=== PATIENT | female | born 1970 | race Caucasian/White ===

== ENCOUNTER 2024-07-02 12:00 | Inpatient (IN) | payer MEDICAID ==
[~2024-07-02] VITALS: Ht 160 cm; Wt 120.1 kg
[2024-07-02] MEDS ORDERED: loperamide 2mg capsule PO PRN (14:25)
[2024-07-02] MEDS ORDERED: acetaminophen 325mg tablet PO PRN (14:25)
[2024-07-02 14:40] VITALS: BP 119/84; PULSE 86; RESP 16; TEMP 97.8; O2SAT 95
[2024-07-02 15:00] VITALS: RESP 16; O2SAT 95
[2024-07-02] MEDS ORDERED: SERT-153 PO (17:40)
[2024-07-02] MEDS ORDERED: QUET200T PO (17:40)
[2024-07-02] MEDS ORDERED: CLON0.2T PO (17:40)
[2024-07-02] MEDS ORDERED: GABA300C PO (17:40)
[2024-07-02] MEDS ORDERED: CLON0.1T2 PO (17:40)
[2024-07-02] MEDS ORDERED: LEVO100T PO (17:43)
[2024-07-02] MEDS ORDERED: OMEP20CA16 PO (17:43)
[2024-07-02 18:49] VITALS: RESP 16; O2SAT 95
[2024-07-02 19:30] VITALS: BP 127/56; PULSE 78; RESP 17; TEMP 98.4; O2SAT 95
[2024-07-02] MEDS: pantoprazole 40mg Tablet.DR PO SCH (19:56)
[2024-07-02] MEDS: cloNIDine 0.1 mg tablet PO SCH (19:56)
[2024-07-02] MEDS: quetiapine 100mg tablet PO SCH (19:56)
[2024-07-02] MEDS: gabapentin 300mg capsule PO SCH (19:56)
[2024-07-03 06:57] LABS: EOSINOPHILS # (AUTO) 0.1 X10'3 (0-0.9); EOSINOPHILS % (AUTO) 2.3 % (0-6); HEMATOCRIT 37.5 % (35.0-45.0); HEMOGLOBIN 12.7 g/dl (12.0-16.0); LYMPHOCYTES % (AUTO) 23.8 % (21-51); MEAN CORPUSCULAR HEMOGLOBIN 30.3 PG (27.0-31.0); MEAN CORPUSCULAR HGB CONC 33.9 g/dL (33.0-36.5); MEAN CORPUSCULAR VOLUME 89.4 FL (78-98); MEAN PLATELET VOLUME 8.5 FL (7.4-10.4); MONOCYTES # (AUTO) 0.4 X10'3 (0-0.9); MONOCYTES % (AUTO) 8.8 % (2-12); NEUTROPHILS # (AUTO) 2.7 X10'3 (1.8-7.7); NEUTROPHILS % (AUTO) 64.1 % (42-75); PLATELET COUNT 183 X10'3 (140-440); RED BLOOD COUNT 4.19 X10'6 (4.20-5.60); RED CELL DISTRIBUTION WIDTH 14.4 % (11.5-14.5); WHITE BLOOD COUNT 4.3 X10'3 (4.5-11.0)
[2024-07-03 07:00] VITALS: RESP 14; O2SAT 90
[2024-07-03 07:15] LABS: ALANINE AMINOTRANSFERASE 36 U/L (12-78); ALBUMIN 3.3 G/DL (3.4-5.0); ALBUMIN/GLOBULIN RATIO 0.9 (1.1-1.5); ALKALINE PHOSPHATASE 90 IU/L (46-116); ANION GAP 6 (8-16); ASPARTATE AMINO TRANSFERASE 21 U/L (10-37); BILIRUBIN,TOTAL 0.8 MG/DL (0.1-1.0); BLOOD UREA NITROGEN 8 MG/DL (7-18); CALCIUM 8.8 MG/DL (8.5-10.1); CHLORIDE 108 MMOL/L (99-107); CHOL/HDL RATIO 5.6 (0.00-4.99); CHOLESTEROL 186 MG/DL (0-200); CREATININE 1.14 MG/DL (0.40-0.90); GLUCOSE 110 MG/DL (70-104); HDL CHOLESTEROL 33 MG/DL (35-60); LDL CHOLESTEROL 123 MG/DL (50-100); POTASSIUM 4.5 MMOL/L (3.5-5.1); SODIUM 144 MMOL/L (135-145); TOTAL CARBON DIOXIDE 29.6 MMOL/L (24-32); TOTAL PROTEIN 6.9 G/DL (6.4-8.2); TRIGLYCERIDES 157 MG/DL (20-135); eCRCL 47 ML/MIN; eGFR 50 ML/MIN
[2024-07-03 07:20] LABS: HEMOGLOBIN A1C 6.3 % (4.5-6.2)
[2024-07-03] MEDS: levoTHYROXINE 100mcg tablet PO SCH (07:30)
[2024-07-03] MEDS: sertraline 50mg tablet PO SCH (07:31)
[2024-07-03] MEDS: cloNIDine 0.1 mg tablet PO SCH (07:31)
[2024-07-03] MEDS: acetaminophen 325mg tablet PO PRN (07:32)
[2024-07-03 08:00] VITALS: BP 139/66; PULSE 77; RESP 14; TEMP 98.3; O2SAT 90
[2024-07-03] MEDS: LORazepam 1 MG tablet PO ONE (13:01)
[2024-07-03 13:08] LABS: PRO BRAIN NATRIURETIC PEPTIDE 129 PG/ML (0-125)
[2024-07-03 19:00] VITALS: RESP 16; O2SAT 94
[2024-07-03 20:00] VITALS: BP 117/63; PULSE 84; RESP 16; TEMP 97.3; O2SAT 94
[2024-07-03] MEDS: quetiapine 100mg tablet PO SCH (20:06)
[2024-07-04 07:00] VITALS: RESP 16; O2SAT 94
[2024-07-04 08:00] VITALS: BP 133/93; PULSE 92; RESP 16; TEMP 97.9; O2SAT 94
[2024-07-04] MEDS: hydrOXYzine 25 MG tablet PO PRN (08:30)
[2024-07-04] MEDS: LORazepam 1 MG tablet PO ONE (11:57)
[2024-07-04 19:00] VITALS: RESP 16; O2SAT 94
[2024-07-04 19:50] VITALS: BP 129/77; PULSE 72; RESP 16; TEMP 97.6; O2SAT 94
[2024-07-04] MEDS: traZODone 50mg tablet PO ONE (21:37)
[2024-07-05 07:40] VITALS: BP 136/96; PULSE 74; RESP 16; TEMP 97.1; O2SAT 91
[2024-07-05 08:24] VITALS: RESP 16; O2SAT 91
[2024-07-05] MEDS: mag hydrox/Alum hydrox/simeth 30ml oral suspension PO PRN (10:51)
[2024-07-05] MEDS: sertraline 50mg tablet PO ONE (16:56)
[2024-07-05] MEDS: LORazepam 1 MG tablet PO ONE (17:28)
[2024-07-05 19:42] VITALS: BP 128/77; PULSE 80; RESP 16; TEMP 97.6; O2SAT 95
[2024-07-05] MEDS: traZODone 50mg tablet PO SCH (20:08)
[2024-07-05] MEDS: quetiapine 100mg tablet PO SCH (20:08)
[2024-07-06] MEDS: quetiapine 100mg tablet PO SCH (07:35)
[2024-07-06] MEDS: sertraline 50mg tablet PO SCH (07:35)
[2024-07-06 07:38] VITALS: RESP 17; O2SAT 91
[2024-07-06 07:41] VITALS: BP 131/94; PULSE 69; RESP 17; TEMP 96.8; O2SAT 91
[2024-07-06 19:00] VITALS: RESP 12; O2SAT 92
[2024-07-06 20:10] VITALS: BP 111/71; PULSE 77; RESP 12; TEMP 98.1; O2SAT 92
[2024-07-06] MEDS: QUEtiapine 25mg tablet PO SCH (20:46)
[2024-07-07 07:00] VITALS: RESP 14; O2SAT 91
[2024-07-07] MEDS: sertraline 50mg tablet PO SCH (07:48)
[2024-07-07 08:00] VITALS: BP 106/65; PULSE 83; RESP 14; TEMP 97.1; O2SAT 91
[2024-07-07 19:00] VITALS: RESP 14; O2SAT 96
[2024-07-07 20:00] VITALS: BP 111/74; PULSE 68; RESP 14; TEMP 98.3; O2SAT 96
[2024-07-08 07:00] VITALS: RESP 12; RESP 16; O2SAT 91; O2SAT 98
[2024-07-08 08:00] VITALS: BP 137/89; PULSE 84; RESP 12; TEMP 97; O2SAT 91
[2024-07-08 19:28] VITALS: RESP 17; O2SAT 98
[2024-07-08] MEDS: magnesium hydroxide 30ml (MOM) UD suspension PO PRN (19:35)
[2024-07-08 19:57] VITALS: BP 115/85; PULSE 87; RESP 17; TEMP 97.2; O2SAT 98
[2024-07-09 07:00] VITALS: RESP 16; O2SAT 91
[2024-07-09 08:00] VITALS: BP 122/75; PULSE 75; RESP 16; TEMP 97.4; O2SAT 91
[2024-07-09] MEDS: magnesium citrate 296ml oral solution PO ONE (14:52)
[2024-07-09 19:00] VITALS: RESP 16; O2SAT 96
[2024-07-09 20:00] VITALS: BP 112/64; PULSE 83; RESP 16; TEMP 97.7; O2SAT 96
[2024-07-09] MEDS: docusate sod 100mg capsule PO SCH (20:20)
[2024-07-09] MEDS: Melatonin 3mg tablet PO ONE (22:39)
[2024-07-09] MEDS: gabapentin 300mg capsule PO ONE (22:40)
[2024-07-09] MEDS: magnesium oxide 400mg tablet PO SCH (22:40)
[2024-07-10 07:00] VITALS: RESP 18; O2SAT 94
[2024-07-10] MEDS: sertraline 50mg tablet PO SCH (07:33)
[2024-07-10 08:00] VITALS: BP 116/65; PULSE 83; RESP 18; TEMP 97; O2SAT 94
[2024-07-10 19:00] VITALS: RESP 16; O2SAT 100
[2024-07-10 20:00] VITALS: BP 102/57; PULSE 104; RESP 16; TEMP 98.3; O2SAT 100
[2024-07-10] MEDS: pramipexole 0.25mg tablet PO SCH (20:15)
[2024-07-10] MEDS: gabapentin 300mg capsule PO SCH (20:15)
[2024-07-11 07:50] VITALS: BP 122/83; PULSE 83; RESP 16; TEMP 98; O2SAT 96
[2024-07-11 08:00] VITALS: RESP 16; O2SAT 96
[2024-07-11 19:00] VITALS: BP 138/98; PULSE 85; RESP 18; TEMP 97; O2SAT 97
[2024-07-12 07:12] VITALS: BP 117/73; PULSE 81; RESP 16; TEMP 97; O2SAT 95
[2024-07-12 08:00] VITALS: RESP 16; O2SAT 96
[2024-07-12 19:07] VITALS: BP 129/73; PULSE 82; RESP 18; TEMP 97.2; O2SAT 94
[2024-07-13 08:00] VITALS: BP 145/97; PULSE 98; RESP 16; TEMP 97.7; O2SAT 94
[2024-07-13] MEDS ORDERED: QUET25TA36 PO (12:32)
[2024-07-13] MEDS ORDERED: gabapentin capsule PO (12:32)
[2024-07-13] MEDS ORDERED: CLON0.1T2 PO (12:32)
[2024-07-13] MEDS ORDERED: PANT40TA54 PO (12:32)
[2024-07-13] MEDS ORDERED: TRAZ-251 PO (12:32)
[2024-07-13] MEDS ORDERED: PRAMIPEXOLE DI HCL PO (12:32)
[2024-07-13] MEDS ORDERED: HYDR-3686 PO (12:32)
[2024-07-13] MEDS ORDERED: SERT200C PO (12:32)
[2024-07-13] MEDS ORDERED: LEVO100T9 PO (12:32)
[2024-07-13 19:00] VITALS: RESP 20; O2SAT 96
[2024-07-13 19:17] VITALS: BP 135/87; PULSE 82; RESP 20; TEMP 98; O2SAT 96
[2024-07-13] MEDS: traZODone 50mg tablet PO SCH (20:04)
[2024-07-14 08:00] VITALS: BP 140/80; PULSE 78; RESP 16; TEMP 96.2; O2SAT 92
[2024-07-14 19:00] VITALS: RESP 16; O2SAT 97
[2024-07-14 20:00] VITALS: PULSE 72; RESP 16; TEMP 97.9; O2SAT 97
[2024-07-15 07:00] VITALS: RESP 16; O2SAT 93
[2024-07-15 08:00] VITALS: BP 117/67; PULSE 68; RESP 16; TEMP 97.9; O2SAT 93
== END 2024-07-15 11:05 | DRG 753 ==
LOC: ADULT MH 12:00
PROVIDERS: ADMIT Psychiatry & Neurology Psychiatry; ATTEND Psychiatry & Neurology Psychiatry
PROC: GZHZZZZ Group Psychotherapy (ICD-10-PCS; principal; 2024-07-03)
PROC: GZ51ZZZ Individual Psychotherapy, Behavioral (ICD-10-PCS; 2024-07-03)
DX: F31.32 Bipolar disorder, current episode depressed, moderate (principal); R45.851 Suicidal ideations; G25.81 Restless legs syndrome; F41.9 Anxiety disorder, unspecified; E66.01 Morbid (severe) obesity due to excess calories; Z20.822 Contact with and (suspected) exposure to COVID-19; E03.9 Hypothyroidism, unspecified; F43.10 Post-traumatic stress disorder, unspecified; Z59.02 Unsheltered homelessness; Z79.899 Other long term (current) drug therapy; Z87.891 Personal history of nicotine dependence; Z68.42 Body mass index [BMI] 45.0-49.9, adult
CPT/HCPCS: 36415; 71045; 71046; 80053; 80061; 83036; 83880; 84443; 84480; 85025; 87081; 87811; Q0177

== ENCOUNTER 2024-08-22 14:50 | Inpatient (IN) | payer MEDICAID ==
[~2024-08-22] VITALS: Ht 160 cm; Wt 115.5 kg
[~2024-08-22 14:50] MED LIST: CLON0.1T2 PO; HYDR-3686 PO; LEVO100T9 PO; PANT40TA54 PO; PRAMIPEXOLE DI HCL PO; QUET25TA36 PO; SERT200C PO; TRAZ-251 PO; gabapentin capsule PO
[2024-08-22 16:45] VITALS: BP 119/95; PULSE 91; RESP 16; TEMP 97.8; O2SAT 95
[2024-08-22] MEDS ORDERED: mag hydrox/Alum hydrox/simeth 30ml oral suspension PO PRN (19:15)
[2024-08-22 19:23] VITALS: BP 123/76; PULSE 71; RESP 17; TEMP 98.1; O2SAT 96
[2024-08-22] MEDS ORDERED: HYDR-3686 PO (20:00)
[2024-08-22] MEDS ORDERED: PANT-47 PO (20:00)
[2024-08-22] MEDS ORDERED: PRAMIPEXOLE PO (20:00)
[2024-08-22] MEDS ORDERED: [UNRECOGNIZED DRUG - OTHER] PO (20:00)
[2024-08-22] MEDS ORDERED: CLON0.1T2 PO (20:00)
[2024-08-22] MEDS ORDERED: GABA-1405 PO (20:00)
[2024-08-22] MEDS ORDERED: LEVO100T PO (20:00)
[2024-08-22] MEDS ORDERED: CLON0.2T PO (20:00)
[2024-08-22] MEDS ORDERED: TRAZ-251 PO (20:03)
[2024-08-22] MEDS ORDERED: SERT100T PO (20:03)
[2024-08-22] MEDS ORDERED: QUET50TA PO (20:03)
[2024-08-22] MEDS: QUEtiapine 25mg tablet PO SCH (21:01)
[2024-08-22] MEDS: quetiapine 100mg tablet PO SCH (21:01)
[2024-08-22] MEDS: traZODone 50mg tablet PO SCH (21:01)
[2024-08-22] MEDS: pramipexole 0.25mg tablet PO SCH (21:01)
[2024-08-22] MEDS: hydrOXYzine 25 MG tablet PO PRN (21:02)
[2024-08-22] MEDS: acetaminophen 325mg tablet PO PRN (21:02)
[2024-08-22] MEDS: cloNIDine 0.1 mg tablet PO SCH (21:02)
[2024-08-22] MEDS: pantoprazole 40mg Tablet.DR PO SCH (21:02)
[2024-08-22] MEDS: gabapentin 300mg capsule PO SCH (21:02)
[2024-08-23 07:00] VITALS: RESP 20; O2SAT 95
[2024-08-23] MEDS: sertraline 50mg tablet PO SCH (07:17)
[2024-08-23] MEDS: levoTHYROXINE 100mcg tablet PO SCH (07:17)
[2024-08-23] MEDS: cloNIDine 0.1 mg tablet PO SCH (07:19)
[2024-08-23 07:54] LABS: CHOL/HDL RATIO 8.5 (0.00-4.99); CHOLESTEROL 262 MG/DL (0-200); HDL CHOLESTEROL 31 MG/DL (35-60); LDL CHOLESTEROL 181 MG/DL (50-100); TRIGLYCERIDES 235 MG/DL (20-135)
[2024-08-23 08:00] VITALS: BP 109/55; PULSE 64; RESP 20; TEMP 96.7; O2SAT 95
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
[2024-08-23 19:28] VITALS: BP 134/97; PULSE 79; RESP 18; TEMP 97.1; O2SAT 96
[2024-08-24 07:30] VITALS: BP 147/86; PULSE 84; RESP 20; TEMP 95.2; O2SAT 93
[2024-08-24 07:45] VITALS: RESP 20; O2SAT 93
--- NOTE | 2024-08-24 13:09 | PROGRESS NOTE ---
Progress Note Dictate Providers to CC ~ Central Line/PICC still needed: N\\A Antibiotic Ordered?: No MRSA Education MRSA Education Provided to pt: No Objective Vitals Vital Signs Date Time Temp Pulse Resp B/P (MAP) Pulse Ox O2 Delivery O2 Flow Rate FiO2 08/24/24 07:45 20 93 Room Air 08/24/24 07:30 95.2 84 147/86 (106) Problem\\Assessment\\Plan Problems/Diagnosis: (1) Major depression, chronic (2) Bipolar disorder with moderate depression (3) Suicidal ideation (4) Anxiety Psychiatrist's Progress Note Date of Service: Aug 24, 2024 Notes CHART REVIEW Rebecca is a 54-year-old female placed on a 1799 for SI at [facility]. client was awake and alert. She was orientated x4. Client describes her current mood as scared. Mood appeared anxious with congruent affect. Recall was immediate. Client reports that she had a medication change two weeks ago and her mental health struggles have increased since then. She shares that she has been hearing voices for several days and that they have increased in severity. She states that they have been telling her to kill herself. She shares that she was planning this morning and would have cut her wrist but was unable to find a knife. She states that she also consider an intentional overdose but that the program she is in [employer] discovery project hose her medication and distributes them as directed. Client reports that she was discharged from the hospital a few weeks ago around 0 07/12/2024. She shares that she was doing okay but thinks the medication change was too much for her. Client is unable to plan for safety currently. Client reported to access at last discharge but did not follow through with comprehensive assessment or connection for [facility]. ASSESSMENT The patient was interviewed in observation room. The patient was actively resting in bed with eyes open. The patient endorses "the voices are worse today ." "They were hollering at me last night; telling me to kill myself." Every since I was started on Zyprexa the voices has been awful." Patient endorses adequate sleep and food intake. The patient is stable no acute distress noted. The patient is suicidal, auditory hallunications and engaged during session. Per staff report the patient is medication compliant. Per staff report patient participating in group/unit activities. Will continue daily assessment and adjusting treatment as needed. Closely monitor behavior and response to medication during hospitalization. Results Of any Diagn. Testing REVIEW OF LABS TRIGLYCERIDES 235 CHOLESTEROL 262 LDL 181 HDL 31 SODIUM 138 POTASSIUM 3.4 CHLORIDE 111 ANION GAP 9 CALCIUM 9.4 ALT 31 AST 18 TSH 5.54 WBC 6.72 RBC 4.33 HGB 12.8 HCT 38.3 PLATELET COUNT 228 Appearnace: Other Speech: Other (CIRCUMSTANTIAL) Eye Contact: Other (INTERMITTENT) Motor Activity: Normal Affect: Flat Mood: Depressed Orientation Impairment: None Memory Impairment: None Attention: Normal Hallucinations: Auditory Other: None Suicidality: Ideation Homicidality: None Delusions: None Behavior: Agitated Insight: Poor Judgment: Poor Treatment CLONIDINE 0.1 MG P.O. Q.A.M. CLONIDINE 0.2 MG P.O. Q.H.S. ZOLOFT 200 MG P.O. DAILY Increase SEROQUEL 200 MG P.O. Q.H.S. GABAPENTIN 600 MG P.O. Q.H.S. Monitoring by Staff, Milieu, Group, and Individual counseling as needed -- According to the [place] Suicide Assessment the above named patient is on Q15 MINUTE CHECKS. [id number]-Patient is unable to formulate a plan to safely meet their basic needs of food, clothing, and long term due to the severity of their mental illness. We are still titrating medications to an effective dose while mainta ining a therapeutic environment to prevent decompensation and readmission. REVIEW OF Clinical notes [X ] RN notes [X] PCT documentation [X] SW notes Labs [ X] Medications [X] Care trends/care activity [X] Vitals [X] DISCUSSION WITH synthetic soil blocks pulper [X] Staff SW [X] Treatment Team [X] Discharge UNSURE AT THIS TIME. DISCHARGE HOME ONCE STABLE. CODING VISIT-PSYCHIATRY Date of Service: Aug 24, 2024 Billing Provider: EDWIN STRINGER APRN Psych Common Visit Codes: [id number] INP/OBS CARE(Mod) EDWIN STRINGER APRN Aug 24, 2024 13:09
[2024-08-24 19:33] VITALS: BP 111/65; PULSE 73; RESP 18; TEMP 97.6; O2SAT 99
[2024-08-24] MEDS: quetiapine 100mg tablet PO SCH (20:25)
[2024-08-25 07:00] VITALS: BP 112/71; PULSE 75; RESP 18; TEMP 97.8; O2SAT 98
[2024-08-25 09:26] VITALS: RESP 17; O2SAT 97
--- NOTE | 2024-08-25 12:37 | PROGRESS NOTE ---
Progress Note Dictate Providers to CC ~ Central Line/PICC still needed: N\\A Antibiotic Ordered?: No MRSA Education MRSA Education Provided to pt: No Objective Vitals Vital Signs Date Time Temp Pulse Resp B/P (MAP) Pulse Ox O2 Delivery O2 Flow Rate FiO2 08/25/24 09:26 17 97 Room Air 08/25/24 07:00 97.8 75 112/71 (85) Problem\\Assessment\\Plan Problems/Diagnosis: (1) Major depression, chronic (2) Bipolar disorder with moderate depression (3) Suicidal ideation (4) Anxiety Psychiatrist's Progress Note Date of Service: Aug 25, 2024 Notes CHART REVIEW Rebecca is a 54-year-old female placed on a 1799 for SI at [facility]. client was awake and alert. She was orientated x4. Client describes her current mood as scared. Mood appeared anxious with congruent affect. Recall was immediate. Client reports that she had a medication change two weeks ago and her mental health struggles have increased since then. She shares that she has been hearing voices for several days and that they have increased in severity. She states that they have been telling her to kill herself. She shares that she was planning this morning and would have cut her wrist but was unable to find a knife. She states that she also consider an intentional overdose but that the program she is in [employer] discovery project hose her medication and distributes them as directed. Client reports that she was discharged from the hospital a few weeks ago around 0 07/12/2024. She shares that she was doing okay but thinks the medication change was too much for her. Client is unable to plan for safety currently. Client reported to access at last discharge but did not follow through with comprehensive assessment or connection for [facility]. ASSESSMENT The patient was interviewed in observation room. The patient was actively resting in bed with eyes open. The patient endorses "I am not having the best." "I myself to get in the shower and the voices are worse when I get in the shower." "They are making fun of me and trying to convince me that they killed my ." I haven't started this till I started olanzapine." "I was doing good on Seroquel for 2 years." " I am sleeping good though." The patient endorses adequate sleep and food intake. Denies SI. Denies HI. Denies VH. The patient is stable no acute distress noted. The patient is cooperative, auditory hallucinations and engaged during session. Per staff report the patient is medication compliant. Per staff report patient participating in group/unit activities. Will continue daily assessment and adjusting treatment as needed. Closely monitor behavior and response to medication during hospitalization. Results Of any Diagn. Testing REVIEW OF LABS TRIGLYCERIDES 235 CHOLESTEROL 262 LDL 181 HDL 31 SODIUM 138 POTASSIUM 3.4 CHLORIDE 111 ANION GAP 9 CALCIUM 9.4 ALT 31 AST 18 TSH 5.54 WBC 6.72 RBC 4.33 HGB 12.8 HCT 38.3 PLATELET COUNT 228 Appearnace: Other Speech: Other (CIRCUMSTANTIAL) Eye Contact: Other (INTERMITTENT) Motor Activity: Normal Affect: Constricted Orientation Impairment: None Memory Impairment: None Attention: Normal Hallucinations: Auditory Other: None Homicidality: None Delusions: None Behavior: Cooperative Insight: Poor Judgment: Poor Treatment CLONIDINE 0.1 MG P.O. Q.A.M. CLONIDINE 0.2 MG P.O. Q.H.S. ZOLOFT 200 MG P.O. DAILY Increase SEROQUEL 250 MG P.O. Q.H.S. GABAPENTIN 600 MG P.O. Q.H.S. Monitoring by Staff, Milieu, Group, and Individual counseling as needed -- According to the [place] Suicide Assessment the above named patient is on Q15 MINUTE CHECKS. [id number]-Patient is unable to formulate a plan to safely meet their basic needs of food, clothing, and care home due to the severity of their mental illness. We are still titrating medications to an effective dose while maintaining a therapeutic environment to prevent decompensation and readmission. REVIEW OF Clinical notes [X ] RN notes [X] PCT documentation [X] SW notes Labs [ X] Medications [X] Care trends/care activity [X] Vitals [X] DISCUSSION WITH diamond assorter [X] Staff SW [X] Treatment Team [X] Discharge UNSURE AT THIS TIME. DISCHARGE HOME ONCE STABLE. CODING VISIT-PSYCHIATRY Date of Service: Aug 25, 2024 Billing Provider: EDWIN STRINGER APRN Psych Common Visit Codes: [id number] INP/OBS CARE(Mod) EDWIN STRINGER APRN Aug 25, 2024 12:36
--- NOTE | 2024-08-25 17:10 | PROGRESS NOTE ---
Daily Progress Note Providers to CC ~ Antibiotic Timeout Antibiotic Ordered?: No Subjective Patient was seen in presence of mental health nursing staff today. Patient denies any concerns passed the stools today ambulating well. Patient has dry cracked he she can apply topical moisturizer and antifungal cream before going to bed at night daily. Objective Vital Signs Date Time Temp Pulse Resp B/P (MAP) Pulse Ox O2 Delivery O2 Flow Rate FiO2 08/25/24 09:26 17 97 Room Air 08/25/24 07:00 97.8 75 112/71 (85) General-patient not in any acute distress, alert awake ,obese, age-appropriate, looks comfortable HEENT-atraumatic normocephalic, neck supple without elevated JVD, no thyromegaly or carotid bruit. No lymphadenopathy bilaterally. Eyes-no icterus or pallor seen in eyes Chest-clear to auscultation bilaterally, breathing nonlabored no tachypnea, no wheezing, no crepitation, no crackles. Heart-S1-S2 normal, regular heart rate no murmur Abdomen bowel sounds positive on auscultation, soft nondistended nontender no guarding, no rigidity Skin no active skin rash, dry cracked heels Neurology-grossly intact, nonfocal alert awake Extremity- no pedal edema able to move all 4 extremities Psychiatry - patient is not confused or agitated cooperated during physical examination Problem\Assessment\Plan 1) Major depression, chronic (2) Bipolar disorder with moderate depression (3) Suicidal ideation (4) Anxiety Further management for patient's psychiatric issues as per psychiatric team. Patient has dry cracked he she can apply topical moisturizer and antifungal cream before going to bed at night daily. Also follow fall precautions and put the socks on at bedtime. Date of Service: Aug 25, 2024 Billing Provider: KATE ALATORRE MD Common Visit Codes: [id number] INP/OBS CARE(LOW) KATE ALATORRE MD Aug 25, 2024 17:10
[2024-08-25 19:00] VITALS: RESP 18; O2SAT 90
[2024-08-25 20:00] VITALS: BP 108/69; PULSE 78; RESP 18; TEMP 97.1; O2SAT 90
[2024-08-26 07:00] VITALS: RESP 16; O2SAT 97
[2024-08-26] MEDS: miconazole nitrate 28.35 gm derm cream TP SCH (07:25)
[2024-08-26 08:00] VITALS: BP 140/88; PULSE 82; RESP 16; TEMP 97.6; O2SAT 91
[2024-08-26 10:17] VITALS: BP 122/80; O2SAT 97
--- NOTE | 2024-08-26 12:04 | PROGRESS NOTE ---
Progress Note Dictate Providers to CC ~ Central Line/PICC still needed: N\A Antibiotic Ordered?: No Objective Vitals Vital Signs Date Time Temp Pulse Resp B/P (MAP) Pulse Ox O2 Delivery O2 Flow Rate FiO2 08/26/24 10:17 122/80 (94) 97 08/26/24 08:00 97.6 82 16 Room Air Problem\Assessment\Plan Problems/Diagnosis: (1) Bipolar disorder with moderate depression (2) Suicidal ideation (3) Psychosis Psychiatrist's Progress Note Date of Service: Aug 26, 2024 Notes Ms Rebecca Pastrana is a 54yo patient presents with psychiatric problem, suicidal ideation and patient brought in by ambulance from home. Patient has a history of schizophrenia and had a change in her medications from Seroquel to Zyprexa two weeks ago. Patient states over the last 2-3 days she has been hearing inc reasing voices. Tonight they told her to hurt herself in her kids. She states she thought about hurting herself and thought about cutting herself but there was nothing sharp enough to do this with so she did not try. She denies any overdose. No other complaints. CHART REVIEW Rebecca is a 54-year-old female placed on a 1799 for SI at [facility]. client was awake and alert. She was orientated x4. Client describes her current mood as scared. Mood appeared anxious with congruent affect. Recall was immediate. Client reports that she had a medication change two weeks ago and her mental health struggles have increased since then. She shares that she has been hearing voices for several days and that they have increased in severity. She states that they have been telling her to kill herself. She shares that she was planning this morning and would have cut her wrist but was unable to find a knife. She states that she also consider an intentional overdose but that the program she is in [employer] [facility] [employer] hose her medication and distributes them as directed. Client reports that she was discharged from the hospital a few weeks ago around 0 07/12/2024. She shares that she was doing okay but thinks the medication change was too much for her. Client is unable to plan for safety currently. Client reported to access at last discharge but did not follow through with comprehensive assessment or connection for [facility]. Denies VH. Voices have come back after two years. Feeling that the voices really are coming after her. Thinks it was when she got on zyprexa. 'I should have never got off seroquel.' The extra seroquel this afternoon helped. Was having loud voices. Telling if she doesn't kill herself they are going to kill her kids. Mimic her 's voice. 'real tore up today.' Still feeling depressed. Up and down. Denies SI. Part of [employer] [facility]. Sleep has been good. Mental Status MENTAL STATUS EXAM APPEARANCE: Slightly disheveled SPEECH: CIRCUMSTANTIAL/Linear EYE CONTACT: NORMAL AFFECT: Flat MOOD: DEPRESSED ORIENTATION IMPAIRMENT: NONE MEMORY IMPAIRMENT: NONE ATTENTION: FULL HALLUCINATIONS: Having AH. Denies VH. Denies Paranoid thinking SUICIDALITY: IDEATION, PLAN DELUSIONS: NONE BEHAVIOR: COOPERATIVE JUDGMENT: POOR INSIGHT: POOR Results Of any Diagn. Testing REVIEW OF LABS TRIGLYCERIDES 235 CHOLESTEROL 262 LDL 181 HDL 31 SODIUM 138 POTASSIUM 3.4 CHLORIDE 111 ANION GAP 9 CALCIUM 9.4 ALT 31 AST 18 TSH 5.54 WBC 6.72 RBC 4.33 HGB 12.8 HCT 38.3 PLATELET COUNT 228 Treatment CLONIDINE 0.1 MG P.O. Q.A.M. CLONIDINE 0.2 MG P.O. Q.H.S. ZOLOFT 200 MG P.O. DAILY SEROQUEL 250 MG P.O. Q.H.S. GABAPENTIN 600 MG P.O. Q.H.S. Monitoring by Staff, Milieu, Group, and Individual counseling as needed -- According to the [place] Suicide Assessment the above named patient is on Q15 MINUTE CHECKS. VOL--DTS-- We are still titrating medications to an effective dose while maintaining a therapeutic environment to prevent decompensation and readmission. REVIEW OF Clinical notes [X ] RN notes [X] PCT documentation [X] notes [X] Labs [ X] Medications [X] Care trends/care activity [X] Vitals [X] DISCUSSION WITH sales engagement executive [X] DISCHARGE [employer] [facility] CODING VISIT-PSYCHIATRY Date of Service: Aug 26, 2024 Billing Provider: MARLI LING Psych Common Visit Codes: [id number] INP/OBS CARE(High) Problem Qualifiers (1) Psychosis: MARLI LING Aug 26, 2024 12:04
[2024-08-26] MEDS ORDERED: OLANZAPINE 5 MG TABLET PO PRN (14:50)
[2024-08-26] MEDS: QUEtiapine 25mg tablet PO ONE (15:08)
[2024-08-26 19:00] VITALS: RESP 18; O2SAT 92
[2024-08-26 20:00] VITALS: BP 120/84; PULSE 80; RESP 18; TEMP 99.8; O2SAT 92
[2024-08-27 07:00] VITALS: RESP 14; O2SAT 94
--- NOTE | 2024-08-27 07:58 | HISTORY AND PHYSICAL ---
History & Physical Providers to CC ~[facility] [address] History and Physical Provider Documentation Provider YEFRI BANUELOS MD, (Archived), , Date of Admit: 07/02/24 Patient Name: SUZY OSCAR Age: 54 : 1970 Sex: F MR #: [id number] Referring Provider: Report #: [id number] Primary Care Provider: NO PRIMARY CARE PROVIDER Send out: N History & Physical Providers to Chief complaint, no new complaint today resting comfortably in the bed ~ History of Present Illness Reason for Admit\Complaint: Suicidal ideation History of Present Illness This is a 54 years old white female with history of multiple medical problems including schizophrenia, major depression, bipolar disorder, history of suicidal ideation, morbid obesity BMI 44, hypothyroidism, hypertension, obstructive sleep apnea, prediabetes, GERD, ex-smoker, restless leg syndrome, presented and was admitted to mental unit yesterday with chief complaint suicidal ideation; in addition Pt admitted to [facility] from [facility] on a 5150 for DTS. 5150 states that pt reported she has been hearing voices for several days since her med change and she said that she wanted to cut her wrist but could not find a blade. She is unable to safety plan. She was started on medication by psychiatric team, no additional complaint or concern now resting comfortably in the bed. Allergies: Coded Allergies: No Known Drug Allergies (Verified Allergy, Unknown, 07/02/24) Active prescriptions I reviewed reconciled Home Medications Home Medications Active Reported Trazodone HCl 50 Mg Tablet 3 Tab PO HS Zoloft (Sertraline Hcl) 100 Mg Tablet 200 Mg PO DAILY Seroquel (Quetiapine Fumarate) 50 Mg Tablet 3 Tab PO HS [pramidexole Dl-HCL] 0.25 Mg PO HS PROTONIX tablet (Pantoprazole Sodium) 40 Mg Tablet.dr 40 Mg PO HS Synthroid (Levothyroxine Sodium) 100 Mcg Tablet 1 Tab PO DAILY Atarax* (Hydroxyzine HCl) 25 Mg Tablet 2 Tab PO Q6H PRN Gabapentin 600 Mg Tablet 1 Tab PO HS Clonidine Hcl 0.2 Mg Tablet 1 Tab PO HS Clonidine HCl 0.1 Mg Tablet 1 Tab PO DAILY Past Medical History Past Medical History As in HPI Past Surgical History Surgical History Comment As in HPI Family History Family History: Family history was reviewed; no changes noted. Past Social History Social History Comment Ex-smoker, deny illicit drug abuse tobacco alcohol use now live with the family good social support Health Maintenance Health Maintenance Noncontributory ROS ROS Constitutional : no fever , no chills, or weakness. No diaphoresis. Allergic/Immunologic, no lymphadenopathy, no hives, no skin eruptions. Eyes, no recent visual changes, no eye pain, no photophobia. Ears, nose, mouth, throat, no sore throat, no nosebleed, no ear pain. Cardiovascular, no palpitations, skipped beats, chest pain, no peripheral edema, Respiratory, no dyspnea, orthopnea, cough, hemoptysis, chest wall pain. Gastrointestinal, no abdominal pain, nausea, vomiting, constipation or diarrhea. : no dysuria, hematuria, pelvic pain, urethral d/c. Endocrine, no polyuria, polydipsia, recent unintentional weight gain or loss. Hematologic/Lymphatic, no petechiae, no enlarged lymph nodes, no bone pain. Integumentary, no rash, no skin lesions, Musculoskeletal, no muscle aches, or pain, no muscle cramps, no recent change in gait Neurological, no dizziness, no headache, no syncope, no paresthesia. Psychiatric, no delusions, visual hallucinations, or hearing hallucinations. ROS - in rest is as in HPI. Exam Vitals: Vital signs, stable ,afebrile. Pulse Oximetry reflects adequate oxygenation. BMI is 46, weight 120 kg General: well developed, well nourished. Awake , alert, and oriented x4, resting comfortably in the bed, in no acute distress . Skin: Warm, dry, no pallor, no rash or petechiae. HEENT: Atraumatic, normocephalic, EOMI, anicteric sclera B; pink conjunctiva; PERRLA, normal oropharynx, moist oral and nasal mucosa. Tympanic membrane , nose , throat clear. Neck: Trachea midline. Supple, full range of motion, no JVD, bruit , hepatojugular reflex , lymphadenopathy or masses, or other lesions Cardiac: Regular rhythm, regular rate no murmurs, rubs, or gallops. Normal S1 and S2, no S3 noticed. PMI is normal. Respiratory: Equal breath sounds bilaterally, no tachypnea; lungs clear to auscultation bilaterally, no wheezing ,rub or rales, or crackles. Chest wall is symmetric and without deformity. No signs of trauma. Chest wall is nontender. No signs of respiratory distress. Resonance is normal upon percussion bilaterally. Gastrointestinal: Abdomen symmetric, non-distended, soft, non-tender, normal bowel sounds x4 quadrant, normoactive, no hepatosplenomegaly , no masses , no bruit, no flank pain bilaterally. No voluntary guarding, rebound, or rigidity. No tenderness to percussion. No pulsatile masses. Equal femoral pulses. No Patrick's sign or McBurney point tenderness. Back; no CVA tenderness bilaterally, no deformities. Neck and back are without deformity as well. No tenderness noted on palpation of the spinous processes. Spinous processes are midline. Cervical, thoracic, and lumbar paraspinal muscles are not tender and are without spasm. : Not indicated Musculoskeletal: Extremities, normal range of motion, non-tender, muscle strength 5/5 x 4. Negative Homans signs bilaterally on lower extremity. Distal pulses full symmetrical, no clubbing, cyanosis , edema. Neurological: Speech is clear, alert, and oriented x 4. No motor or sensory deficit, deep tendon reflexes normal, cerebellar intact. Cranial nerves II-XII intact. Psych: Alert and or appropriate, normal affect. Vascular: Good distal pulses, which are equal x4; capillary refill less than 2 seconds. Lymphatic, no lymphadenopathy. Advance Care Planning Advanced Care plannin - 30 Minutes Additional Plan Assessment Chronic schizophrenia in exacerbation Chronic bipolar disorder in exacerbation Chronic major depression in exacerbation Suicidal ideation secondary to all of the above Morbid obesity BMI 44 Hypertension fair control Obstructive sleep apnea history of GERD, ex-smoker, prediabetes, restless leg syndrome Dyslipidemia Hypothyroidism fair control Plan Psychiatric conditions treatment per Psychiatric team Nutrition consult Started on statins Additional lab work pending Respiratory therapy consult T4 pending I reconciled home medications DVT gastropathy prophylaxis addressed Hospitalist team we will follow the patient per protocol Sepsis Screening Reassessment Date: Aug 23, 2024 Date of Service: Aug 23, 2024 Billing Provider: YEFRI BANUELOS MD Common Visit Codes: [id number] INP/OBS CARE (MOD) YEFRI BANUELOS MD Aug 23, 2024 14:25 Electronically Signed by: YEFRI BANUELOS MD, (Archived), 04/22/25 1927 Electronically Co-Signed by: cc: History of Present Illness Reason for Admit\Complaint: as above History of Present Illness as above Allergies: Coded Allergies: No Known Drug Allergies (Verified Allergy, Unknown, 07/02/24) Home Medications Home Medications Active Reported Trazodone HCl 50 Mg Tablet 3 Tab PO HS Zoloft (Sertraline Hcl) 100 Mg Tablet 200 Mg PO DAILY Seroquel (Quetiapine Fumarate) 50 Mg Tablet 3 Tab PO HS [pramidexole Dl-HCL] 0.25 Mg PO HS PROTONIX tablet (Pantoprazole Sodium) 40 Mg Tablet.dr 40 Mg PO HS Synthroid (Levothyroxine Sodium) 100 Mcg Tablet 1 Tab PO DAILY Atarax* (Hydroxyzine HCl) 25 Mg Tablet 2 Tab PO Q6H PRN Gabapentin 600 Mg Tablet 1 Tab PO HS Clonidine Hcl 0.2 Mg Tablet 1 Tab PO HS Clonidine HCl 0.1 Mg Tablet 1 Tab PO DAILY Exam Vitals: Vital Signs Date Time Temp Pulse Resp B/P (MAP) Pulse Ox O2 Delivery O2 Flow Rate FiO2 08/26/24 20:00 99.8 80 18 120/84 (96) 92 Room Air Date of Service: Aug 23, 2024 Billing Provider: YEFRI BANUELOS MD Common Visit Codes: [id number] INP/OBS CARE(MOD) YEFRI BANUELOS MD Aug 27, 2024 07:58
[2024-08-27 08:00] VITALS: BP 161/103; PULSE 76; RESP 14; TEMP 97.6; O2SAT 94
[2024-08-27] MEDS: QUEtiapine 25mg tablet PO PRN (13:49)
--- NOTE | 2024-08-27 14:11 | PROGRESS NOTE ---
Daily Progress Note Providers to CC No new complaint today, resting comfortably in the bed ~ Central Line/PICC still needed: No Rodriguez-Non Protocol Rodriguez Indications Met/Not Met: F/C Indications Not Met Antibiotic Timeout Antibiotic Ordered?: No MRSA Education MRSA Education Provided to pt: No Subjective As above Objective Vital Signs Date Time Temp Pulse Resp B/P (MAP) Pulse Ox O2 Delivery O2 Flow Rate FiO2 08/27/24 08:00 97.6 76 14 161/103 (122) 94 Room Air Vital signs, stable ,afebrile. Pulse Oximetry reflects adequate oxygenation. General: well developed, well nourished. Awake , alert, and oriented x4, resting comfortably in the bed, in no acute distress . Skin: Warm, dry, no pallor, no rash or petechiae. HEENT: Atraumatic, normocephalic, EOMI, anicteric sclera B; pink conjunctiva; PERRLA, normal oropharynx, moist oral and nasal mucosa. Tympanic membrane , nose , throat clear. Neck: Trachea midline. Supple, full range of motion, no JVD, bruit , hepatojugular reflex , lymphadenopathy or masses, or other lesions Cardiac: Regular rhythm, regular rate no murmurs, rubs, or gallops. Normal S1 and S2, no S3 noticed. PMI is normal. Respiratory: Equal breath sounds bilaterally, no tachypnea; lungs clear to auscultation bilaterally, no wheezing ,rub or rales, or crackles. Chest wall is symmetric and without deformity. No signs of trauma. Chest wall is nontender. No signs of respiratory distress. Resonance is normal upon percussion bilaterally. Gastrointestinal: Abdomen symmetric, non-distended, soft, non-tender, normal bowel sounds x4 quadrant, normoactive, no hepatosplenomegaly , no masses , no bruit, no flank pain bilaterally. No voluntary guarding, rebound, or rigidity. No tenderness to percussion. No pulsatile masses. Equal femoral pulses. No Patrick's sign or McBurney point tenderness. Back; no CVA tenderness bilaterally, no deformities. Neck and back are without deformity as well. No tenderness noted on palpation of the spinous processes. Spinous processes are midline. Cervical, thoracic, and lumbar paraspinal muscles are not tender and are without spasm. Musculoskeletal: Extremities, normal range of motion, non-tender, muscle strength 5/5 x 4. Negative Homans signs bilaterally on lower extremity. Distal pulses full symmetrical, no clubbing, cyanosis , edema. Neurological: Speech is clear, alert, and oriented x 4. No motor or sensory deficit, deep tendon reflexes normal, cerebellar intact. Cranial nerves II-XII intact. Psych: Alert and or appropriate, normal affect. Vascular: Good distal pulses, which are equal x4; capillary refill less than 2 seconds. Lymphatic, no lymphadenopathy. Problem\Assessment\Plan Assessment Chronic schizophrenia in exacerbation Chronic bipolar disorder in exacerbation Chronic major depression in exacerbation Suicidal ideation secondary to all of the above Morbid obesity BMI 44 Hypertension fair control Obstructive sleep apnea history of GERD, ex-smoker, prediabetes, restless leg syndrome Dyslipidemia Hypothyroidism fair control Plan Psychiatric conditions treatment per Psychiatric team Nutrition consult Started on statins Additional lab work pending Respiratory therapy consult control blood pressure T4 pending I reconciled home medications DVT gastropathy prophylaxis addressed Hospitalist team we will follow the patient per protocol Sepsis Screening Reassessment Date: Aug 27, 2024 Date of Service: Aug 27, 2024 Billing Provider: YEFRI BANUELOS MD Common Visit Codes: [id number] INP/OBS CARE(MOD) YEFRI BANUELOS MD Aug 27, 2024 14:11
--- NOTE | 2024-08-27 15:10 | PROGRESS NOTE ---
Progress Note Dictate Providers to CC ~ Central Line/PICC still needed: N\A Antibiotic Ordered?: No Objective Vitals Vital Signs Date Time Temp Pulse Resp B/P (MAP) Pulse Ox O2 Delivery O2 Flow Rate FiO2 08/27/24 08:00 97.6 76 14 161/103 (122) 94 Room Air Problem\Assessment\Plan Problems/Diagnosis: (1) Bipolar disorder with moderate depression (2) Suicidal ideation (3) Psychosis Psychiatrist's Progress Note Date of Service: Aug 27, 2024 Notes Ms Rebecca Pastrana is a 54yo patient presents with psychiatric problem, suicidal i deation and patient brought in by ambulance from home. Patient has a history of schizophrenia and had a change in her medications from Seroquel to Zyprexa two weeks ago. Patient states over the last 2-3 days she has been hearing increasing voices. Tonight they told her to hurt herself in her kids. She states she thought about hurting herself and thought about cutting herself but there was nothing sharp enough to do this with so she did not try. She denies any overdose. No other complaints. CHART REVIEW Rebecca is a 54-year-old female placed on a 1799 for SI at [facility]. client was awake and alert. She was orientated x4. Client describes her current mood as scared. Mood appeared anxious with congruent affect. Recall was immediate. Client reports that she had a medication change two weeks ago and her mental health struggles have increased since then. She shares that she has been hearing voices for several days and that they have increased in severity. She states that they have been telling her to kill herself. She shares that she was planning this morning and would have cut her wrist but was unable to find a knife. She states that she also consider an intentional overdose but that the program she is in [employer] [facility] hose her medication and distributes them as directed. Client reports that she was discharged from the hospital a few weeks ago around 0 07/12/2024. She shares that she was doing okay but thinks the medication change was too much for her. Client is unable to plan for safety currently. Client reported to access at last discharge but did not follow through with comprehensive assessment or connection for Community Services. Patient is a short obese female. She has shoulder length brown graying hair. She appears a bit disheveled. Denies VH. Voices have come back after two years. Feeling that the voices really are coming after her. Thinks it was when she got on zyprexa. 'I should have never got off seroquel.' The extra seroquel this afternoon helped. Was having loud voices. Telling if she doesn't kill herself they are going to kill her kids. Mimic her 's voice. 'real tore up today.' Still feeling depressed. Up and down. Denies SI. Part of [employer] [facility]. Sleep has been good. Voices got wound up earlier and took an extra seroquel today and 'the voices calmed down.' The voices said they had killed my if I didn't kill myself then they would kill my children too. They are really mocking and bullying. Mimic her 's voice sometimes. Making a little bit tired but 'I'll get used to it. 'I'm okay.' Not too depression. No Suicidal thoughts. Anxiety will increase because of the voices but much better now. Sleeping okay. Eating good, Getting enough fluids. Last BM was 2d ago. Passing gas. No nausea or abd pain. Mental Status MENTAL STATUS EXAM APPEARANCE: Disheveled SPEECH: Circumstantial, EYE CONTACT: Fair AFFECT: Flat MOOD: Depressed ORIENTATION IMPAIRMENT: None MEMORY IMPAIRMENT: None HALLUCINATIONS: POS AH. Denies VH. Denies Paranoia SUICIDALITY: IDEATION, PLAN DELUSIONS: Denies BEHAVIOR: Calm and Cooperative JUDGMENT: Poor INSIGHT: Poor Results Of any Diagn. Testing TRIGLYCERIDES 235 CHOLESTEROL 262 LDL 181 HDL 31 SODIUM 138 POTASSIUM 3.4 CHLORIDE 111 ANION GAP 9 CALCIUM 9.4 ALT 31 AST 18 TSH 5.54 WBC 6.72 RBC 4.33 HGB 12.8 HCT 38.3 PLATELET COUNT 228 Treatment ADD Seroquel 50mg one po bid PRN psychosis or agitation CLONIDINE 0.1 MG P.O. Q.A.M. CLONIDINE 0.2 MG P.O. Q.H.S. ZOLOFT 200 MG P.O. DAILY SEROQUEL 250 MG P.O. Q.H.S. GABAPENTIN 600 MG P.O. Q.H.S. Monitoring by Staff, Milieu, Group, and Individual counseling as needed -- According to the [place] Suicide Assessment the above named patient is on Q15 MINUTE CHECKS. VOL--DTS-- We are still titrating medications to an effective dose while maintaining a therapeutic environment to prevent decompensation and readmission. 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
[2024-08-27 15:38] LABS: BASOPHILS % (AUTO) 0.7 % (0-1); EOSINOPHILS # (AUTO) 0.3 X10'3 (0-0.9); HEMATOCRIT 36.1 % (35.0-45.0); HEMOGLOBIN 12.2 g/dl (12.0-16.0); LYMPHOCYTES # (AUTO) 1.8 X10'3 (1.1-4.8); LYMPHOCYTES % (AUTO) 28.3 % (21-51); MEAN CORPUSCULAR HEMOGLOBIN 29.1 PG (27.0-31.0); MEAN CORPUSCULAR HGB CONC 33.7 g/dL (33.0-36.5); MEAN CORPUSCULAR VOLUME 86.4 FL (78-98); MEAN PLATELET VOLUME 8.4 FL (7.4-10.4); MONOCYTES # (AUTO) 0.5 X10'3 (0-0.9); MONOCYTES % (AUTO) 7.5 % (2-12); NEUTROPHILS # (AUTO) 3.8 X10'3 (1.8-7.7); NEUTROPHILS % (AUTO) 59.5 % (42-75); PLATELET COUNT 204 X10'3 (140-440); RED BLOOD COUNT 4.18 X10'6 (4.20-5.60); RED CELL DISTRIBUTION WIDTH 14.1 % (11.5-14.5); WHITE BLOOD COUNT 6.3 X10'3 (4.5-11.0)
[2024-08-27 15:45] LABS: ALANINE AMINOTRANSFERASE 52 U/L (12-78); ALBUMIN 3.2 G/DL (3.4-5.0); ALBUMIN/GLOBULIN RATIO 0.9 (1.1-1.5); ALKALINE PHOSPHATASE 91 IU/L (46-116); ANION GAP 6 (8-16); ASPARTATE AMINO TRANSFERASE 18 U/L (10-37); BILIRUBIN,TOTAL 0.4 MG/DL (0.1-1.0); BLOOD UREA NITROGEN 18 MG/DL (7-18); BUN/CREATININE RATIO 16.8 (10.0-20.0); CHLORIDE 105 MMOL/L (99-107); CREATININE 1.07 MG/DL (0.40-0.90); GLUCOSE 126 MG/DL (70-104); SODIUM 141 MMOL/L (135-145); TOTAL PROTEIN 6.6 G/DL (6.4-8.2); eCRCL 50 ML/MIN; eGFR 54 ML/MIN
[2024-08-27 19:00] VITALS: RESP 16; O2SAT 95
[2024-08-27 19:04] LABS: BILIRUBIN,URINE NEGATIVE (Neg); CLARITY,URINE CLEAR (Clear); COLOR,URINE YELLOW (Yellow); GLUCOSE, URINE NEGATIVE (Neg); KETONES,URINE NEGATIVE (Neg); LEUKOCYTE ESTERASE ,URINE NEGATIVE (Neg); NITRITES, URINE NEGATIVE (Neg); OCCULT BLOOD,URINE NEGATIVE (Neg); PROTEIN,URINE NEGATIVE (Neg); UROBILINOGEN,URINE 0.2 E.U/dL (0.2-1.0)
[2024-08-27 19:06] LABS: UA COLLECTION TYPE NON-SPECIFIED
[2024-08-27 20:23] VITALS: BP 130/99; PULSE 75; RESP 16; TEMP 98.4; O2SAT 95
[2024-08-28 07:00] VITALS: RESP 15; O2SAT 91
[2024-08-28] MEDS: HYDROchlorothiazide 25mg tablet PO SCH (07:28)
[2024-08-28 08:00] VITALS: BP 117/62; PULSE 80; RESP 15; TEMP 96.7; O2SAT 91
--- NOTE | 2024-08-28 11:33 | PROGRESS NOTE ---
Progress Note Dictate Providers to CC ~ Central Line/PICC still needed: N\A Antibiotic Ordered?: No Objective Vitals Vital Signs Date Time Temp Pulse Resp B/P (MAP) Pulse Ox O2 Delivery O2 Flow Rate FiO2 08/28/24 08:00 96.7 80 15 117/62 (80) 91 Room Air Lab Results: 08/27/24 1448 08/27/24 1448 Problem\Assessment\Plan Problems/Diagnosis: (1) Bipolar disorder with moderate depression (2) Suicidal ideation (3) Psychosis Psychiatrist's Progress Note Date of Service: Aug 28, 2024 Notes Ms Rebecca Pastrana is a 54yo patient presents with psychiatric problem, suicidal ideation and patient brought in by ambulance from home. Patient has a history of schizophrenia and had a change in her medications from Seroquel to Zyprexa two weeks ago. Patient states over the last 2-3 days she has been hearing increasing voices. Tonight they told her to hurt herself in her kids. She states she thought about hurting herself and thought about cutting herself but there was nothing sharp enough to do this with so she did not try. She denies any overdose. No other complaints. CHART REVIEW Rebecca is a 54-year-old female placed on a 1799 for SI at [facility]. client was awake and alert. She was orientated x4. Client describes her current mood as scared. Mood appeared anxious with congruent affect. Recall was immediate. Client reports that she had a medication change two weeks ago and her mental health struggles have increased since then. She shares that she has been hearing voices for several days and that they have increased in severity. She states that they have been telling her to kill herself. She shares that she was planning this morning and would have cut her wrist but was unable to find a knife. She states that she also consider an intentional overdose but that the program she is in [employer] hose her medication and distributes them as directed. Client reports that she was discharged from the hospital a few weeks ago around 0 07/12/2024. She shares that she was doing okay but thinks the medication change was too much for her. Client is unable to plan for safety currently. Client reported to access at last discharge but did not follow through with comprehensive assessment or connection for Community Services. Patient is a short obese female. She has shoulder length brown graying hair. She appears a bit disheveled. Did okay all day until after she took a shower. The voices started in again. Tried to deal with it on her own. Just took the seroquel and finally calm it down. Wondering about Zoloft. Wanted a little bit of Abilify. Little bit depression. 'not bad.' 'enough to ask for help.' Anxiety increased when having the voices. Fight through the shower. Difficult to take a shower. Voices are more on her image today more than anything. Telling her bad things about herself. No VH. Sleep is good. 'really good. Last BM hasn't had one in 3d. Mental Status MENTAL STATUS EXAM APPEARANCE: Disheveled SPEECH: Circumstantial, EYE CONTACT: Fair AFFECT: Flat MOOD: Depressed ORIENTATION IMPAIRMENT: None MEMORY IMPAIRMENT: None HALLUCINATIONS: Denies SUICIDALITY: IDEATION, PLAN DELUSIONS: Denies BEHAVIOR: Calm and Cooperative JUDGMENT: Poor INSIGHT: Poor Results Of any Diagn. Testing TRIGLYCERIDES 235 CHOLESTEROL 262 LDL 181 HDL 31 SODIUM 138 POTASSIUM 3.4 CHLORIDE 111 ANION GAP 9 CALCIUM 9.4 ALT 31 AST 18 TSH 5.54 RECHECKED WBC 6.72 RBC 4.33 HGB 12.8 HCT 38.3 PLATELET COUNT 228 Treatment We will add a low dose Abilify in the AM to see if we can be proactive with the voices rather than reactive with the PRN Seroquel. She would like to take it in the AM. Will try that, if makes her tired, can take at night. We will also recheck her TSH since her last TSH was 5.54 upon admission. This could have been a reactive process, but could also need medication adjustment. ADD Abilify 5mg daily Seroquel 50mg one po bid PRN psychosis or agitation CLONIDINE 0.1 MG P.O. Q.A.M. CLONIDINE 0.2 MG P.O. Q.H.S. ZOLOFT 200 MG P.O. DAILY SEROQUEL 250 MG P.O. Q.H.S. GABAPENTIN 600 MG P.O. Q.H.S. MEDICAL: Elevated TSH-- recheck Monitoring by Staff, Milieu, Group, and Individual counseling as needed -- According to the [place] Suicide Assessment the above named patient is on Q15 MINUTE CHECKS. VOL--DTS-- We are still titrating medications to an effective dose while maintaining a therapeutic environment to prevent decompensation and readmission. 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
[2024-08-28] MEDS: magnesium citrate 296ml oral solution PO ONE (16:33)
[2024-08-28 20:00] VITALS: BP 132/79; PULSE 86; RESP 18; TEMP 97.4; O2SAT 94
[2024-08-28 22:35] VITALS: RESP 18; O2SAT 94
[2024-08-29 07:00] VITALS: RESP 16; O2SAT 93
[2024-08-29 08:00] VITALS: BP 126/86; PULSE 90; RESP 16; TEMP 96.8; O2SAT 93
[2024-08-29] MEDS: aripiprazole 5mg tablet PO SCH (08:31)
--- NOTE | 2024-08-29 11:44 | PROGRESS NOTE ---
Progress Note Dictate Providers to CC ~ Central Line/PICC still needed: N\\A Antibiotic Ordered?: No MRSA Education MRSA Education Provided to pt: No Objective Vitals Vital Signs Date Time Temp Pulse Resp B/P (MAP) Pulse Ox O2 Delivery O2 Flow Rate FiO2 08/29/24 08:00 96.8 90 16 126/86 (99) 93 Room Air Lab Results: 08/27/24 1448 08/27/24 1448 Problem\\Assessment\\Plan Problems/Diagnosis: (1) Major depression, chronic (2) Bipolar disorder with moderate depression (3) Suicidal ideation (4) Anxiety Psychiatrist's Progress Note Date of Service: Aug 29, 2024 Notes CHART REVIEW Rebecca is a 54-year-old female placed on a 1799 for SI at [facility]. client was awake and alert. She was orientated x4. Client describes her current mood as scared. Mood appeared anxious with congruent affect. Recall was immediate. Client reports that she had a medication change two weeks ago and her mental health struggles have increased since then. She shares that she has been hearing voices for several days and that they have increased in severity. She states that they have been telling her to kill herself. She shares that she was planning this morning and would have cut her wrist but was unable to find a knife. She states that she also consider an intentional overdose but that the program she is in [employer] [facility] hose her medication and distributes them as directed. Client reports that she was discharged from the hospital a few weeks ago around 0 07/12/2024. She shares that she was doing okay but thinks the medication change was too much for her. Client is unable to plan for safety currently. Client reported to access at last discharge but did not follow through with comprehensive assessment or connection for Community Services. ASSESSMENT The patient was interviewed in observation room. The patient was actively sitting in rec room. The patient endorses "I am good today." Patient endorses no worsening mental health symptoms. Denies SI. Denies HI. Denies VH. Patient endorses adequate sleep and food intake. The patient is stable no acute distress noted. The patient is cooperative, calm, and engaged during session. Per staff report the patient is medication compliant. Per staff report patient participating in group/unit activities. Will continue daily assessment and adjusting treatment as needed. Closely monitor behavior and response to medication during hospitalization. Results Of any Diagn. Testing REVIEW OF LABS TRIGLYCERIDES 235 CHOLESTEROL 262 LDL 181 HDL 31 SODIUM 138 POTASSIUM 3.4 CHLORIDE 111 ANION GAP 9 CALCIUM 9.4 ALT 31 AST 18 TSH 5.54 WBC 6.72 RBC 4.33 HGB 12.8 HCT 38.3 PLATELET COUNT 228 Appearnace: Disheveled Speech: Other (CIRCUMSTANTIAL) Eye Contact: Other (INTERMITTENT) Motor Activity: Normal Affect: Full Orientation Impairment: None Memory Impairment: None Attention: Normal Hallucinations: None Other: None Suicidality: None Homicidality: None Delusions: None Behavior: Cooperative Insight: Poor Judgment: Poor Treatment CLONIDINE 0.1 MG P.O. Q.A.M. CLONIDINE 0.2 MG P.O. Q.H.S. ZOLOFT 200 MG P.O. DAILY SEROQUEL 250 MG P.O. Q.H.S. GABAPENTIN 600 MG P.O. Q.H.S. ABILIFY 5MG PO DAILY Monitoring by Staff, Milieu, Group, and Individual counseling as needed -- According to the [place] Suicide Assessment the above named patient is on Q15 MINUTE CHECKS. VOLUNTARY REVIEW OF Clinical notes [X ] RN notes [X] PCT documentation [X] SW notes Labs [ X] Medications [X] Care trends/care activity [X] Vitals [X] DISCUSSION WITH rn licensed practical [X] Staff SW [X] Treatment Team [X] Discharge UNSURE AT THIS TIME. DISCHARGE HOME ONCE STABLE. CODING VISIT-PSYCHIATRY Date of Service: Aug 29, 2024 Billing Provider: EDWIN STRINGER APRN Psych Common Visit Codes: [id number] INP/OBS CARE(Mod) EDWIN STRINGER APRN Aug 29, 2024 11:44
[2024-08-29] MEDS: magnesium hydroxide 30ml (MOM) UD suspension PO PRN (14:52)
--- NOTE | 2024-08-29 18:31 | PROGRESS NOTE ---
Daily Progress Note Providers to CC ~ Antibiotic Timeout Antibiotic Ordered?: No Subjective Patient was seen in presence of mental health nursing staff today. Patient denies any concerns , ambulating well. As per patient she got milk of magnesium for constipation not pass the stools yet Objective Vital Signs Date Time Temp Pulse Resp B/P (MAP) Pulse Ox O2 Delivery O2 Flow Rate FiO2 08/29/24 08:00 96.8 90 16 126/86 (99) 93 Room Air Result Diagram: 08/27/24 1448 08/27/24 1448 General-patient not in any acute distress, alert awake ,obese, age-appropriate, looks comfortable HEENT-atraumatic normocephalic, neck supple without elevated JVD, no thyromegaly or carotid bruit. No lymphadenopathy bilaterally. Eyes-no icterus or pallor seen in eyes Chest-clear to auscultation bilaterally, breathing nonlabored no tachypnea, no wheezing, no crepitation, no crackles. Heart-S1-S2 normal, regular heart rate no murmur Abdomen bowel sounds positive on auscultation, soft nondistended nontender no guarding, no rigidity Skin no active skin rash, dry cracked heels Neurology-grossly intact, nonfocal alert awake Extremity- no pedal edema able to move all 4 extremities Psychiatry - patient is not confused or agitated cooperated during physical examination Problem\Assessment\Plan Assessment Chronic schizophrenia in exacerbation Chronic bipolar disorder in exacerbation Chronic major depression in exacerbation Suicidal ideation secondary to all of the above Morbid obesity BMI 44 Hypertension fair control Obstructive sleep apnea history of GERD, ex-smoker, prediabetes, restless leg syndrome Dyslipidemia Hypothyroidism fair control Plan Psychiatric conditions treatment per Psychiatric team Nutrition consult Started on statins Additional lab work pending Respiratory therapy consult control blood pressure T4 pending I reconciled home medications DVT gastropathy prophylaxis addressed Hospitalist team we will follow the patient per protocol Date of Service: Aug 29, 2024 Billing Provider: KATE ALATORRE MD Common Visit Codes: [id number] INP/OBS CARE(LOW) KATE ALATORRE MD Aug 29, 2024 18:31
[2024-08-29 19:34] VITALS: RESP 18; O2SAT 95
[2024-08-29 19:37] VITALS: BP 159/88; PULSE 110; RESP 18; TEMP 97.8; O2SAT 95
[2024-08-30 07:00] VITALS: RESP 16; O2SAT 92
[2024-08-30 08:00] VITALS: BP 115/75; PULSE 86; RESP 16; TEMP 97.2; O2SAT 92
--- NOTE | 2024-08-30 12:38 | PROGRESS NOTE ---
Progress Note Dictate Providers to CC ~ Central Line/PICC still needed: N\\A Antibiotic Ordered?: No MRSA Education MRSA Education Provided to pt: No Objective Vitals Vital Signs Date Time Temp Pulse Resp B/P (MAP) Pulse Ox O2 Delivery O2 Flow Rate FiO2 08/30/24 08:00 97.2 86 16 115/75 (88) 92 Room Air Lab Results: 08/27/24 1448 08/27/24 1448 Problem\\Assessment\\Plan Problems/Diagnosis: (1) Major depression, chronic (2) Bipolar disorder with moderate depression (3) Suicidal ideation (4) Anxiety Psychiatrist's Progress Note Date of Service: Aug 30, 2024 Notes CHART REVIEW Rebecca is a 54-year-old female placed on a 1799 for SI at [facility]. client was awake and alert. She was orientated x4. Client describes her current mood as scared. Mood appeared anxious with congruent affect. Recall was immediate. Client reports that she had a medication change two weeks ago and her mental health struggles have increased since then. She shares that she has been hearing voices for several days and that they have increased in severity. She states that they have been telling her to kill herself. She shares that she was planning this morning and would have cut her wrist but was unable to find a knife. She states that she also consider an intentional overdose but that the program she is in [employer] hose her medication and distributes them as directed. Client reports that she was discharged from the hospital a few weeks ago around 0 07/12/2024. She shares that she was doing okay but thinks the medication change was too much for her. Client is unable to plan for safety currently. Client reported to access at last discharge but did not follow through with comprehensive assessment or connection for Community Services. ASSESSMENT The patient was interviewed in observation room. The patient was actively sitting in rec room. The patient endorses "I'm good." I was stressing about where I was going to go but [facility] accepted me." Patient endorses no worsening mental health symptoms. Denies SI. Denies HI. Denies VH. Patient endorses adequate sleep and food intake. The patient is stable no acute distress noted. The patient is cooperative, calm, and engaged during session. The patient was smiling and laughing during session. Per staff report the patient is medication compliant. Per staff report patient participating in group/unit activities. Will continue daily assessment and adjusting treatment as needed. Closely monitor behavior and response to medication during hospitalization. Results Of any Diagn. Testing REVIEW OF LABS TRIGLYCERIDES 235 CHOLESTEROL 262 LDL 181 HDL 31 SODIUM 138 POTASSIUM 3.4 CHLORIDE 111 ANION GAP 9 CALCIUM 9.4 ALT 31 AST 18 TSH 5.54 WBC 6.72 RBC 4.33 HGB 12.8 HCT 38.3 PLATELET COUNT 228 Appearnace: Other Speech: Other (CIRCUMSTANTIAL) Eye Contact: Normal Motor Activity: Normal Affect: Full Orientation Impairment: None Memory Impairment: None Attention: Normal Hallucinations: None Other: None Suicidality: None Homicidality: None Delusions: None Behavior: Cooperative Insight: Fair Judgment: Fair Treatment CLONIDINE 0.1 MG P.O. Q.A.M. CLONIDINE 0.2 MG P.O. Q.H.S. ZOLOFT 200 MG P.O. DAILY SEROQUEL 250 MG P.O. Q.H.S. GABAPENTIN 600 MG P.O. Q.H.S. ABILIFY 5MG PO DAILY Monitoring by Staff, Milieu, Group, and Individual counseling as needed -- According to the [place] Suicide Assessment the above named patient is on Q15 MINUTE CHECKS. VOLUNTARY REVIEW OF Clinical notes [X ] RN notes [X] PCT documentation [X] SW notes Labs [ X] Medications [X] Care trends/care activity [X] Vitals [X] DISCUSSION WITH private pilot [X] Staff SW [X] Treatment Team [X] Discharge UNSURE AT THIS TIME. DISCHARGE HOME ONCE STABLE. CODING VISIT-PSYCHIATRY Date of Service: Aug 30, 2024 Billing Provider: EDWIN STRINGER APRN Psych Common Visit Codes: [id number] INP/OBS CARE(Mod) EDWIN STRINGER APRN Aug 30, 2024 12:38
[2024-08-30 20:00] VITALS: BP 113/77; PULSE 83; RESP 16; TEMP 97.2; O2SAT 92
[2024-08-30 20:41] VITALS: RESP 16; O2SAT 92
[2024-08-31 07:00] VITALS: RESP 16; O2SAT 91
[2024-08-31 08:00] VITALS: BP 141/93; PULSE 97; RESP 16; TEMP 97.8; O2SAT 91
--- NOTE | 2024-08-31 09:54 | PROGRESS NOTE ---
Progress Note Dictate Providers to CC ~ Central Line/PICC still needed: N\\A Antibiotic Ordered?: No MRSA Education MRSA Education Provided to pt: No Objective Vitals Vital Signs Date Time Temp Pulse Resp B/P (MAP) Pulse Ox O2 Delivery O2 Flow Rate FiO2 08/31/24 08:00 97.8 97 16 141/93 (109) 91 Room Air Lab Results: 08/27/24 1448 08/27/24 1448 Problem\\Assessment\\Plan Problems/Diagnosis: (1) Major depression, chronic (2) Bipolar disorder with moderate depression (3) Suicidal ideation (4) Anxiety Psychiatrist's Progress Note Date of Service: Aug 31, 2024 Notes CHART REVIEW Rebecca is a 54-year-old female placed on a 1799 for SI at [facility]. client was awake and alert. She was orientated x4. Client describes her current mood as scared. Mood appeared anxious with congruent affect. Recall was immediate. Client reports that she had a medication change two weeks ago and her mental health struggles have increased since then. She shares that she has been hearing voices for several days and that they have increased in severity. She states that they have been telling her to kill herself. She shares that she was planning this morning and would have cut her wrist but was unable to find a knife. She states that she also consider an intentional overdose but that the program she is in [employer] life discovery project hose her medication and distributes them as directed. Client reports that she was discharged from the hospital a few weeks ago around 0 07/12/2024. She shares that she was doing okay but thinks the medication change was too much for her. Client is unable to plan for safety currently. Client reported to access at last discharge but did not follow through with comprehensive assessment or connection for Community Services. ASSESSMENT The patient was interviewed in observation room. The patient was actively resting in bed with eyes closed. The patient endorses "Good." Patient endorses no worsening mental health symptoms. Denies SI. Denies HI. Denies VH. Patient endorses adequate sleep and food intake. The patient is stable no acute distress noted. The patient is cooperative, calm, and engaged during session. The patient was smiling and laughing during session. Per staff report the patient is medication compliant. Per staff report patient participating in group/unit activities. Will continue daily assessment and adjusting treatment as needed. Closely monitor behavior and response to medication during hospitalization. Results Of any Diagn. Testing REVIEW OF LABS TRIGLYCERIDES 235 CHOLESTEROL 262 LDL 181 HDL 31 SODIUM 138 POTASSIUM 3.4 CHLORIDE 111 ANION GAP 9 CALCIUM 9.4 ALT 31 AST 18 TSH 5.54 WBC 6.72 RBC 4.33 HGB 12.8 HCT 38.3 PLATELET COUNT 228 Speech: Other (CIRCUMSTANTIAL) Eye Contact: Normal Motor Activity: Normal Affect: Full Mood: Euthymic Orientation Impairment: None Memory Impairment: None Attention: Normal Hallucinations: None Other: None Suicidality: None Homicidality: None Delusions: None Behavior: Cooperative Insight: Fair Judgment: Fair Treatment CLONIDINE 0.1 MG P.O. Q.A.M. CLONIDINE 0.2 MG P.O. Q.H.S. ZOLOFT 200 MG P.O. DAILY SEROQUEL 250 MG P.O. Q.H.S. GABAPENTIN 600 MG P.O. Q.H.S. ABILIFY 5MG PO DAILY Monitoring by Staff, Milieu, Group, and Individual counseling as needed -- According to the [place] Suicide Assessment the above named patient is on Q15 MINUTE CHECKS. VOLUNTARY REVIEW OF Clinical notes [X ] RN notes [X] PCT documentation [X] SW notes Labs [ X] Medications [X] Care trends/care activity [X] Vitals [X] DISCUSSION WITH rf engineer [X] Staff SW [X] Treatment Team [X] Discharge UNSURE AT THIS TIME. DISCHARGE HOME ONCE STABLE. CODING VISIT-PSYCHIATRY Date of Service: Aug 31, 2024 Billing Provider: EDWIN STRINGER APRN Psych Common Visit Codes: [id number] INP/OBS CARE(Low) EDWIN STRINGER APRN Aug 31, 2024 09:54
[2024-08-31 19:00] VITALS: RESP 14; O2SAT 92
[2024-08-31 20:00] VITALS: BP 99/58; PULSE 81; RESP 14; TEMP 96.8; O2SAT 92
[2024-08-31] MEDS: ondansetron 4mg rapidly disintigrating tab PO PRN (20:05)
--- NOTE | 2024-08-31 21:12 | PROGRESS NOTE- Residence ---
Progress Note - Resident Providers to CC Resident Creating Document: RONAK MAR RES ~ Antibiotic Timeout Antibiotic Ordered?: No Subjective Patient was seen in the [facility] unit without having any special medical complaints for today. Objective Vital Signs Date Time Temp Pulse Resp B/P (MAP) Pulse Ox O2 Delivery O2 Flow Rate FiO2 08/31/24 19:00 14 92 Room Air 08/31/24 08:00 97.8 97 141/93 (109) Result Diagram: 08/27/24 1448 08/27/24 1448 Vitals were stable at the moment. General: Well alert, well oriented, not confused, not agitated, not in acute distress, well cooperated during the physical. HEENT: Conjunctive are pink, sclerae clear, no icterus, pupil is equal in both sides, reactive to light, no ear discharge, no pharyngeal erythema or an edema, mouth and lips are moist. Neck: Supple, no JVD, no lymphadenopathy and thyromegaly. Lungs:Equal air entry on both lungs, no additional sounds Heart: S1-S2 regular sinus rhythm and, regular rate, no gallops, no rubs, no murmurs Abdomen: No visible peristalsis, Bowel sounds present on auscultation, soft, nontender, no guarding, no rigidity Extremities: No obvious deformities, no pitting edema bilaterally, capillary refill intact, able to wiggle toes both sides, peripheral pulsations are intact on both sides DIRECTOR ATHLETIC: No focal neurological deficits, no motor and sensory weakness in all 4 extremities, could move all 4 extremities Musculoskeletal: No joint swelling, deformities, inflammations, and no scoliosis and back tenderness Skin: No active skin lesions and rashes Assessment Assessment Chronic schizophrenia in exacerbation Chronic bipolar disorder in exacerbation Chronic major depression in exacerbation Suicidal ideation secondary to all of the above Morbid obesity BMI 44 Hypertension fair control Obstructive sleep apnea history of GERD, ex-smoker, prediabetes, restless leg syndrome Dyslipidemia Hypothyroidism fair control Plan Plan Chronic schizophrenia in exacerbation #Chronic bipolar disorder in exacerbation #Chronic major depression in exacerbation #Suicidal ideation secondary to all of the above -continue with psychiatric management #Morbid obesity BMI 44 #Hypertension fair control #Obstructive sleep apnea history of GERD, ex-smoker, prediabetes, restless leg syndrome #Dyslipidemia #Hypothyroidism fair control -continue statin medications, monitor side effects including muscle fatigue and cramp, liver enzymes elevation and RAC pain -nutrition and respiratory therapy consultation, appreciate for -control blood pressure -continue medications appropriately -DVT prophylaxis -TSH two with a normal, TG 235, LDL 181, continue statin medications Disposition: Continue psychiatric management in [facility], appreciate for letting us involved in the patient's care, hospitalist teams are welcome to medical consultation during hospitalization. Resident MD attestation: Patient was seen and examined with attending MD, Dr. Johnathan MAR MD Internal Medicine Resident, PGY2 [facility] Date of Service: Aug 31, 2024 Billing Provider: PANDA WAGNER MD Common Visit Codes: [id number] INP/OBS CARE(MOD) RNOAK MAR, RES Aug 31, 2024 21:12 PANDA WAGNER MD Aug 31, 2024 21:33
[2024-09-01 07:00] VITALS: RESP 16; O2SAT 91
[2024-09-01] MEDS: acetaminophen 325mg tablet PO PRN (07:21)
[2024-09-01 08:00] VITALS: BP 124/85; PULSE 94; RESP 16; TEMP 96; O2SAT 91
--- NOTE | 2024-09-01 13:38 | PROGRESS NOTE ---
Progress Note Dictate Providers to CC ~ Central Line/PICC still needed: N\\A Antibiotic Ordered?: No MRSA Education MRSA Education Provided to pt: No Objective Vitals Vital Signs Date Time Temp Pulse Resp B/P (MAP) Pulse Ox O2 Delivery O2 Flow Rate FiO2 09/01/24 08:00 96.0 94 16 124/85 (98) 91 Room Air Problem\\Assessment\\Plan Problems/Diagnosis: (1) Major depression, chronic (2) Bipolar disorder with moderate depression (3) Suicidal ideation (4) Anxiety Psychiatrist's Progress Note Date of Service: September 01, 2024 Notes CHART REVIEW Rebecca is a 54-year-old female placed on a 1799 for SI at [facility]. client was awake and alert. She was orientated x4. Client describes her current mood as scared. Mood appeared anxious with congruent affect. Recall was immediate. Client reports that she had a medication change two weeks ago and her mental health struggles have increased since then. She shares that she has been hearing voices for several days and that they have increased in severity. She states that they have been telling her to kill herself. She shares that she was planning this morning and would have cut her wrist but was unable to find a knife. She states that she also consider an intentional overdose but that the program she is in [employer] hose her medication and distributes them as directed. Client reports that she was discharged from the hospital a few weeks ago around 0 07/12/2024. She shares that she was doing okay but thinks the medication change was too much for her. Client is unable to plan for safety currently. Client reported to access at last discharge but did not follow through with comprehensive assessment or connection for Community Services. ASSESSMENT The patient was interviewed in observation room. The patient was actively resting in bed with eyes closed. The patient endorses "I am doing good." "I was accepted to [facility] do you know my discharge date? Will follow up with for bed availability at [facility]. Patient endorses no worsening mental health symptoms. Denies SI. Denies HI. Denies VH. Patient endorses adequate sleep and food intake. The patient is stable no acute distress noted. The patient is cooperative, calm, and engaged during session. Per staff report the patient is medication compliant. Per staff report patient participating in group/unit activities. Will continue daily assessment and adjusting treatment as needed. Closely monitor behavior and response to medication during hospitalization. Results Of any Diagn. Testing REVIEW OF LABS TRIGLYCERIDES 235 CHOLESTEROL 262 LDL 181 HDL 31 SODIUM 138 POTASSIUM 3.4 CHLORIDE 111 ANION GAP 9 CALCIUM 9.4 ALT 31 AST 18 TSH 5.54 WBC 6.72 RBC 4.33 HGB 12.8 HCT 38.3 PLATELET COUNT 228 Appearnace: Other (CIRCUMSTANTIAL) Speech: Normal Eye Contact: Normal Motor Activity: Normal Affect: Full Mood: Euthymic Orientation Impairment: None Memory Impairment: None Attention: Normal Hallucinations: None Other: None Suicidality: None Homicidality: None Delusions: None Behavior: Cooperative Insight: Fair Judgment: Fair Treatment CLONIDINE 0.1 MG P.O. Q.A.M. CLONIDINE 0.2 MG P.O. Q.H.S. ZOLOFT 200 MG P.O. DAILY SEROQUEL 250 MG P.O. Q.H.S. GABAPENTIN 600 MG P.O. Q.H.S. ABILIFY 5MG PO DAILY Monitoring by Staff, Milieu, Group, and Individual counseling as needed -- According to the [place] Suicide Assessment the above named patient is on Q15 MINUTE CHECKS. VOLUNTARY REVIEW OF Clinical notes [X ] RN notes [X] PCT documentation [X] SW notes Labs [ X] Medications [X] Care trends/care activity [X] Vitals [X] DISCUSSION WITH manager monitoring [X] Staff SW [X] Treatment Team [X] Discharge UNSURE AT THIS TIME. DISCHARGE HOME ONCE STABLE. CODING VISIT-PSYCHIATRY Date of Service: September 01, 2024 Billing Provider: EDWIN STRINGER APRN Psych Common Visit Codes: [id number] INP/OBS CARE(Low) EDWIN STRINGER APRN September 01, 2024 13:38
[2024-09-01] MEDS ORDERED: HYDR25TA4 PO (15:41)
[2024-09-01] MEDS ORDERED: PANT-47 PO (15:41)
[2024-09-01] MEDS ORDERED: ARIP5TAB53 PO (15:41)
[2024-09-01] MEDS ORDERED: GABA-1405 PO (15:41)
[2024-09-01] MEDS ORDERED: SERT100T PO (15:41)
[2024-09-01] MEDS ORDERED: TRAZ-251 PO (15:41)
[2024-09-01] MEDS ORDERED: CLON0.1T2 PO (15:41)
[2024-09-01] MEDS ORDERED: QUET100T34 PO (15:48)
[2024-09-01 19:00] VITALS: RESP 16; O2SAT 90
[2024-09-01 20:00] VITALS: BP 134/83; PULSE 78; RESP 16; TEMP 97; O2SAT 90
--- NOTE | 2024-09-02 07:26 | DISCHARGE SUMMARY ---
Discharge Summary Providers to CC ~ Discharge Summary Admission Diagnosis: BIPOLAR DISORDER WITH MODERATE DEPRESSION. SUICIDAL IDEATION. PSYCHOSIS. Hospital Course DATE OF ADMISSION: DATE OF DISCHARGE: Discharge Diagnosis\\Comment: BIPOLAR DISORDER WITH MODERATE DEPRESSION SUICIDAL IDEATION PSYCHOSIS Operations\\Procedures: NONE Consultants: MEDICAL TEAM Complications: NONE Condition on DC: Stable 2 or more antipsychotic used: Yes 2/more antipsychotic addressed: Yes Does Patient smoke: No Smoking education given.: No New Medications: Aripiprazole (Aripiprazole) 5 Mg Tablet 5 MG PO DAILY for 30 Days, #30 TAB Clonidine HCl (Clonidine HCl) 0.1 Mg Tablet 0.2 MG PO HS for 30 Days, #90 TAB CLONIDINE HCL 0.1 MG ONE TABLET P.O. DAILY Hydrochlorothiazide (Hydrochlorothiazide) 25 Mg Tablet 25 MG PO DAILY for 30 Days, #30 TAB Hydroxyzine Hcl* (Atarax*) 25 Mg Tablet 50 MG PO Q6H PRN for for anxiety/agitation for 30 Days, #120 TAB Levothyroxine Sodium (Levothyroxine Sodium) 100 Mcg Tablet 100 MCG PO DAILY@0700 for 30 Days, #30 TAB [pramipexole DI-HCl tablet] () 0.25 MG TABLET 0.25 MG PO HS for 30 Days, #30 Quetiapine Fumarate (Quetiapine Fumarate) 100 Mg Tablet 250 MG PO HS for 30 Days, #90 TAB Continued Medications: Clonidine HCl (Clonidine HCl) 0.1 Mg Tablet 1 TAB PO DAILY, TAB Gabapentin (Gabapentin) 600 Mg Tablet 1 TAB PO HS for 30 Days, #30 TAB (This prescription has been renewed) Pantoprazole Sodium (PROTONIX tablet) 40 Mg Tablet.dr 40 MG PO HS for 30 Days, #30 TAB.SR (This prescription has been renewed) Sertraline Hcl (Zoloft) 100 Mg Tablet 200 MG PO DAILY for 30 Days, #60 TAB (This prescription has been renewed) Trazodone HCl (Trazodone HCl) 50 Mg Tablet 3 TAB PO HS for 30 Days, #90 TAB (This prescription has been renewed) Discontinued Medications: Clonidine Hcl (Clonidine Hcl) 0.2 Mg Tablet 1 TAB PO HS, TAB Hydroxyzine Hcl* (Atarax*) 25 Mg Tablet 2 TAB PO Q6H PRN for for anxiety/agitation, TAB Levothyroxine Sodium (Synthroid) 100 Mcg Tablet 1 TAB PO DAILY, TAB [pramidexole Dl-HCL] () 0.25 MG PO HS Quetiapine Fumarate (Seroquel) 50 Mg Tablet 3 TAB PO HS, TAB Discharge Summary: CHART REVIEW Rebecca is a 54-year-old female placed on a 1799 for SI at [facility] ED. client was awake and alert. She was orientated x4. Client describes her current mood as scared. Mood appeared anxious with congruent affect. Recall was immediate. Client reports that she had a medication change two weeks ago and her mental health struggles have increased since then. She shares that she has been hearing voices for several days and that they have increased in severity. She states that they have been telling her to kill herself. She shares that she was planning this morning and would have cut her wrist but was unable to find a knife. She states that she also consider an intentional overdose but that the program she is in [employer] hose her medication and distributes them as directed. Client reports that she was discharged from the hospital a few weeks ago around 0 07/12/2024. She shares that she was doing okay but thinks the medication change was too much for her. Client is unable to plan for safety currently. Client reported to access at last discharge but did not follow through with comprehensive assessment or connection for Community Services. Patient actively seen and examined on day of discharge 09/02/2024, by myself, FAROOQ Bergeron. The patient is interviewed in observation room. The patient endorses "Good." Denies SI. Denies HI. Denies AVH. Rebecca was able to formulate a safety plan which includes going to the emergency room if symptoms return or worsen. Call [phone] or [phone] for immediate assistance if necessary. During his hospital stay, Rebecca receive multidisciplinary treatment he adhered to his medication regimen and has been pleasant and cooperative. She denies any suicidal ideation (SI), homicidal ideation (HI), auditory/visual hallucination (HI). Staff has reported no behavioral issues, and the patient has been sleeping well, adequate food intake, with no mood or behavioral changes noted. The decision to discharge Rebecca was made in consensus with the treatment team, including the social welfare clerk, crude unit operator, and supercharge repair supervisor on duty. The patient was discharged with a 30 day supply of medication. MENTAL STATUS EXAM APPEARANCE: APPROPRIATELY. DRESSED IN STREET CLOTHING. SPEECH: CIRCUMSTANCE EYE CONTACT: NORMAL AFFECT: CONGRUENT WITH MOOD MOOD: "GOOD" ORIENTATION IMPAIRMENT: NONE MEMORY IMPAIRMENT: NONE ATTENTION: NORMAL HALLUCINATIONS: NONE SUICIDALITY: NONE HOMICIDALITY: NONE DELUSIONS: NONE BEHAVIOR: COOPERATIVE, PLEASANT JUDGMENT: FAIR INSIGHT: FAIR Continue Current Inpatient Psychotropic Regimen @ home Follow-Up with Psychiatric Provider Safety Plan Discussed DISCHARGE CONDITION: Her readiness for discharge is supported by his stable mental status, adherence to treatment, and proactive approach to managing his mental health. Denies SI. Denies HI. Denies A/V/H. The patient has been informed to continue follow-up care to ensure ongoing support and monitoring. Patient discharged to [facility]. *Problems/Diagnosis: (1) Bipolar disorder with moderate depression (2) Suicidal ideation (3) Psychosis Total Time Spent on D/C: > 30 Minutes CODING VISIT-PSYCHIATRY Date of Service: September 02, 2024 Billing Provider: EDWIN STRINGER APRN Psych Common Visit Codes: 17395-AYK/OBS DISCH DAY >30min Problem Qualifiers (1) Psychosis: EDWIN STRINGER APRN September 02, 2024 07:25
[2024-09-02 07:30] VITALS: BP 140/88; PULSE 89; RESP 20; TEMP 96.2; O2SAT 92
[2024-09-02 07:45] VITALS: RESP 20; O2SAT 92
--- NOTE | 2024-09-02 10:29 | RADIOLOGY REPORT ---
CHEST RADIOGRAPH Indication: R/O TB Technique: Single frontal view of the chest was obtained Comparison: DI CHEST,SINGLE VIEW on DOS: 07/13/24 FINDINGS: Lines and Tubes: None Lungs: No focal consolidation. Pleura: No effusion. No pneumothorax. Cardiomediastinal contours: Unremarkable Bones: No acute osseous abnormality. IMPRESSION: No acute cardiopulmonary disease. No evidence of TB
== END 2024-09-02 12:15 | DRG 753 ==
LOC: ADULT MH 14:50 → UNDOADMIN 14:50 → ADULT MH 16:45
PROVIDERS: ADMIT Psychiatry & Neurology Psychiatry; ATTEND Psychiatry & Neurology Psychiatry
PROC: GZHZZZZ Group Psychotherapy (ICD-10-PCS; principal; 2024-08-23)
PROC: GZ51ZZZ Individual Psychotherapy, Behavioral (ICD-10-PCS; 2024-08-23)
DX: F31.32 Bipolar disorder, current episode depressed, moderate (principal); R45.851 Suicidal ideations; F29 Unspecified psychosis not due to a substance or known physiological condition; F41.9 Anxiety disorder, unspecified; E03.9 Hypothyroidism, unspecified; E78.5 Hyperlipidemia, unspecified; Z20.822 Contact with and (suspected) exposure to COVID-19; E66.01 Morbid (severe) obesity due to excess calories; F43.10 Post-traumatic stress disorder, unspecified; F20.9 Schizophrenia, unspecified; K21.9 Gastro-esophageal reflux disease without esophagitis; R73.03 Prediabetes; G47.33 Obstructive sleep apnea (adult) (pediatric); I10 Essential (primary) hypertension; G25.81 Restless legs syndrome; Z87.891 Personal history of nicotine dependence; Z68.41 Body mass index [BMI] 40.0-44.9, adult
CPT/HCPCS: 36415; 71045; 80053; 80061; 81003; 84443; 85025; 87081; 87811; 99285; A6250; Q0177

== ENCOUNTER 2024-11-13 06:49 | Emergency (ER) | payer MEDICAID ==
[~2024-11-13] VITALS: Ht 165.1 cm; Wt 117.0 kg
[~2024-11-13 06:49] MED LIST changes: +ARIP15TA68 PO; +ATOR20TA66 PO; +CLON0.1T PO; +GABA-1405 PO; -HYDR-3686 PO; +HYDR25TA5 PO; +HYDR50TA65 PO; +PRAM0.258 PO; -PRAMIPEXOLE DI HCL PO; -QUET25TA36 PO; +QUET300T20 PO; +SYN0.088T PO; -TRAZ-251 PO; +TRAZ-256 PO; -gabapentin capsule PO
[2024-11-13 07:28] VITALS: TEMP 97.5
--- NOTE | 2024-11-13 08:06 | Physician Documentation ---
History of Present Illness ~ Chief Complaint: Back Pain Stated Complaint: BACK PAIN Time Seen by MD: 07:33 HPI 54-year-old female presenting with acute onset back pain that happened yesterday. She states that she was carrying something and went to set it down when she had sudden sharp pain in her lower back. She had to stop what she was doing immediately. Since then she has been unable to move very much. She has been for the most part in bed. Any attempts at movement or walking caused severe pain. She took some Tylenol which did not really do much for her pain. The pain is sharp and severe in bilateral. It does not radiate. Denies any numbness, tingling, bowel or bladder dysfunction, saddle anesthesia or any other associated symptoms. Medication Reconciliation Allergies: Coded Allergies: No Known Drug Allergies (Verified Allergy, Unknown, 11/13/24) Scheduled Aripiprazole (Aripiprazole), 15 MG PO HS Atorvastatin Calcium (Atorvastatin Calcium), 40 MG PO DAILY Clonidine HCl (Clonidine HCl), 1 TAB PO DAILY, (Reported) Clonidine Hcl (Clonidine Hcl), 2 TAB PO HS, (Reported) Cyclobenzaprine HCl (Cyclobenzaprine HCl), 1 TAB PO Q8H Diclofenac Sodium (Diclofenac Sodium), 1 TAB PO Q12H Gabapentin (Gabapentin), 1 TAB PO HS, (Reported) Hydrochlorothiazide (Hydrochlorothiazide), 1 TAB PO DAILY, (Reported) Hydroxyzine HCl (Hydroxyzine HCl), 1 TAB PO HS, (Reported) Levothyroxine Sodium (Levothyroxine Sodium), 100 MCG PO DAILY@0700 Levothyroxine Sodium* (Synthroid*), 1 TAB PO DAILY, (Reported) Methylprednisolone (Medrol Dosepak), 0 PO UD Pantoprazole Sodium (Pantoprazole Sodium), 1 TAB PO DAILY, (Reported) Pramipexole Di-Hcl (Pramipexole Dihydrochloride), 0.25 MG PO HS, (Reported) Quetiapine Fumarate (Quetiapine Fumarate), 1 TAB PO HS, (Reported) Sertraline HCl (Sertraline HCl), 1 CAP PO DAILY, (Reported) Trazodone HCl (Trazodone HCl), 1 TAB PO HS, (Reported) Past Medical History Past Medical History: Anxiety, Depression Patient History: FH: bipolar disorder FATHER, Onset:Unknown FH: schizophrenia FATHER, Onset:Unknown FH: suicide GRANDFATHER OR GRANDMOTHER, Onset:Unknown Review of Systems All Other Systems at this time: Reviewed and Negative Physical Exam Physical Exam Vital Signs: Temperature: 97.5, Source: Temporal, Heart Rate: 77, Respiratory Rate: 19, BP: 135/85, Pulse Oximetry: 95, Weight: 117.000 Oxygen Flow Rate: 0 Physical Exam I have reviewed the triage vitals. CONST: Well developed and well nourished. In no acute distress HENT: Head Atraumatic EYES: Pupils are equal, round and reactive to light. Normal conjunctiva NECK: Normal range of motion. Supple. CARDIO: Normal rate and regular rhythm. No murmurs, rubs, or gallops. S1, S2. PULM/CHEST: No respiratory distress. Lungs clear to auscultation. No wheeze ABD: Soft and nontender. Nondistended. Bowel sounds normal. No guarding. : Exam deferred MSK: No edema. No deformity. Lower back-exam is limited by pain, there is tenderness to palpation over the bilateral paraspinal muscles, straight leg raise is negative bilaterally, any attempts at range of motion of the lower back cause severe pain. NEURO: Alert and oriented to person, place and time. Moving all extremities SKIN: Warm and dry. PSYCH: Normal mood and affect. Good eye contact. Progress Results/Orders Results/Orders Completed Orders - EHSAN MICHELLE MD Ketorolac Trometh 15mg/Ml Vial (Toradol (11/13/24 08:05) Cyclobenzaprine Tablet (Flexeril Tablet) (11/13/24 08:05) Ketorolac Trometh 30mg/Ml Vial (Toradol (11/13/24 08:15) Acetaminophen 325mg Tablet (Tylenol Tabl (11/13/24 09:50) Vital Signs 11/13/24 11/13/24 11/13/24 11/13/24 06:52 07:28 08:22 08:24 Temp 97.5 97.5 Pulse 81 77 76 Resp 18 19 17 17 B/P (MAP) 128/100 135/85 (102) 131/84 (100) Pulse Ox 96 95 94 O2 Flow Rate 0 0 11/13/24 10:21 Pulse 79 Resp 18 B/P (MAP) 131/84 Pulse Ox 98 Medical Decision Making Differential Diagnosis 54-year-old female presenting for acute onset lower back pain likely secondary to a lumbar strain. Her history and her physical exam is consistent with this. There are no signs of any neurological compromise including no signs of any cauda equina. Patient was medicated with 60 mg of IM Toradol, 975 mg of p.o. acetaminophen and 10 mg of p.o. cyclobenzaprine with good improvement of symptoms. Patient is able to get up and walk around and states that her pain is markedly improved. Her vital signs are normal and patient looks clinically well. At this point in time patient is stable and safe for discharge home. I will prescribe her a Medrol Dosepak as well as cyclobenzaprine and diclofenac. Patient is advised to monitor her symptoms for improvement and resolution. Return to the ED with any acutely worsening symptoms. Departure Disposition: 01 HOME / SELF CARE / HOMELESS Impression: Primary Impression: Lumbar strain Condition: Improved Discharge Instructions: Lumbar Sprain Additional Instructions: Take your medications as prescribed. Monitor your symptoms for improvement and resolution. Please take the Medrol first. You may take the cyclobenzaprine/Flexeril as needed at nighttime with a Medrol. Once you are done with the Medrol than you can take the diclofenac as needed for pain. Please follow up with your primary care physician if your pain does not resolve. Return to the ED with any acutely worsening symptoms. Referrals: NO PRIMARY CARE PROVIDER (PCP) Prescriptions Diclofenac Sodium (Diclofenac Sodium) 75 Mg Tablet. 1 TAB PO Q12H for 30 Days, #60 TAB 0 Refills Prov: EHSAN MICHELLE MD 11/13/24 Cyclobenzaprine HCl (Cyclobenzaprine HCl) 10 Mg Tablet 1 TAB PO Q8H for muscle spasms for 30 Days, #90 TAB Prov: EHSAN MICHELLE MD 11/13/24 Methylprednisolone (Medrol Dosepak) 4 Mg Tab.ds.pk 0 PO UD, #21 TAB 0 Refills take 6 Pills Day 1, 5 Pills Day 2, 4 Pills Day 3, 3 Pills Day 4, 2 Pills Day 5 and 1 pill Day 6 Prov: EHSAN MICHELLE MD 11/13/24 Signature Scribe Signature: 1 Attestation: 1 EHSAN MICHELLE MD Nov 13, 2024 08:06
[2024-11-13] MEDS: ketorolac trometh 30MG/ML vial 30 MG/ML VIAL IM ONE (08:18)
[2024-11-13] MEDS: ketorolac trometh 15mg/ml vial 15 MG/ML ML IM ONE (08:22)
[2024-11-13] MEDS ORDERED: METH4TAB81 PO (09:52)
[2024-11-13] MEDS ORDERED: CYCL-394 PO (09:52)
[2024-11-13] MEDS ORDERED: DICL75TA5 PO (09:53)
[2024-11-13 10:21] VITALS: BP 131/84; PULSE 79; RESP 18; O2SAT 98
== END 2024-11-13 10:23 | disposition home or self-care (01) ==
LOC: ER 06:50
DX: S39.012A Strain of muscle, fascia and tendon of lower back, initial encounter (principal); F41.9 Anxiety disorder, unspecified; F32.A Depression, unspecified; Z79.899 Other long term (current) drug therapy; X58.XXXA Exposure to other specified factors, initial encounter; Y93.89 Activity, other specified; Y92.89 Other specified places as the place of occurrence of the external cause; Y99.8 Other external cause status
CPT/HCPCS: 96372; 99283; J1885

== ENCOUNTER 2025-01-24 08:55 | Inpatient (IN) | payer MEDICAID ==
[~2025-01-24] VITALS: Ht 157.5 cm; Wt 122.4 kg
[~2025-01-24 08:55] MED LIST changes: -ARIP15TA68 PO; +ATOR-2 PO; -ATOR20TA66 PO; -CLON0.1T PO; +CLON0.2T PO; +DIVA500T9 PO; -GABA-1405 PO; -HYDR25TA5 PO; -HYDR50TA65 PO; +LYR75C PO; -PANT40TA54 PO; -QUET300T20 PO; +QUET400T13 PO; -SERT200C PO; -SYN0.088T PO
--- NOTE | 2025-01-24 09:24 | ELECTROCARDIOGRAPH REPORT ---
[facility] Test Date: 2025-01-24 Test Time: 09:22:41 Pat Name: SUZY OSCAR Department: [facility] Patient ID: [facility]-[id number] Room: Gender: F Health Claims Examiner: : 1970 Requested By: EHSAN MICHELLE Order Number: [id number] Reading MD: Measurements Intervals [place] Rate: 89 P: 37 WI: 142 QRS: -13 QRSD: 91 T: 40 QT: 398 QTc: 485 Interpretive Statements Sinus rhythm Borderline T abnormalities, anterior leads Baseline wander in lead(s) I Please click the below link to view image of tracing.
[2025-01-24 09:38] LABS: MEAN PLATELET VOLUME 7.7 FL (7.4-10.4); RED CELL DISTRIBUTION WIDTH 15.4 % (11.5-14.5)
--- NOTE | 2025-01-24 09:41 | Physician Documentation ---
History of Present Illness ~ Chief Complaint: Confused Stated Complaint: GENERAL WEAKNESS Time Seen by MD: 09:33 Primary Medical Doctor: NONE HPI MSE: 54-year-old female that presents via EMS for complaints of general weakness cough x1 week. Reports that her cough is productive with yellow sputum. The to. Patient reports he has had several days of intermittent forgetfulness will give but appears appropriate and alert at this time. Patient reports that she is hearing things in her head but sometimes unable to express them. Patient denies any of those symptoms at this time but again does report feeling slightly short of breath and generally weak. Feels like this may have something to do with the change in her Lyrica dose that she is prescribed daily. EMS [place] negative NIH negative alert and oriented x4 GCS of 15. Patient's medical history significant for bipolar schizoaffective disorder depression and PTSD. Patient denies asthma COPD this time. HPI: 54 years old female with past medical history of substance abuse(methamphetamine quit five years ago), bipolar, hypertension, hypothyroidism, presented to the ED due to shortness of breaths, productive cough and generalized weakness which started about two days ago. She also reported recently multiple fall, not hit his head or did not lose his consciousness, she noticed his mind is foggy, forgetfulness, denied any headache lightheaded, fever chills. Patient discharged from our hospital from mental health unit with diagnosis of schizophrenia bipolar PTSD and recently they add Depakote and Lyrica to her previous medication. Medication Reconciliation Allergies: Coded Allergies: No Known Drug Allergies (Verified Allergy, Unknown, 01/12/25) Scheduled Atorvastatin Calcium (Atorvastatin Calcium), 1 TAB PO DAILY Clonidine HCl (Clonidine HCl), 1 TAB PO DAILY Clonidine HCl (Clonidine HCl), 1 TAB PO HS Divalproex Sodium (Divalproex Sodium ER), 2 TAB PO HS Levothyroxine Sodium (Levothyroxine Sodium), 100 MCG PO DAILY@07 Pramipexole Di-Hcl (Pramipexole Dihydrochloride), 1 TAB PO HS Pregabalin (LYRICA capsule), 150 MG PO BID Quetiapine Fumarate (Quetiapine Fumarate), 1 TAB PO HS Trazodone HCl (Trazodone HCl), 1 TAB PO HS Past Medical History Past Medical History: Hypertension, Anxiety, Bipolar, Depression Patient History: FH: bipolar disorder FATHER, Onset:Unknown FH: schizophrenia FATHER, Onset:Unknown FH: suicide GRANDFATHER OR GRANDMOTHER, Onset:Unknown Maternal grandfather Drug Use: other (Homeless, quit smoking methamphetamine and cigarettes five years ago) Review of Systems ROS Constitutional: No fever, dizziness, positive weakness. no change in appetite/weight HEENT: No blurring of the vision, No sore throat, epistaxis, tinnitus Cardiovascular: no chest pain/discomfort, palpitations, no syncope. No pedal edema Respiratory: Negative sob, cough,, no hemoptysis Gastrointestinal: no abdominal pain, no nausea, vomiting. no diarrhea, no constipation, melena. Genitourinary: No frquency, urgency, incontinence, nocturia. No dysuria, hematuria Musculoskeletal: No arthralgia, myalgia Endocrine: No polydipsia, polyuria. No heat or cold intolerance Neurologic: No headache, vertigo. No weakness, no numbness or tingling of extremities Psychiatric: No hallucinations/delusions, no anhedonia, no suicidal ideation\ Hematologic: No bleeding or bruises Neurological: Reports: see HPI Physical Exam Vital Signs: Temperature: 96.9, Source: Temporal, Heart Rate: 103, Respiratory Rate: 22, BP: 128/87, Pulse Oximetry: 94, Weight: 125.000 Oxygen Flow Rate: 4.0 Physical Exam General: Awake and Alert, no acute distress. HEENT: Conjunctiva pink, Sclera clear, Mucus Membranes moist. Neck: Supple without masses and tenderness. Resp: Mild wheezing no crackle Heart: Regular Rate and rhythm, normal S1 and S2 Abdomen: Soft and non tender no organomegaly Extremities: No cyanosis,clubbing or edema. Skin: Warm and Dry. Neurological: Speech is clear, alert, and oriented x 4, no gross neurological deficits Progress Results/Orders Results/Orders Orders - NADIRA MICHELLE MD Saline Lock (01/24/25 09:14) Oxygen (01/24/25 09:14) Chest,Single View (01/24/25 09:14) Culture Blood (01/24/25 09:34) Straight Cath For Urine Sample (01/24/25 09:34) Cta Chest Pe (01/24/25 14:23) Vl Venous (01/24/25 12:46) Page Hospitalist (01/24/25 16:34) Fill Out Med Reconciliation (01/24/25 16:34) Completed Orders - NADIRA MICHELLE MD Cbc/Diff (01/24/25 09:14) Chest,Single View (01/24/25 09:14) PBNP (01/24/25 09:14) Lacticsepsis (01/24/25 09:14) CMP (01/24/25 09:14) Procalcitonin (01/24/25 09:14) Electrocardiogram (01/24/25 09:14) Pt Inr (01/24/25 09:34) PTT (01/24/25 09:34) Urinalysis, Cult If Indicated (01/24/25 09:34) Hs Troponin I W Calculations (01/24/25 09:34) Hs Troponin I W Calculations (01/24/25 11:34) Drug Screen, Urine (01/24/25 09:34) CK (01/24/25 09:26) Ethanol (01/24/25 09:26) MG (01/24/25 09:26) Cta Chest Pe (01/24/25 14:23) Vl Venous (01/24/25 12:46) Diphenhydramine Inj (Benadryl Inj.) (01/24/25 12:55) Iohexol 350mg/Ml 100ml (Omnipaque 350mg/ (01/24/25 14:00) Azithromycin/Ns 500mg/250ml (Zithromax/N (01/24/25 15:35) Ceftriaxone/[id number] 1gm (Rocephin 1 (01/24/25 15:35) Furosemide Inj (Lasix Inj) (01/24/25 16:35) Albuterol 2.5mg/3ml Nebule (Proventil 2. (01/24/25 16:35) * Rt Notification Q1H (01/24/25 16:35) Furosemide 40mg Inj (Lasix Inj) (01/24/25 16:45) Vital Signs 01/24/25 01/24/25 01/24/25 01/24/25 09:04 10:00 10:01 10:15 Temp 96.9 Pulse 103 90 91 98 Resp 22 21 19 16 B/P (MAP) 128/87 Pulse Ox 94 92 90 O2 Flow Rate 4.0 01/24/25 01/24/25 01/24/25 01/24/25 10:30 10:32 10:45 10:59 Pulse 94 81 84 Resp 14 B/P (MAP) Pulse Ox 90 89 89 O2 Delivery Room Air* O2 Flow Rate 0 FiO2 21 01/24/25 01/24/25 01/24/25 01/24/25 11:00 11:05 11:15 11:21 Pulse 86 88 87 84 Resp B/P (MAP) 186/128 (147) 116/76 (89) 116/76 (89) Pulse Ox 91 92 91 92 O2 Delivery Room Air* O2 Flow Rate 0 2.0 FiO2 21 01/24/25 01/24/25 01/24/25 01/24/25 11:30 11:37 11:45 12:00 Pulse 87 82 80 Resp B/P (MAP) 117/73 (88) Pulse Ox 88 96 90 94 O2 Flow Rate 2.0 2.0 3.0 01/24/25 01/24/25 01/24/25 01/24/25 12:15 12:30 12:45 13:00 Pulse 82 83 81 84 Resp 15 B/P (MAP) 158/85 (109) 136/89 (105) Pulse Ox 94 93 O2 Flow Rate 3.0 3.0 01/24/25 01/24/25 01/24/25 01/24/25 13:15 13:30 13:45 14:00 Pulse 83 96 78 81 Resp Pulse Ox 91 93 O2 Flow Rate 3.0 3.0 01/24/25 01/24/25 01/24/25 01/24/25 14:45 15:00 15:15 15:30 Pulse 81 79 83 82 Resp B/P (MAP) 143/94 (110) 153/95 (114) 148/89 (108) Pulse Ox 87 87 88 O2 Flow Rate 3.0 3.0 01/24/25 01/24/25 01/24/25 01/24/25 15:45 16:00 16:15 16:30 Pulse 83 82 85 84 Resp B/P (MAP) 141/95 (110) 148/101 (117) 140/96 (111) 137/85 (102) Pulse Ox 87 86 89 88 O2 Flow Rate 3.0 4.0 5.0 6.0 01/24/25 01/24/25 01/24/25 16:37 16:38 16:40 Resp 22 Pulse Ox 97 95 O2 Delivery Simple Mask* Nasal Cannula O2 Flow Rate 10 6.0 10.0 FiO2 99 Laboratory Tests Test 01/24/25 09:26 01/24/25 09:29 01/24/25 10:02 01/24/25 11:05 Sodium Level 143 Potassium Level 4.2 Chloride Level 103 Carbon Dioxide Level 32.2 H Anion Gap 8 Blood Urea Nitrogen 16 Creatinine 1.12 H Estimated GFR/1.73 m2 51 BUN/Creatinine Ratio 14.3 Glucose Level 223 H Calcium Level 9.1 Magnesium Level 1.9 Total Bilirubin 0.4 Aspartate Amino Transf (AST/SGOT) 16 Alanine Aminotransferase (ALT/SGPT) 36 Alkaline Phosphatase 123 H Total Creatine Kinase 88 Pro-B-Type Natriuretic Peptide < 30 Total Protein 7.9 Albumin 3.5 Globulin 4.4 H Albumin/Globulin Ratio 0.8 L Chemistry Comments Ethyl Alcohol Level < 10 White Blood Count 6.6 Red Blood Count 4.06 L Hemoglobin 11.9 L Hematocrit 35.4 Mean Corpuscular Volume 87.1 Mean Corpuscular Hemoglobin 29.3 Mean Corpuscular Hemoglobin Concent 33.7 Red Cell Distribution Width 15.4 H Platelet Count 208 Mean Platelet Volume 7.7 Neutrophils (%) (Auto) 68.5 Lymphocytes (%) (Auto) 23.4 Monocytes (%) (Auto) 5.1 Eosinophils (%) (Auto) 2.5 Basophils (%) (Auto) 0.5 Neutrophils # (Auto) 4.5 Lymphocytes # (Auto) 1.5 Monocytes # (Auto) 0.3 Eosinophils # (Auto) 0.2 Basophils # (Auto) 0.0 CBC Comment Prothrombin Time 9.6 INR International Normalized Ratio 0.9 Activated Partial Thromboplast Time 27 Coagulation Comments Lactic Acid Level 1.7 Procalcitonin < 0.05 Troponin I High Sensitivity 5 SARS-CoV-2 Antigen (Rapid) Negative Test 01/24/25 11:40 Troponin I High Sensitivity 4 Troponin I High Sens Percent Delta 20 Troponin I Hi Sens Absolute Change -1 Microbiology Date/Time Source Procedure Growth Status 01/24/25 09:46 Blood Arm Left Blood Culture - Preliminary NO GROWTH AFTER 4 DAYS Resulted EKG/XRAY/CT/US/VASC/MRI EKG : Additional Comment EXAM: DI CHEST,SINGLE VIEW Indication: SOB Technique: Single frontal view of the chest was obtained Comparison: DI CHEST,SINGLE VIEW on DOS: 09/02/24, DI CHEST,SINGLE VIEW on DOS: 07/13/24, DI CHEST,TWO VIEWS on DOS: 07/03/24 FINDINGS: Lines and Tubes: None Lungs: No focal consolidation. Pleura: No effusion. No pneumothorax. Cardiomediastinal contours: Unremarkable Bones: No acute osseous abnormality. IMPRESSION: No acute cardiopulmonary disease. LEFT LOWER EXTREMITY VENOUS DUPLEX REASON FOR EXAMINATION: Left lower extremity pain and edema. COMPARISON: None TECHNIQUE: Using real-time freeze-frame technique with a high-frequency transducer, multiple longitudinal and transverse sections were obtained. Simultaneous color flow and spectral Doppler imaging was performed. FINDINGS: There is good visualization of the deep venous system with no intraluminal filling defects identified. Normal venous compressibility is seen and there is flow augmentation. Color flow Doppler imaging is unremarkable. IMPRESSION: NO EVIDENCE OF DEEP VENOUS THROMBOSIS. Indication: hypoxia and SOB Technique: CT axial images of the abdomen and pelvis are obtained with intravenous contrast. Coronal and sagittal reformats were obtained. Radiation Dose Information: CTDI volume is 25 mGy. Dose-length product is 797 mGy*cm Comparison: None FINDINGS: No filling defect within the main left and right pulmonary arteries. Segmental and subsegmental branches are suboptimally characterized. Small bilateral pleural effusions. Trachea patent. No pneumothorax. Multifocal pulmonary airspace consolidation, ground-glass disease more pronounced within the right lung. Right hilar lymph node measuring 1.4 cm. Subcarinal lymph node measuring 1.2 cm. Pretracheal lymph node measuring 13 mm. Heart size enlarged. No supraclavicular or axillary lymphadenopathy. Hepatosplenomegaly. Hepatic steatosis. Small hiatal hernia. No aggressive osseous process. IMPRESSION: No evidence for large pulmonary embolism. Multifocal pulmonary airspace consolidation, ground-glass disease, [id number]-left. This is likely secondary to combination of pneumonia/ infection and edema. Follow-up to resolution. Small bilateral pleural effusions. Cardiomegaly. Hepatosplenomegaly. Hepatic steatosis. Chest X-Ray : Additional Comments EXAM: DI CHEST,SINGLE VIEW Indication: SOB Technique: Single frontal view of the chest was obtained Comparison: DI CHEST,SINGLE VIEW on DOS: 09/02/24, DI CHEST,SINGLE VIEW on DOS: 07/13/24, DI CHEST,TWO VIEWS on DOS: 07/03/24 FINDINGS: Lines and Tubes: None Lungs: No focal consolidation. Pleura: No effusion. No pneumothorax. Cardiomediastinal contours: Unremarkable Bones: No acute osseous abnormality. IMPRESSION: No acute cardiopulmonary disease. : Impression Indication: hypoxia and SOB Technique: CT axial images of the abdomen and pelvis are obtained with intravenous contrast. Coronal and sagittal reformats were obtained. Radiation Dose Information: CTDI volume is 25 mGy. Dose-length product is 797 mGy*cm Comparison: None FINDINGS: No filling defect within the main left and right pulmonary arteries. Segmental and subsegmental branches are suboptimally characterized. Small bilateral pleural effusions. Trachea patent. No pneumothorax. Multifocal pulmonary airspace consolidation, ground-glass disease more pronounced within the right lung. Right hilar lymph node measuring 1.4 cm. Subcarinal lymph node measuring 1.2 cm. Pretracheal lymph node measuring 13 mm. Heart size enlarged. No supraclavicular or axillary lymphadenopathy. Hepatosplenomegaly. Hepatic steatosis. Small hiatal hernia. No aggressive osseous process. IMPRESSION: No evidence for large pulmonary embolism. Multifocal pulmonary airspace consolidation, ground-glass disease, [id number]-left. This is likely secondary to combination of pneumonia/ infection and edema. Follow-up to resolution. Small bilateral pleural effusions. Cardiomegaly. Hepatosplenomegaly. Hepatic steatosis. Other findings as described Vascular : Impression LEFT LOWER EXTREMITY VENOUS DUPLEX REASON FOR EXAMINATION: Left lower extremity pain and edema. COMPARISON: None TECHNIQUE: Using real-time freeze-frame technique with a high-frequency transducer, multiple longitudinal and transverse sections were obtained. Simultaneous color flow and spectral Doppler imaging was performed. FINDINGS: There is good visualization of the deep venous system with no intraluminal filling defects identified. Normal venous compressibility is seen and there is flow augmentation. Color flow Doppler imaging is unremarkable. IMPRESSION: NO EVIDENCE OF DEEP VENOUS THROMBOSIS. Medical Decision Making Additional Information 54 years old female with history of psychiatric disorders including bipolar, remote history of methamphetamine smoker, presented to the ED due to shortness of breath productive cough and generalized weakness, initial diagnosis could be offer/lower respiratory infection including pneumonia, COPD exacerbation. Due to changing medication including adding Depakote and Lyrica to her previous meds, her fogginess could be due to medications adverse effect CTA ordere for further evaluation CT indicating no PE but likely pneumonia. Patient started on IV antibiotics. Also given IV solumedrol, albuterol nebulizer. Patient slightly edematous and with crackles and given 40 mg IV lasix. Admitted to hospitalist service. Departure Admitted to Inpatient Unit: to hospitalist Admission Level of Care: PCU with Tele Impression: Primary Impression: Shortness of breath Additional Impressions: Weakness Pneumonia Referrals: NO PRIMARY CARE PROVIDER (PCP) Signature Scribe Signature: Mike Roldan MD Attestation: The resident MD attestation: I examined the patient and discussed the plan with attending physician Dr Michelle The note accurately reflects work and decisions made by me.Nadira Echeverria MD 01/28/25 15:11 TRISTEN ALDANA Jan 24, 2025 09:41 MIKE ROLDAN, SKYLER Jan 24, 2025 10:48 NADIRA MICHELLE MD Jan 28, 2025 15:16
[2025-01-24 09:52] LABS: CREATININE 1.12 MG/DL (0.40-0.90); TOTAL CARBON DIOXIDE 32.2 MMOL/L (24-32); eCRCL 46 ML/MIN; eGFR 51 ML/MIN
--- NOTE | 2025-01-24 09:53 | RADIOLOGY REPORT ---
EXAM: DI CHEST,SINGLE VIEW Indication: SOB Technique: Single frontal view of the chest was obtained Comparison: DI CHEST,SINGLE VIEW on DOS: 09/02/24, DI CHEST,SINGLE VIEW on DOS: 07/13/24, DI CHEST,TWO VIEWS on DOS: 07/03/24 FINDINGS: Lines and Tubes: None Lungs: No focal consolidation. Pleura: No effusion. No pneumothorax. Cardiomediastinal contours: Unremarkable Bones: No acute osseous abnormality. IMPRESSION: No acute cardiopulmonary disease.
[2025-01-24 10:00] LABS: PRO BRAIN NATRIURETIC PEPTIDE < 30 PG/ML (0-125)
[2025-01-24 10:04] LABS: APTT 27 SECONDS (22-32)
[2025-01-24 10:16] LABS: INR 0.9 INR
[2025-01-24 10:30] LABS: ETHANOL < 10 MG/DL (<10)
[2025-01-24] MEDS: ipratropium/albuterol 3ml nebule NEB ONE (10:57)
[2025-01-24 10:59] VITALS: PULSE 84; RESP 14; O2SAT 89
[2025-01-24 11:05] VITALS: PULSE 88; RESP 20; O2SAT 92
--- NOTE | 2025-01-24 14:08 | VASCULAR REPORT ---
LEFT LOWER EXTREMITY VENOUS DUPLEX REASON FOR EXAMINATION: Left lower extremity pain and edema. COMPARISON: None TECHNIQUE: Using real-time freeze-frame technique with a high-frequency transducer, multiple longitudinal and transverse sections were obtained. Simultaneous color flow and spectral Doppler imaging was performed. FINDINGS: There is good visualization of the deep venous system with no intraluminal filling defects identified. Normal venous compressibility is seen and there is flow augmentation. Color flow Doppler imaging is unremarkable. IMPRESSION: NO EVIDENCE OF DEEP VENOUS THROMBOSIS.
--- NOTE | 2025-01-24 15:24 | RADIOLOGY REPORT ---
Indication: hypoxia and SOB Technique: CT axial images of the abdomen and pelvis are obtained with intravenous contrast. Coronal and sagittal reformats were obtained. Radiation Dose Information: CTDI volume is 25 mGy. Dose-length product is 797 mGy*cm Comparison: None FINDINGS: No filling defect within the main left and right pulmonary arteries. Segmental and subsegmental branches are suboptimally characterized. Small bilateral pleural effusions. Trachea patent. No pneumothorax. Multifocal pulmonary airspace consolidation, ground-glass disease more pronounced within the right lung. Right hilar lymph node measuring 1.4 cm. Subcarinal lymph node measuring 1.2 cm. Pretracheal lymph node measuring 13 mm. Heart size enlarged. No supraclavicular or axillary lymphadenopathy. Hepatosplenomegaly. Hepatic steatosis. Small hiatal hernia. No aggressive osseous process. IMPRESSION: No evidence for large pulmonary embolism. Multifocal pulmonary airspace consolidation, ground-glass disease, [id number]-left. This is likely secondary to combination of pneumonia/ infection and edema. Follow-up to resolution. Small bilateral pleural effusions. Cardiomegaly. Hepatosplenomegaly. Hepatic steatosis. Other findings as described
[2025-01-24] MEDS: CefTRIAXone/D5W-Rocephin 1gm 50 ML IV ONE (16:23)
[2025-01-24] MEDS: azithromycin/NS 500mg/250ml 250 ML IV ONE (16:23)
[2025-01-24] MEDS: furosemide 10 MG/1 ML 10ml inj IV ONE (16:35)
[2025-01-24] MEDS ORDERED: albuterol 2.5 MG/3 ML nebule CONTNEB PRN (16:35)
[2025-01-24] MEDS ORDERED: magnesium sulf-water 4G/100mL 100 ML IV PRN (18:00)
[2025-01-24] MEDS ORDERED: ondansetron/PF 4mg/2ml inj IV PRN (18:00)
[2025-01-24] MEDS ORDERED: potassium Cl 40MEQ/1/2NS 520ml 520 ML IV PRN (18:00)
[2025-01-24] MEDS ORDERED: mag hydrox/Alum hydrox/simeth 30ml oral suspension PO PRN (18:00)
[2025-01-24] MEDS ORDERED: magnesium sulf-water 2g/50mL 50 ML IV PRN (18:00)
[2025-01-24] MEDS ORDERED: magnesium Cl slow-release 64mg tablet PO PRN (18:00)
[2025-01-24] MEDS ORDERED: magnesium hydroxide 30ml (MOM) UD suspension PO PRN (18:00)
[2025-01-24] MEDS ORDERED: potassium Cl 20 mEq SR tablet PO PRN ×2 (18:00)
[2025-01-24] MEDS ORDERED: azithromycin/NS 500mg/250ml 250 ML IV SCH (18:10)
[2025-01-24] MEDS ORDERED: CefTRIAXone/D5W-Rocephin 1gm 50 ML IV SCH (18:10)
[2025-01-24] MEDS: ipratropium/albuterol 3ml nebule NEB SCH (18:15)
[2025-01-24] MEDS ORDERED: albuterol 1.25 MG/3 ML (1/2 strength) nebule NEB PRN (18:15)
--- NOTE | 2025-01-24 18:22 | HISTORY AND PHYSICAL-Residence ---
History & Physical Providers to CC Resident Creating Document: FUNMI BOYER, RES ~ History of Present Illness Primary Medical Doctor: NONE Reason for Admit\Complaint: Shortness of breath History of Present Illness A 54 years old female with past medical history of hypertension, hyperlipidemia, GERD presented to the ER with chief complaint of shortness of the breath and productive cough. She stated that she has shortness of breath for the past 4 days aggravated with activity and swelling of both legs since 2 days. She also reports yellowish productive cough since 4 days what she denies orthopnea, PND, fever, chills, chest pain, abdominal pain, lightheadedness, dizziness. She also endorses that she has generalized weakness, fatigue, intermittent forgetfulness, recent multiple falls but hit her head or did not lose consciousness. Patient discharged from our hospital from mental health unit with diagnosis of bipolar disorder, PTSD and recently they add Depakote and Lyrica to her previous medication. Allergies: Coded Allergies: No Known Drug Allergies (Verified Allergy, Unknown, 01/12/25) Home Medications Home Medications Active Clonidine HCl 0.2 Mg Tablet 1 Tab PO HS 30 Days Clonidine HCl 0.1 Mg Tablet 1 Tab PO DAILY 30 Days Levothyroxine Sodium 100 Mcg Tablet 100 Mcg PO DAILY@07 30 Days Quetiapine Fumarate 400 Mg Tablet 1 Tab PO HS 30 Days LYRICA capsule (Pregabalin) 75 Mg Capsule 150 Mg PO BID 30 Days Divalproex Sodium ER (Divalproex Sodium) 500 Mg Tab.er.24h 2 Tab PO HS 30 Days Atorvastatin Calcium 80 Mg Tablet 1 Tab PO DAILY 30 Days Trazodone HCl 100 Mg Tablet 1 Tab PO HS 30 Days Pramipexole Dihydrochloride (Pramipexole Di-Hcl) 0.25 Mg Tablet 1 Tab PO HS 30 Days Past Medical History Past Medical History Hypertension Gerd Anxiety Bipolar disorder Depression Hyperlipidemia Left-sided deep vein thrombus Obstructive sleep apnea Past Surgical History Surgical History Comment No past surgical history Family History Family History: FH: bipolar disorder FATHER, Onset:Unknown FH: schizophrenia FATHER, Onset:Unknown FH: suicide GRANDFATHER OR GRANDMOTHER, Onset:Unknown Maternal grandfather Past Social History Smoking: Quit greater than 1 year Drug Use: Other (Homeless, quit smoking methamphetamine and cigarettes five years ago) Health Maintenance Health Maintenance Ex-smoker, she quit smoking cigarettes 5 years ago, previously she used to smoke 7-10 cigarettes per day for many years. She is not an alcoholic. She quit smoking methamphetamine 5 years ago, denies any other recreational use She is homeless, living at [facility] She is using CPAP during nights. ROS ROS Constitutional: No fever, chills, dizziness, weight gain or loss, night sweats Eyes: No pain, erythema, discharge, blurring of vision ENT: No sore throat, epistaxis, tinnitus Cardiovascular:No chest pain, palpitations, syncope, lower extremity edema, paroxysmal nocturnal dyspnea Respiratory: Report Shortness of breath and cough, No hemoptysis. Gastrointestinal:No Abdominal pain, vomiting,nausea and melena. Normal appetite. No constipation,diarrhea, hematemesis, Musculoskeletal: Swelling of both extremities. Integumentary: No change in skin, hair, nails. No swelling, bruising, abrasions Neurologic: No weakness,No headache, neck pain, numbness or tingling of the extremities, Psychiatric: No delusions, depression, loss of interest in normal activity or change in sleep pattern, hallucinations, suicidal ideations Endocrine: Reports generalized weakness and fatigue. Nopolydipsia, polyuria, change in appetite, heat or cold intolerance, sweating, dry skin Hematological: No bleeding, petechiae, bruising Allergies: No asthma or urticaria Neurological: Reports: see HPI Exam Vitals: Vital Signs Date Time Temp Pulse Resp B/P (MAP) Pulse Ox O2 Delivery O2 Flow Rate FiO2 01/24/25 16:40 95 10.0 01/24/25 16:38 22 Nasal Cannula 01/24/25 16:37 99 01/24/25 16:30 84 137/85 (102) 01/24/25 09:04 96.9 General: Awake , alert and oriented to time,place, person, morbidly obese, in mild distress HEENT: Atraumatic, normocephalic, PERRLA, EOMI, anicteric sclera ; pink conjunctiva, moist mucos membranes Neck: Trachea midline. Supple, normal range of motion, no JVD, no lymphadenopathy Chest and Respiratory: Equal breath sounds bilaterally, no tachypnea, mild wheezing , ronchi,rubs .Chest wall is symmetric and without deformity. Cardiac: S1, S2 heard,Regular rate and rhythm, no murmurs heard. Abdomen: Soft, No tenderness, No guarding or rigidity, Patrick's sign negative. normal bowel sounds x4 quadrant, no hepatosplenomegaly MSK: Range of motion of all extremities are normal. There is no joint pain or joint swelling or joint erythema. There is no muscle pain or tenderness or swelling. Extremities: Grade 1 pedal edema, warm, well-perfused, No cyanosis, clubbing, 2+ pulses felt Neurological: Speech is clear, alert, and oriented x 4. No sensory or motor deficits. Cranial nerves II-XII intact. Skin: Warm and dry Psychiatry: Affect and mood are normal Diagnostic Data Last Recorded Lab Results: 01/24/25 0929 01/24/25 0926 Diagnostic Data: Laboratory Tests Test 01/24/25 09:29 Prothrombin Time 9.6 SECONDS (9.0-12.0) INR International Normalized Ratio 0.9 INR Activated Partial Thromboplast Time 27 SECONDS (22-32) Coagulation Comments Advance Care Planning Advanced Care plannin - 30 Minutes Additional Plan Possible community-acquired pneumonia Covering Gram-positive, Gram-negative and atypical organisms SIRS criteria not met Acute hypoxic respiratory failure Chest x-ray showed no acute cardiopulmonary disease. CT chest showed Multifocal pulmonary airspace consolidation, ground-glass disease, [id number]-left. This is likely secondary to combination of pneumonia/ infection and edema. Small bilateral pleural effusions. Rapid COVID antigen test is negative Patient oxygen saturation is in between 88-94 on 6 L of oxygen. plan: Follow up with sputum culture. Started on IV ceftriaxone 1 g and IV azithromycin 500 mg Q 24 H Started on DuoNebs q.4 H Nebulization with albuterol p.r.n. q.2h 125 mg IV Solu-Medrol was given and started on IV prednisolone 40 mg q.12h Possible CHF CT scan showed cardiomegaly with small bilateral pleural effusion. BNP level is within normal limits Patient has grade 1 pedal edema. plan: Started on IV Lasix 40 mg b.i.d. daily Follow up with the echocardiogram Acute kidney injury Creatinine level is 1.12, BUN/creatinine ratio is 14.3 with GFR of 51 mL/min plan: Follow up with urine lytes Started on IV normal saline at the rate of 70 mL/hr Monitor BMP levels Hypertension Blood pressure is mildly elevated Continue home medication clonidine History of left leg deep vein thrombus CT chest showed no evidence of large pulmonary embolism. No evidence of deep vein thrombus on venous Doppler. Hyperlipidemia Follow up with lipid panel, HbA1c Hypothyroidism Follow up with TSH levels. Obstructive sleep apnea Moderate obesity with BMI of 50.4 Patient is using CPAP Follow up with outpatient management. Pending home medication reconciliation. Code status: Full code DVT prophylaxis : Heparin GI prophylaxis: Pantoprazole Nutrition: Heart healthy diet Physical therapy: ordered Line/tube: PIV Analgesia/sedation: Morphine Disposition: Continue medical management. Resident attestation The above note has been reviewed and supervised by a senior resident PGY2/PGY3 Patient was seen, examined and discussed with the attending physician Tim Boyer MD Internal Medicine Resident, PGY 1 Date of Service: Jan 24, 2025 Billing Provider: PANDA WAGNER MD Common Visit Codes: [id number] INP/OBS CARE (HIGH) Secondary Visit Codes: 93186-[id number] CARE PLAN 30 MINUTES FUNMI BOYER, RES Jan 24, 2025 18:22 PANAD WAGNER MD Jan 26, 2025 05:44
[2025-01-24] MEDS: PERFLUTREN PROTEIN-A MICROSPHR (Optison) 0.22 MG/ML 3ML VIAL IV ONE (18:33)
[2025-01-24] MEDS: K and/or MAG REPLACEMENT MC SCH (18:58)
[2025-01-24] MEDS: docusate sod 100mg capsule PO SCH (18:58)
[2025-01-24 20:07] LABS: APTT 28 SECONDS (22-32); INR 1.0 INR
[2025-01-24 20:13] LABS: OSMOLALITY 311 MOSM/K (280-300)
[2025-01-24 20:18] LABS: CHOL/HDL RATIO 4.5 (0.00-4.99); CREATININE 1.24 MG/DL (0.40-0.90); LDL CHOLESTEROL 138 MG/DL (50-100); PHOSPHORUS 3.1 MG/DL (2.3-4.5); PRO BRAIN NATRIURETIC PEPTIDE < 30 PG/ML (0-125); TOTAL CARBON DIOXIDE 28.4 MMOL/L (24-32); eCRCL 42 ML/MIN; eGFR 45 ML/MIN
[2025-01-24] MEDS: furosemide 10 MG/1 ML 10ml inj IV SCH (20:32)
[2025-01-24] MEDS: methylPREDNISolone sod succ/PF 40mg inj. IV SCH (20:32)
[2025-01-24] MEDS: heparin, porcine 5000 units/ml vial SQ SCH (20:33)
[2025-01-24 20:43] LABS: CREATININE,URINE RANDOM 12.0 MG/DL
[2025-01-24 20:48] LABS: LEUKOCYTE ESTERASE ,URINE NEGATIVE (Neg); NITRITES, URINE NEGATIVE (Neg); OCCULT BLOOD,URINE NEGATIVE (Neg)
[2025-01-24 20:49] LABS: OSMOLALITY UA 315.0 MOSM/K (50-1400); UA COLLECTION TYPE VOIDED
[2025-01-24 20:53] LABS: URINE AMPHETAMINE SCREEN NEGATIVE (Neg); URINE BARBITUATE SCREEN NEGATIVE (Neg); URINE BENZODIAZEPINES SCREEN NEGATIVE (Neg); URINE CANNABINOID SCREEN NEGATIVE (Neg); URINE COCAINE SCREEN NEGATIVE (Neg); URINE METHADONE SCREEN NEGATIVE (Neg); URINE OPIATE SCREEN NEGATIVE (Neg); URINE PHENCYCLIDINE SCREEN NEGATIVE (Neg)
[2025-01-25] VITALS (20 sets, daily range): BP systolic 110–150; BP diastolic 77–90; PULSE 85–104; RESP 10–30; TEMP 97–98.3; O2SAT 89–97
[2025-01-25] MEDS ORDERED: albuterol 1.25 MG/3 ML (1/2 strength) nebule NEB PRN
[2025-01-25] MEDS: albuterol 2.5 MG/3 ML nebule NEB STA (00:12)
[2025-01-25 00:14] LABS: ABG BASE EXCESS 2.7 mmol/L (-2.0-3.0); ABG HCO3 26.5 mmol/L (21.0-28.0); ABG OXYGEN SATURATION 92.9 % (94.0-98.0); ABG PCO2 (T) 38.4 mmHg (32.0-45.0); ABG PH (T) 7.458 (7.350-7.450); ABG PO2 (T) 65.8 mmHg (83.0-108.0); ALLEN'S TEST Modified; FCOHb 0.8 % (0.5-1.5); FHHb 7.0 % (0.0-5.0); FIO2 100.0 mmHg/%; FLOW 15 L/min; FMetHb 0.3 % (0.0-1.5); FO2Hb 91.9 % (94.0-98.0); MODE nrb; PATIENT TEMPERATURE 37.2; TOTAL HEMOGLOBIN 13.1 G/dl (12.0-16.0)
--- NOTE | 2025-01-25 00:51 | RADIOLOGY REPORT ---
CHEST RADIOGRAPH Indication: short of breath Technique: Single frontal view of the chest was obtained COMPARISON: DI CHEST,SINGLE VIEW on DOS: 01/24/25, DI CHEST,SINGLE VIEW on DOS: 09/02/24, DI CHEST,SINGLE VIEW on DOS: 07/13/24, DI CHEST,TWO VIEWS on DOS: 07/03/24 FINDINGS: Lines and Tubes: None Lungs: Mild bibasilar atelectasis and or pulmonary airspace disease. Pleura: No effusion. No pneumothorax. Cardiomediastinal contours: Unremarkable Bones: Unremarkable IMPRESSION: 1. Mild bibasilar atelectasis and/or pulmonary airspace disease.
[2025-01-25] MEDS ORDERED: albuterol 2.5 MG/3 ML nebule NEB PRN (00:55)
[2025-01-25 06:04] LABS: MEAN PLATELET VOLUME 8.3 FL (7.4-10.4); RED CELL DISTRIBUTION WIDTH 15.2 % (11.5-14.5)
[2025-01-25 06:10] LABS: CREATININE 1.58 MG/DL (0.40-0.90); TOTAL CARBON DIOXIDE 26.9 MMOL/L (24-32); eCRCL 33 ML/MIN; eGFR 34 ML/MIN
[2025-01-25] MEDS: pantoprazole 40mg Tablet.DR PO SCH (07:30)
[2025-01-25] MEDS: CefTRIAXone/D5W-Rocephin 1gm 50 ML IV SCH (08:00)
[2025-01-25] MEDS: azithromycin/NS 500mg/250ml 250 ML IV SCH (08:24)
--- NOTE | 2025-01-25 14:21 | CARDIOLOGY REPORT ---
APPROVED REPORT EXAM: Comprehensive 2D, Doppler, and color-flow Echocardiogram. 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 2.93 cm IVC 12.84 mm FS (%) 46.4 % SV 94.9 ml CO 8.5 L/min M-Mode Dimensions Left Atrium(MM) 4.22 (2.5-4.0cm) Aortic Root 3.00 (2.2-3.7cm) Aortic Cusp Exc 1.70 (1.5-2.0cm) MV EPSS 0.3 (<0.5cm) Aortic Valve AoV Peak Francisco. 137.2 cm/s AoV VTI 22.8 cm AO Peak GR. 7.5 mmHg AO Mean GR. 5 mmHg LVOT VTI 21.97 cm LVOT Peak Francisco. 113.8 cm/s ASHLEY(VTI)/BSA 2.80 cm2/m2 ASHLEY (VTI) 2.80 cm2 AV DI 0.96 % Mitral Valve MV E Velocity 61.3 cm/s MV Peak Gr. 3 mmHg MV DECEL TIME 212 ms MV A Velocity 89.4 cm/s MV PHT 64 ms E/A Ratio 0.7 MVA (PHT) 3.44 cm2 MV VMax 81.2 cm/s TDI Lateral E' P. V 8.00 cm/s E/Lateral E' 7.7 Pulmonary Valve PAEDP 12.59 mmHg Tricuspid Valve TR P. Velocity 251 cm/s RAP ESTIMATE 10 mmHg TR Peak Gr. 25 mmHg RVSP 35 mmHg LEFT VENTRICLE Normal LV size and wall thickness. Overall systolic function is normal. Overall LVEF is 70%. RIGHT VENTRICLE RV is normal size and function. Estimated PA systolic pressure of 35 mm of mercury. ATRIA The left atrium size is normal. AORTIC VALVE Trileaflet AV appears mildly sclerotic without stenosis. No insufficiency. MITRAL VALVE Mild mitral annular calcification witihout stenosis. Trace regurgitation. TRICUSPID VALVE The tricuspid valve is normal in structure with trace regurgitation. PULMONIC VALVE Pulmonic valve is grossly normal in structure with physiologic insufficiency. GREAT VESSELS The aortic root is normal in size. The ascending aorta is normal in size. IVC is normal in size. PERICARDIUM Normal pericardium. No effusion. Conclusion Overall LVEF is 70%. Normal LV size and wall thickness. Overall systolic function is normal. RV is normal size and function. Estimated PA systolic pressure of 35 mm of mercury. Trileaflet AV appears mildly sclerotic without stenosis. No insufficiency. Mild mitral annular calcification witihout stenosis. Trace regurgitation. The tricuspid valve is normal in structure with trace regurgitation. Pulmonic valve is grossly normal in structure with physiologic insufficiency. Normal pericardium. No effusion.
[2025-01-25] MEDS: normal saline 1000ml 1,000 ML IV SCH (16:05)
--- NOTE | 2025-01-25 16:06 | PROGRESS NOTE- Residence ---
Progress Note - Resident Providers to CC Resident Creating Document: FUNMI BOYER RES ~ Antibiotic Timeout Antibiotic Ordered?: Yes Subjective Patient was seen and examined at bedside. Patient complains of shortness of breath. She denies orthopnea, PND, lightheadedness, dizziness. Objective Vital Signs Date Time Temp Pulse Resp B/P (MAP) Pulse Ox O2 Delivery O2 Flow Rate FiO2 01/25/25 11:55 94 18 94 [place] Nasal Cannula* 15 71 01/25/25 11:00 97.0 134/84 (101) Result Diagram: 01/25/25 0531 01/25/25 0531 Awake , alert and oriented to time,place, person, morbidly obese, in mild distress HEENT: Atraumatic, normocephalic, PERRLA, EOMI, anicteric sclera ; pink conjunctiva, moist mucos membranes Neck: Trachea midline. Supple, normal range of motion, no JVD, no lymphadenopathy Chest and Respiratory: Equal breath sounds bilaterally, no tachypnea, no wheeze , ronchi,rubs .Chest wall is symmetric and without deformity. Cardiac: S1, S2 heard,Regular rate and rhythm, no murmurs heard. Abdomen: Soft, No tenderness, No guarding or rigidity, Patrick's sign negative. normal bowel sounds x4 quadrant, no hepatosplenomegaly MSK: Range of motion of all extremities are normal. There is no joint pain or joint swelling or joint erythema. There is no muscle pain or tenderness or swelling. Extremities: Grade 1 pedal edema, warm, well-perfused, No cyanosis, clubbing, 2+ pulses felt Neurological: Speech is clear, alert, and oriented x 4. No sensory or motor deficits. Cranial nerves II-XII intact. Skin: Warm and dry Psychiatry: Affect and mood are normal Coagulation Studies Laboratory Tests Test 01/24/25 19:41 Prothrombin Time 10.1 SECONDS (9.0-12.0) INR International Normalized Ratio 1.0 INR Activated Partial Thromboplast Time 28 SECONDS (22-32) Coagulation Comments Plan Plan Acute hypoxic respiratory failure Mild pulmonary arterial hypertension Possible acute on chronic heart failure with preserved ejection fraction, LVEF is 70%. Obstructive sleep apnea Moderate obesity with BMI of 50.4 01/25/25: Patient's saturation is 94% with 15 L of oxygen @ salter nasal cannula Arterial blood gas analysis was normal. Continue on DuoNebs q.4 H Nebulization with albuterol p.r.n. q.2h IV 125 mg Solu-Medrol stat dose was given and Continue on IV prednisolone 60 mg q.12h Possible community-acquired pneumonia Covering Gram-positive, Gram-negative and atypical organisms SIRS criteria not met Chest x-ray showed no acute cardiopulmonary disease. CT chest showed Multifocal pulmonary airspace consolidation, ground-glass disease, [id number]-left. This is likely secondary to combination of pneumonia/ infection and edema. Small bilateral pleural effusions. Rapid COVID antigen test is negative Patient oxygen saturation is in between 88-94 on 6 L of oxygen. plan: Follow up with sputum culture. Started on IV ceftriaxone 1 g and IV azithromycin 500 mg Q 24 H Started on DuoNebs q.4 H Nebulization with albuterol p.r.n. q.2h 125 mg IV Solu-Medrol was given and started on IV prednisolone 40 mg q.12h 01/25/25: CBC showed elevated leukocytosis, lactic acid and procalcitonin are normal, no signs of infection, elevated white count is due to methylprednisolone. Continue IV ceftriaxone 1 g and IV azithromycin 500 mg Q 24 H Possible acute on chronic heart failure with preserved ejection fraction, LVEF is 70%. Mild pulmonary arterial hypertension. CT scan showed cardiomegaly with small bilateral pleural effusion. BNP level is within normal limits Patient has grade 1 pedal edema. plan: Started on IV Lasix 40 mg b.i.d. daily 01/25/2025: Echocardiogram showed LVEF is 70%. Estimated PA systolic pressure of 35 mm of mercury. Continue IV Lasix 40 mg b.i.d. Strict input and output monitoring, daily weights. Acute kidney injury likely renal tubular stasis Creatinine level up trended to 1.58 from 1.12 BUN/creatinine ratio is 13.9 with GFR of 34 mL/min fena is 8%, urine sodium is 86 Serum osmolality is 311 01/25/25: Started on IV normal saline at the rate of 100 mL/hour Monitor BMP levels Hypertension Blood pressure is mildly elevated Continue home medication clonidine History of left leg deep vein thrombus CT chest showed no evidence of large pulmonary embolism. No evidence of deep vein thrombus on venous Doppler. Hyperlipidemia Patient LDL level is 138 Continue on home medication atorvastatin 80 mg Hypothyroidism Continue Home medication levothyroxine Obstructive sleep apnea Moderate obesity with BMI of 50.4 Patient is using CPAP at night Follow up with outpatient management. New onset diabetes mellitus possible type 2 -Started on low-dose Humalog -grade recorder was consulted - patient was educated about diabetes. -advised to follow up with outpatient management. Code status: Full code DVT prophylaxis : Heparin GI prophylaxis: Pantoprazole Nutrition: 75 g carb controlled diet Physical therapy: ordered Line/tube: PIV Analgesia/sedation: Morphine Disposition: Continue medical management. Resident attestation The above note has been reviewed and supervised by a senior resident PGY2/PGY3 Patient was seen, examined and discussed with the attending physician Tim Boyer MD Internal Medicine Resident, PGY 1 Date of Service: Jan 25, 2025 Billing Provider: PANDA WAGNER MD Common Visit Codes: [id number] INP/OBS CARE(HIGH) FUNMI BOYER, RES Jan 25, 2025 16:06 PANDA WAGNER MD Jan 26, 2025 05:45
[2025-01-25] MEDS ORDERED: glucagon, human recombinant 1mg kit SUBCUT PRN (16:15)
[2025-01-25] MEDS ORDERED: DEXTROSE 15 GM of carb/4 tabs (each vial/BOTTLE has 4 tablets) PO PRN ×2 (16:15)
[2025-01-25] MEDS ORDERED: dextrose 50%-water 50ml dispensing syringe IV PRN ×2 (16:15)
[2025-01-25 16:28] LABS: ABG BASE EXCESS 4.7 mmol/L (-2.0-3.0); ABG HCO3 29.5 mmol/L (21.0-28.0); ABG OXYGEN SATURATION 96.5 % (94.0-98.0); ABG PCO2 (T) 43.9 mmHg (32.0-45.0); ABG PH (T) 7.443 (7.350-7.450); ABG PO2 (T) 87.9 mmHg (83.0-108.0); ALLEN'S TEST Yes; FCOHb 0.4 % (0.5-1.5); FHHb 3.5 % (0.0-5.0); FIO2 71.0 mmHg/%; FLOW 15 L/min; FMetHb 0.3 % (0.0-1.5); FO2Hb 95.8 % (94.0-98.0); MODE HIGH FLOW; PATIENT TEMPERATURE 36.7; TOTAL HEMOGLOBIN 11.6 G/dl (12.0-16.0)
[2025-01-25] MEDS: levoFLOXACIN-Levaquin 500mg/D5 100 ML IV SCH (17:13)
[2025-01-25] MEDS: INSULIN LISPRO 100 UNIT/ML INSULN.PEN MULTI-DOSE SQ SCH (17:32)
[2025-01-25] MEDS: divalproex sod 250mg ER (24-hour) tablet PO SCH (20:24)
[2025-01-25] MEDS: methylPREDNISolone sod succ/PF 40mg inj. IV SCH (20:35)
[2025-01-26] VITALS (11 sets, daily range): BP systolic 120–138; BP diastolic 70–80; PULSE 75–91; RESP 12–20; TEMP 97–98; O2SAT 89–96
[2025-01-26 06:20] LABS: MEAN PLATELET VOLUME 8.5 FL (7.4-10.4); RED CELL DISTRIBUTION WIDTH 15.3 % (11.5-14.5)
[2025-01-26 06:25] LABS: CREATININE 1.16 MG/DL (0.40-0.90); TOTAL CARBON DIOXIDE 32.2 MMOL/L (24-32); eCRCL 44 ML/MIN; eGFR 49 ML/MIN
[2025-01-26] MEDS: levoTHYROXINE 100mcg tablet PO SCH (07:00)
[2025-01-26] MEDS: guaiFENesin ER 600mg tablet PO SCH (11:44)
--- NOTE | 2025-01-26 19:46 | PROGRESS NOTE- Residence ---
Progress Note - Resident Providers to CC Resident Creating Document: FUNMI BOYER, SKYLER ~ Antibiotic Timeout Antibiotic Ordered?: Yes Subjective Patient was seen and examined at bedside. Patient still complains of shortness of breath better than yesterday. She denies orthopnea, PND, lightheadedness, dizziness. Patient oxygen saturation is 94 % on 8 L of oxygen via nasal cannula Objective Vital Signs Date Time Temp Pulse Resp B/P (MAP) Pulse Ox O2 Delivery O2 Flow Rate FiO2 01/26/25 18:30 77 01/26/25 15:31 8.0 01/26/25 15:30 18 96 01/26/25 07:30 High Flow Nasal Cannula 01/26/25 02:00 98.0 126/70 (88) 01/25/25 23:22 80 Result Diagram: 01/26/25 0521 01/26/25 0521 Awake , alert and oriented to time,place, person, morbidly obese, not in distress HEENT: Atraumatic, normocephalic, PERRLA, EOMI, anicteric sclera ; pink conjunctiva, moist mucos membranes Neck: Trachea midline. Supple, normal range of motion, no JVD, no lymphadenopathy Chest and Respiratory: Equal breath sounds bilaterally, no tachypnea, no wheeze , ronchi,rubs .Chest wall is symmetric and without deformity. Cardiac: S1, S2 heard,Regular rate and rhythm, no murmurs heard. Abdomen: Soft, No tenderness, No guarding or rigidity, Patrick's sign negative. normal bowel sounds x4 quadrant, no hepatosplenomegaly MSK: Range of motion of all extremities are normal. There is no joint pain or joint swelling or joint erythema. There is no muscle pain or tenderness or swelling. Extremities: Grade 1 pedal edema improved, warm, well-perfused, No cyanosis, clubbing, 2+ pulses felt Neurological: Speech is clear, alert, and oriented x 4. No sensory or motor deficits. Cranial nerves II-XII intact. Skin: Warm and dry Psychiatry: Affect and mood are normal Coagulation Studies Laboratory Tests Test 01/24/25 19:41 Prothrombin Time 10.1 SECONDS (9.0-12.0) INR International Normalized Ratio 1.0 INR Activated Partial Thromboplast Time 28 SECONDS (22-32) Coagulation Comments Plan Plan Acute hypoxic respiratory failure Mild pulmonary arterial hypertension Possible acute on chronic heart failure with preserved ejection fraction, LVEF is 70%. Obstructive sleep apnea Moderate obesity with BMI of 50.4 01/25/25: Patient's saturation is 94% with 15 L of oxygen @ salter nasal cannula Arterial blood gas analysis was normal. Continue on DuoNebs q.4 H Nebulization with albuterol p.r.n. q.2h IV 125 mg Solu-Medrol stat dose was given and Continue on IV prednisolone 60 mg q.12h 01/26/2025: Patient's saturation is 94% with 8 L of oxygen @ nasal cannula Continue on DuoNebs q.4 H Nebulization with albuterol p.r.n. q.2h Continue on IV prednisolone 60 mg q.12h Started on Mucinex 600 mg q.12h Continue on IV Lasix 40 mg b.i.d. daily Strict input and output monitoring, daily weights. Possible community-acquired pneumonia Covering Gram-positive, Gram-negative and atypical organisms SIRS criteria not met Chest x-ray showed no acute cardiopulmonary disease. CT chest showed Multifocal pulmonary airspace consolidation, ground-glass disease, [id number]-left. This is likely secondary to combination of pneumonia/ infection and edema. Small bilateral pleural effusions. Rapid COVID antigen test is negative Patient oxygen saturation is in between 88-94 on 6 L of oxygen. plan: Follow up with sputum culture. Started on IV ceftriaxone 1 g and IV azithromycin 500 mg Q 24 H Started on DuoNebs q.4 H Nebulization with albuterol p.r.n. q.2h 125 mg IV Solu-Medrol was given and started on IV prednisolone 40 mg q.12h 01/25/25: CBC showed elevated leukocytosis, lactic acid and procalcitonin are normal, no signs of infection, elevated white count is due to methylprednisolone. Continue IV ceftriaxone 1 g and IV azithromycin 500 mg Q 24 H 01/26/25: CBC showed elevated leukocytosis, lactic acid and procalcitonin are normal, no signs of infection, elevated white count is due to methylprednisolone. Continue IV ceftriaxone 1 g and IV Levaquin 250 mg Q 24 H Possible acute on chronic heart failure with preserved ejection fraction, LVEF is 70%. Mild pulmonary arterial hypertension. CT scan showed cardiomegaly with small bilateral pleural effusion. BNP level is within normal limits Patient has grade 1 pedal edema. plan: Started on IV Lasix 40 mg b.i.d. daily 01/25/2025: Echocardiogram showed LVEF is 70%. Estimated PA systolic pressure of 35 mm of mercury. Continue IV Lasix 40 mg b.i.d. Strict input and output monitoring, daily weights. Acute kidney injury likely renal tubular stasis Creatinine level up trended to 1.58 from 1.12 BUN/creatinine ratio is 13.9 with GFR of 34 mL/min fena is 8%, urine sodium is 86 Serum osmolality is 311 01/25/25: Started on IV normal saline at the rate of 100 mL/hour Monitor BMP levels 01/26/2025: Creatinine level down trended to 1.16 from 1.58. Discontinued IV fluids. Monitor BMP levels Hypertension Blood pressure is mildly elevated Continue home medication clonidine History of left leg deep vein thrombus CT chest showed no evidence of large pulmonary embolism. No evidence of deep vein thrombus on venous Doppler. Hyperlipidemia Patient LDL level is 138 Continue on home medication atorvastatin 80 mg Hypothyroidism Continue Home medication levothyroxine Obstructive sleep apnea Moderate obesity with BMI of 50.4 Patient is using CPAP at night Follow up with outpatient management. 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 -advised to follow up with outpatient management. Code status: Full code DVT prophylaxis : Heparin GI prophylaxis: Pantoprazole Nutrition: 75 g carb controlled diet Physical therapy: ordered Line/tube: PIV Analgesia/sedation: Morphine Disposition: Continue medical management. Resident attestation The above note has been reviewed and supervised by a senior resident PGY2/PGY3 Patient was seen, examined and discussed with the attending physician Tim Boyer MD Internal Medicine Resident, PGY 1 Date of Service: Jan 26, 2025 Billing Provider: PANDA WAGNER MD Common Visit Codes: [id number] INP/OBS CARE(HIGH) FUNMI BOYER, RES Jan 26, 2025 19:46 PANDA WAGNER MD Jan 27, 2025 07:28
[2025-01-27] VITALS (7 sets, daily range): BP systolic 144; BP diastolic 83; PULSE 77–90; RESP 16–18; TEMP 97; O2SAT 90–92
[2025-01-27 05:15] LABS: HBSAG SCREEN Negative (Negative); HEP B CORE AB, IGM Negative (Negative); HEP B CORE AB, TOT Negative (Negative)
[2025-01-27 06:18] LABS: MEAN PLATELET VOLUME 8.4 FL (7.4-10.4); RED CELL DISTRIBUTION WIDTH 15.2 % (11.5-14.5)
[2025-01-27 06:25] LABS: CREATININE 1.36 MG/DL (0.40-0.90); TOTAL CARBON DIOXIDE 34.9 MMOL/L (24-32); eCRCL 38 ML/MIN; eGFR 41 ML/MIN
[2025-01-27 07:22] LABS: PLATELET ESTIMATE NORMAL
[2025-01-27] MEDS ORDERED: ipratropium/albuterol 3ml nebule NEB PRN (09:05)
[2025-01-27] MEDS: levoFLOXACIN-Levaquin 250mg/D5 50 ML IV SCH (09:15)
[2025-01-27] MEDS: insulin glargine (Lantus) pen - multi-dose SQ ONE (11:40)
--- NOTE | 2025-01-27 20:34 | DISCHARGE SUMMARY-Residence ---
Discharge Summary Providers to CC Resident Creating Document: FUNMI POWERS ELENA, RES ~ Discharge Summary Admission Diagnosis: Shortness of breath Hospital Course DATE OF ADMISSION: 01/24/2025 DATE OF DISCHARGE: 01/27/2025 Discharge Diagnosis\Comment: Acute hypoxic respiratory failure Mild pulmonary arterial hypertension Possible acute on chronic heart failure with preserved ejection fraction, LVEF is 70%. Obstructive sleep apnea Moderate obesity with BMI of 50.4 Possible community-acquired pneumonia Covering Gram-positive, Gram-negative and atypical organisms Possible acute on chronic heart failure with preserved ejection fraction, LVEF is 70%. Mild pulmonary arterial hypertension. Acute kidney injury likely renal tubular stasis Hypertension History of left leg deep vein thrombus Hyperlipidemia Hypothyroidism Obstructive sleep apnea Moderate obesity with BMI of 50.4 New onset diabetes mellitus type 2 Operations\Procedures: None Consultants: None Complications: None Condition on DC: Stable for transfer Discharge Summary: History of present illness from admission: A 54 years old female with past medical history of hypertension, hyperlipidemia, GERD presented to the ER with chief complaint of shortness of the breath and productive cough. She stated that she has shortness of breath for the past 4 days aggravated with activity and swelling of both legs since 2 days. She also reports yellowish productive cough since 4 days what she denies orthopnea, PND, fever, chills, chest pain, abdominal pain, lightheadedness, dizziness. She also endorses that she has generalized weakness, fatigue, intermittent forgetfulness, recent multiple falls but hit her head or did not lose consciousness. Patient discharged from our hospital from mental health unit with diagnosis of bipolar disorder, PTSD and recently they add Depakote and Lyrica to her previous medication. Course in the hospital: Patient was admitted with shortness of breath and yellowish productive cough, generalized weakness, fatigue, intermittent forgetfulness, recent multiple falls but hit her head or did not lose consciousness. Chest x-ray showed Mild bibasilar atelectasis and/or pulmonary airspace disease. CT showed Multifocal pulmonary airspace consolidation, ground-glass disease, [id number]-left. This is likely secondary to combination of pneumonia/ infection and edema,Small bilateral pleural effusions, Cardiomegaly. Patient had Acute hypoxic respiratory failure and pneumonia. Initially, Patient oxygen saturation is in between 88 to 90.Patient was treated with high-flow nasal cannula and 15L of oxygen. IV Solu-Medrol, IV ceftriaxone and IV levofloxacin was given. Patient has mild pulmonary arterial hypertension with acute on chronic heart failure with preserved ejection fraction of 70%. Her BNP is in normal limits. Patient had grade 1 1 pedal edema. Treated with IV Lasix 40 mg b.i.d. daily. Patient has acute kidney injury most likely due to renal tubular stasis and improved with Lasix. Patient HB A1c 6.5. Patient was diagnosed with type 2 diabetes mellitus and started on Lantus 12 units and low-dose insulin Humalog protocol. Patient was advised to take heart healthy diet. Advised to compliance with medication. Patient was advised to use CPAP during night. Patient condition was improved significantly during the course of hospitalization. Patient needs oxygen for about 10 days. So patient was transferred to SNF with oxygen and medications. Patient condition was stable at the time of discharge. Patient was advised to call 911 or go to ER immediately, in case of any worsening of symptoms. Imaging: Chest x-ray: 01/24/25: No acute cardiopulmonary disease. 01/25/25: Mild bibasilar atelectasis and/or pulmonary airspace disease. CTA chest: No evidence for large pulmonary embolism. Multifocal pulmonary airspace consolidation, ground-glass disease, [id number]-[id number]-[id number]-left. This is likely secondary to combination of pneumonia/ infection and edema. Follow-up to resolution. Small bilateral pleural effusions. Cardiomegaly. Hepatosplenomegaly. Hepatic steatosis. Vascular ultrasound of lower extremities: NO EVIDENCE OF DEEP VENOUS THROMBOSIS. Echocardiogram: Overall LVEF is 70%. Normal LV size and wall thickness. Overall systolic function is normal. RV is normal size and function. Estimated PA systolic pressure of 35 mm of mercury. Trileaflet AV appears mildly sclerotic without stenosis. No insufficiency. Mild mitral annular calcification witihout stenosis. Trace regurgitation. The tricuspid valve is normal in structure with trace regurgitation. Pulmonic valve is grossly normal in structure with physiologic insufficiency. Normal pericardium. No effusion. Examination at discharge: Awake , alert and oriented to time,place, person, morbidly obese, not in distress HEENT: Atraumatic, normocephalic, PERRLA, EOMI, anicteric sclera ; pink conjunctiva, moist mucos membranes Neck: Trachea midline. Supple, normal range of motion, no JVD, no lymphadenopathy Chest and Respiratory: Equal breath sounds bilaterally, no tachypnea, no wheeze , ronchi,rubs .Chest wall is symmetric and without deformity. Cardiac: S1, S2 heard,Regular rate and rhythm, no murmurs heard. Abdomen: Soft, No tenderness, No guarding or rigidity, Patrick's sign negative. normal bowel sounds x4 quadrant, no hepatosplenomegaly MSK: Range of motion of all extremities are normal. There is no joint pain or joint swelling or joint erythema. There is no muscle pain or tenderness or swelling. Extremities: Grade 1 pedal edema improved, warm, well-perfused, No cyanosis, clubbing, 2+ pulses felt Neurological: Speech is clear, alert, and oriented x 4. No sensory or motor deficits. Cranial nerves II-XII intact. Skin: Warm and dry Psychiatry: Affect and mood are normal Vital Signs Date Time Temp Pulse Resp B/P (MAP) Pulse Ox O2 Delivery O2 Flow Rate FiO2 01/27/25 16:12 88 16 90 12.0 01/27/25 08:00 High Flow Nasal Cannula 01/27/25 03:11 75 01/27/25 02:00 97.0 144/83 (103) Laboratory Tests Test 01/25/25 20:18 01/26/25 05:21 01/26/25 13:10 01/26/25 18:01 Glucometer 272 mg/dl 301 mg/dl 293 mg/dl White Blood Count 12.5 X10'3 Red Blood Count 3.81 X10'6 Hemoglobin 11.3 g/dl Hematocrit 33.1 % Mean Corpuscular Volume 87.1 FL Mean Corpuscular Hemoglobin 29.7 PG Mean Corpuscular Hemoglobin Concent 34.1 g/dL Red Cell Distribution Width 15.3 % Platelet Count 242 X10'3 Mean Platelet Volume 8.5 FL Neutrophils (%) (Auto) 88.1 % Lymphocytes (%) (Auto) 7.3 % Monocytes (%) (Auto) 4.5 % Eosinophils (%) (Auto) 0 % Basophils (%) (Auto) 0.1 % Neutrophils # (Auto) 11.0 X10'3 Lymphocytes # (Auto) 0.9 X10'3 Monocytes # (Auto) 0.6 X10'3 Eosinophils # (Auto) 0.0 X10'3 Basophils # (Auto) 0.0 X10'3 CBC Comment Sodium Level 142 MMOL/L Potassium Level 4.2 MMOL/L Chloride Level 100 MMOL/L Carbon Dioxide Level 32.2 MMOL/L Anion Gap 10 Blood Urea Nitrogen 31 MG/DL Creatinine 1.16 MG/DL Estimated GFR/1.73 m2 49 ML/MIN BUN/Creatinine Ratio 26.7 Glucose Level 244 MG/DL Calcium Level 8.9 MG/DL Albumin 3.2 G/DL Chemistry Comments Test 01/26/25 20:58 01/27/25 05:05 01/27/25 07:10 01/27/25 10:58 Glucometer 311 mg/dl 281 mg/dl 308 mg/dl White Blood Count 10.1 X10'3 Red Blood Count 3.88 X10'6 Hemoglobin 11.6 g/dl Hematocrit 34.4 % Mean Corpuscular Volume 88.5 FL Mean Corpuscular Hemoglobin 29.9 PG Mean Corpuscular Hemoglobin Concent 33.7 g/dL Red Cell Distribution Width 15.2 % Platelet Count 222 X10'3 Mean Platelet Volume 8.4 FL Neutrophils (%) (Auto) 84.8 % Lymphocytes (%) (Auto) 10.3 % Monocytes (%) (Auto) 4.8 % Eosinophils (%) (Auto) 0 % Basophils (%) (Auto) 0.1 % Neutrophils # (Auto) 8.5 X10'3 Lymphocytes # (Auto) 1.0 X10'3 Monocytes # (Auto) 0.5 X10'3 Eosinophils # (Auto) 0.0 X10'3 Basophils # (Auto) 0.0 X10'3 CBC Comment Platelet Estimate Normal Red Blood Cell Morphology Perf Basophilic Stippling Stomatocytes 2+ Sodium Level 140 MMOL/L Potassium Level 4.1 MMOL/L Chloride Level 97 MMOL/L Carbon Dioxide Level 34.9 MMOL/L Anion Gap 8 Blood Urea Nitrogen 36 MG/DL Creatinine 1.36 MG/DL Estimated GFR/1.73 m2 41 ML/MIN BUN/Creatinine Ratio 26.5 Glucose Level 294 MG/DL Calcium Level 9.1 MG/DL Albumin 3.3 G/DL Chemistry Comments Discharge instructions: Patient was advised to follow up with PCP in 2 weeks. Advised to continue IV Solu-Medrol. Advised to continue Lasix. Advised to continue IV ceftriaxone and azithromycin for 3 days. Advised to compliant with medication. Advised to use CPAP during nights. Advised to check HbA1c after 6 months and follow up with PCP. In case of Of any worsening of symptoms, call 911 or go to ER immediately. *Problems/Diagnosis: (1) Acute hypoxic respiratory failure (2) Mild pulmonary arterial systolic hypertension (3) Acute on chronic heart failure with preserved ejection fraction (4) Obstructive sleep apnea (5) Moderate obesity (6) BMI 50.0-59.9, adult (7) Community acquired pneumonia (8) Acute kidney injury (9) Hypertension (10) Hyperlipidemia (11) New onset type 2 diabetes mellitus Total Time Spent on D/C: > 30 Minutes Date of Service: Jan 27, 2025 Billing Provider: PANDA WAGNER MD Common Visit Codes: 70455-KAG/OBS DISCH DAY >30min FUNMI POWERS, RES Jan 27, 2025 20:24 PANDA WAGNER MD Jan 28, 2025 09:37
[2025-01-27] MEDS ORDERED: insulin glargine (Lantus) pen - multi-dose SQ SCH (21:00)
== END 2025-01-27 16:15 | DRG 133 ==
LOC: ER 08:55 → ED HOLD 17:17 → SUR 3N 23:05 → PCU 3S 01-25 00:30
PROVIDERS: ADMIT Internal Medicine; ATTEND Internal Medicine
PROC: 5A09357 Assistance with Respiratory Ventilation, Less than 24 Consecutive Hours, Continuous Positive Airway Pressure (ICD-10-PCS; principal; 2025-01-25)
PROC: 5A0935A Assistance with Respiratory Ventilation, Less than 24 Consecutive Hours, High Flow/Velocity Cannula (ICD-10-PCS; 2025-01-25)
PROC: 5A0935A Assistance with Respiratory Ventilation, Less than 24 Consecutive Hours, High Flow/Velocity Cannula (ICD-10-PCS; 2025-01-26)
DX: J96.01 Acute respiratory failure with hypoxia (principal); N17.0 Acute kidney failure with tubular necrosis; I50.33 Acute on chronic diastolic (congestive) heart failure; I27.21 Secondary pulmonary arterial hypertension; J18.9 Pneumonia, unspecified organism; I11.0 Hypertensive heart disease with heart failure; Z68.43 Body mass index [BMI] 50.0-59.9, adult; Z20.822 Contact with and (suspected) exposure to COVID-19; F31.9 Bipolar disorder, unspecified; F41.9 Anxiety disorder, unspecified; K21.9 Gastro-esophageal reflux disease without esophagitis; E78.5 Hyperlipidemia, unspecified; F43.10 Post-traumatic stress disorder, unspecified; G47.33 Obstructive sleep apnea (adult) (pediatric); E66.9 Obesity, unspecified; E03.9 Hypothyroidism, unspecified; E11.9 Type 2 diabetes mellitus without complications; Z79.899 Other long term (current) drug therapy; Z87.891 Personal history of nicotine dependence
CPT/HCPCS: 36415; 36600; 71045; 71275; 80048; 80053; 80061; 80305; 80320; 81003; 82550; 82570; 82803; 82948; 83036; 83605; 83735; 83880; 83930; 83935; 84100; 84145; 84300; 84443; 84484; 85008; 85018; 85025; 85610; 85730; 86704; 86705; 87040; 87081; 87340; 87811; 93005; 93306; 93971; 94640; 94660; 94760; 96365; 96368; 96375; 96376; 97116; 97161; 97530; 99285; A4314; G0378; J0456; J0696; J1200; J1644; J1815; J1938; J1956; J2919; J7030; J7040; Q9967

== ENCOUNTER 2025-03-02 10:33 | Emergency (ER) | payer MEDICAID ==
[~2025-03-02] VITALS: Ht 160 cm; Wt 131.0 kg
[2025-03-02 10:44] VITALS: TEMP 98.6
[2025-03-02] MEDS: normal saline 1000ML IV soln IVB ONE (11:02)
--- NOTE | 2025-03-02 11:07 | Physician Documentation ---
History of Present Illness ~ Chief Complaint: Hyperglycemia Stated Complaint: HIGH SUGAR LEVELS Time Seen by MD: 10:57 Primary Medical Doctor: NONE HPI 54 yo F, hx COPD, DMII, [facility] with elevated blood sugars. Patient is a limited historian. She tells me that she was recently admitted, then in a rehab facility and yesterday left in his now living in a [facility]. She tells me that she did not have the right diabetic supplies and so she was not able to take her insulin correctly for the past 2 days. Her blood sugar was high, and so she was sent here to the ER. She does report intermittent shortness of breath. She denies any nausea, vomiting, abdominal pain. Per paperwork with the patient, it appears that she had a blood sugar of 393. Parameters said that they had to send her to the hospital fit was above 349. The request is for her to be medically cleared and to be prescribed test strips for her glucometer. Medication Reconciliation Allergies: Coded Allergies: No Known Drug Allergies (Verified Allergy, Unknown, 01/12/25) Scheduled Atorvastatin Calcium (Atorvastatin Calcium), 1 TAB PO DAILY Blood Sugar Diagnostic (Freestyle Lite Test Strips), 1 STRIP METER TID Clonidine HCl (Clonidine HCl), 1 TAB PO DAILY Clonidine HCl (Clonidine HCl), 1 TAB PO HS Divalproex Sodium (Divalproex Sodium ER), 2 TAB PO HS Levothyroxine Sodium (Levothyroxine Sodium), 100 MCG PO DAILY@07 Pramipexole Di-Hcl (Pramipexole Dihydrochloride), 1 TAB PO HS Pregabalin (LYRICA capsule), 150 MG PO BID Quetiapine Fumarate (Quetiapine Fumarate), 1 TAB PO HS Trazodone HCl (Trazodone HCl), 1 TAB PO HS Past Medical History Past Medical History: Hypertension, Anxiety, Bipolar, Depression Patient History: FH: bipolar disorder FATHER, Onset:Unknown FH: schizophrenia FATHER, Onset:Unknown FH: suicide GRANDFATHER OR GRANDMOTHER, Onset:Unknown Maternal grandfather Drug Use: other Review of Systems Constitutional: Denies: fever Respiratory: Reports: shortness of breath Physical Exam Vital Signs: Temperature: 98.6, Source: Oral, Heart Rate: 106, Respiratory Rate: 16, BP: 114/68, Pulse Oximetry: 95, Weight: 131.000 Oxygen Flow Rate: 3.0 Physical Exam General: This is a pleasant middle-aged woman sitting calmly in bed HEENT: Atraumatic, oropharynx appears dry Heart: Mild tachycardic, appears regular Lungs: Scattered expiratory wheezes, lungs are otherwise clear, oxygen saturations 92% on room air Abdomen: Soft, nondistended, nontender Neuro: Alert and oriented Psychiatric: Calm and cooperative with exam Progress Results/Orders Results/Orders Orders - MAURIZIO MARQUEZ MD Urinalysis, Cult If Indicated (03/02/25 10:57) Completed Orders - MAURIZIO MARQUEZ MD Cbc/Diff (03/02/25 10:57) CMP (03/02/25 10:57) Ipratropium/Albuterol Nebule (Ipratrop/A (03/02/25 12:10) Medications Received in ER Medications (Trade) Dose Ordered Sig/Melony Route PRN Reason Start Time Stop Time Status Last Admin Dose Admin (0.9% sodium chloride (NS) 1000ml IV soln) 500 ml ONCE ONCE IVB 03/02/25 11:00 03/02/25 11:01 DC 03/02/25 11:02 500 ML Vital Signs 03/02/25 03/02/25 10:37 10:44 Temp 98.6 Pulse 109 106 Resp 15 16 B/P (MAP) 127/86 114/68 (83) Pulse Ox 93 95 O2 Flow Rate 2.0 3.0 Laboratory Tests Test 03/02/25 11:05 03/02/25 11:12 Glucometer 369 H White Blood Count 3.3 L Red Blood Count 3.35 L Hemoglobin 10.4 L Hematocrit 30.8 L Mean Corpuscular Volume 92.0 Mean Corpuscular Hemoglobin 31.0 Mean Corpuscular Hemoglobin Concent 33.7 Red Cell Distribution Width 16.8 H Platelet Count 172 Mean Platelet Volume 8.2 Neutrophils (%) (Auto) 57.8 Lymphocytes (%) (Auto) 28.6 Monocytes (%) (Auto) 10.4 Eosinophils (%) (Auto) 2.3 Basophils (%) (Auto) 0.9 Neutrophils # (Auto) 1.9 Lymphocytes # (Auto) 0.9 L Monocytes # (Auto) 0.3 Eosinophils # (Auto) 0.1 Basophils # (Auto) 0.0 CBC Comment Sodium Level 141 Potassium Level 3.3 L Chloride Level 102 Carbon Dioxide Level 32.8 H Anion Gap 6 L Blood Urea Nitrogen 12 Creatinine 1.21 H Estimated GFR/1.73 m2 47 BUN/Creatinine Ratio 9.9 L Glucose Level 357 H Calcium Level 8.3 L Phosphorus Level 2.4 Magnesium Level 1.9 Total Bilirubin 0.6 Aspartate Amino Transf (AST/SGOT) 14 Alanine Aminotransferase (ALT/SGPT) 35 Alkaline Phosphatase 59 Troponin I High Sensitivity 6 Total Protein 6.6 Albumin 3.0 L Globulin 3.6 Albumin/Globulin Ratio 0.8 L Chemistry Comments Medical Decision Making Additional information obtaine: other Findings Reviewed paperwork from the patient's living facility Differential Dx:Considerations: Include: Dehydration, Diabetes, Diabetic coma, DKA, Electrolyte abnormality, Hyperglycemia Differential Diagnosis The patient presents with elevated blood glucose. She otherwise is essentially asymptomatic except for chronic shortness of breath. Labs do show hyperglycemia but no evidence of DKA or other dangerous complication. It appears she was primarily sent here to get a prescription for test strips for her glucometer so she can take her insulin appropriately. She is not appear to have an acute medical or surgical emergency at this time. She will be discharged with a prescription for test strips and ongoing outpatient management. Departure Time of Disposition: 12:48 Disposition: 01 HOME / SELF CARE / HOMELESS Impression: Primary Impression: Hyperglycemia Condition: Improved Discharge Instructions: Hyperglycemia, [id number] Referrals: NO PRIMARY CARE PROVIDER (PCP) Prescriptions Blood Sugar Diagnostic (Freestyle Lite Test Strips) 1 Each Strip 1 STRIP METER TID for 30 Days, #90 STRIP 2 Refills Prov: MAURIZIO MARQUEZ MD 03/02/25 Education Educated: Patient Educated regarding: diagnosis, treatment, need for follow up Signature Scribe Signature: rachel Attestation: MAURIZIO Stallworth MD Mar 02, 2025 11:07
[2025-03-02 11:43] LABS: MEAN PLATELET VOLUME 8.2 FL (7.4-10.4); RED CELL DISTRIBUTION WIDTH 16.8 % (11.5-14.5)
[2025-03-02 11:57] LABS: CREATININE 1.21 MG/DL (0.40-0.90); PHOSPHORUS 2.4 MG/DL (2.3-4.5); TOTAL CARBON DIOXIDE 32.8 MMOL/L (24-32); eCRCL 44 ML/MIN; eGFR 47 ML/MIN
[2025-03-02] MEDS ORDERED: BLOO-1084 METER (12:50)
[2025-03-02] MEDS: ipratropium/albuterol 3ml nebule NEB ONE (13:21)
[2025-03-02 13:23] VITALS: PULSE 89; RESP 18; O2SAT 100
[2025-03-02 13:27] VITALS: PULSE 94; RESP 18; O2SAT 94
[2025-03-02 13:34] VITALS: BP 145/87; PULSE 91; RESP 16; O2SAT 98
== END 2025-03-02 14:26 | disposition home or self-care (01) ==
LOC: ER 10:33
DX: E11.65 Type 2 diabetes mellitus with hyperglycemia (principal); F31.9 Bipolar disorder, unspecified; I10 Essential (primary) hypertension; J44.9 Chronic obstructive pulmonary disease, unspecified; F41.9 Anxiety disorder, unspecified; Z79.899 Other long term (current) drug therapy
CPT/HCPCS: 36415; 80053; 82948; 83735; 84100; 84484; 85025; 94640; 96360; 99284; J7030; 94760

== ENCOUNTER 2025-03-06 19:03 | Emergency (ER) | payer MEDICAID ==
[~2025-03-06] VITALS: Ht 160 cm; Wt 126.0 kg
[~2025-03-06 19:03] MED LIST changes: +BLOO-1084 METER
[2025-03-06 19:59] LABS: MEAN PLATELET VOLUME 7.7 FL (7.4-10.4); RED CELL DISTRIBUTION WIDTH 16.8 % (11.5-14.5)
[2025-03-06 20:12] LABS: CREATININE 1.25 MG/DL (0.40-0.90); TOTAL CARBON DIOXIDE 32.9 MMOL/L (24-32); eCRCL 43 ML/MIN; eGFR 45 ML/MIN
[2025-03-06 20:18] LABS: PRO BRAIN NATRIURETIC PEPTIDE 39 PG/ML (0-125)
[2025-03-06 21:08] VITALS: TEMP 97.8
--- NOTE | 2025-03-06 23:02 | Physician Documentation ---
History of Present Illness ~ Chief Complaint: Extremity Swelling Stated Complaint: LEG SWELLING Time Seen by MD: 22:45 Primary Medical Doctor: NONE Mode of Arrival: POV HPI 54 year old female reports that she has noted her lower extremities to become increasingly swollen. She was recently hospitalized here for pneumonia and during that hospitalization was diagnosed with diabetes and COPD and placed on appropriate medications. She was also started on lasix for lower extremity swelling and she has been taking these at her care facility as prescribed. However she continues to experience increasing BLE swelling. Denies orthopnea, shortness of breath, fevers, N/V/D, cough. Medication Reconciliation Allergies: Coded Allergies: No Known Drug Allergies (Verified Allergy, Unknown, 01/12/25) Scheduled Atorvastatin Calcium (Atorvastatin Calcium), 1 TAB PO DAILY Blood Sugar Diagnostic (Freestyle Lite Test Strips), 1 STRIP METER TID Clonidine HCl (Clonidine HCl), 1 TAB PO DAILY Clonidine HCl (Clonidine HCl), 1 TAB PO HS Divalproex Sodium (Divalproex Sodium ER), 2 TAB PO HS Levothyroxine Sodium (Levothyroxine Sodium), 100 MCG PO DAILY@07 Pramipexole Di-Hcl (Pramipexole Dihydrochloride), 1 TAB PO HS Pregabalin (LYRICA capsule), 150 MG PO BID Quetiapine Fumarate (Quetiapine Fumarate), 1 TAB PO HS Trazodone HCl (Trazodone HCl), 1 TAB PO HS Past Medical History Past Medical History: Hypertension, Anxiety, Bipolar, Depression Patient History: FH: bipolar disorder FATHER, Onset:Unknown FH: schizophrenia FATHER, Onset:Unknown FH: suicide GRANDFATHER OR GRANDMOTHER, Onset:Unknown Maternal grandfather Drug Use: other Review of Systems All Other Systems at this time: Reviewed and Negative Physical Exam Vital Signs: RN Vital Signs have been reviewed: Yes, Temperature: 97.8, Source: Oral, Heart Rate: 95, Respiratory Rate: 18, BP: 144/73, Pulse Oximetry: 95, Weight: 126.050 Oxygen Flow Rate: 0 General Appearance General: Alert, no apparent distress. Neck: Full range of motion. Respiratory: no distress Extremities: Normal range of motion, no deformity. 2+ pitting edema to BLE to knee with no discoloration, oozing, erythema, warmth, or crusting. Neurologic: Oriented x4. Psychiatric: Normal mood and affect. Skin: Normal color, warm and dry. No edema, no ecchymosis. Progress Results/Orders Results/Orders Completed Orders - BOBBI ZUNIGA MD Cbc/Diff (03/06/25 19:18) CMP (03/06/25 19:18) PBNP (03/06/25 19:18) Vital Signs 03/06/25 03/06/25 03/06/25 19:11 21:08 22:39 Temp 97.7 97.8 Pulse 110 102 95 Resp 18 14 16 B/P (MAP) 109/80 118/88 (98) 144/73 (96) Pulse Ox 96 97 95 O2 Flow Rate 0 0 0 Laboratory Tests Test 03/06/25 19:34 White Blood Count 4.3 L Red Blood Count 3.60 L Hemoglobin 11.3 L Hematocrit 32.7 L Mean Corpuscular Volume 91.0 Mean Corpuscular Hemoglobin 31.3 H Mean Corpuscular Hemoglobin Concent 34.4 Red Cell Distribution Width 16.8 H Platelet Count 277 Mean Platelet Volume 7.7 Neutrophils (%) (Auto) 48.0 Lymphocytes (%) (Auto) 39.4 Monocytes (%) (Auto) 9.8 Eosinophils (%) (Auto) 1.8 Basophils (%) (Auto) 1.0 Neutrophils # (Auto) 2.0 Lymphocytes # (Auto) 1.7 Monocytes # (Auto) 0.4 Eosinophils # (Auto) 0.1 Basophils # (Auto) 0.0 CBC Comment Sodium Level 142 Potassium Level 3.1 L Chloride Level 101 Carbon Dioxide Level 32.9 H Anion Gap 8 Blood Urea Nitrogen 13 Creatinine 1.25 H Estimated GFR/1.73 m2 45 BUN/Creatinine Ratio 10.4 Glucose Level 210 H Calcium Level 9.0 Total Bilirubin 0.7 Aspartate Amino Transf (AST/SGOT) 15 Alanine Aminotransferase (ALT/SGPT) 34 Alkaline Phosphatase 67 Pro-B-Type Natriuretic Peptide 39 Total Protein 7.2 Albumin 3.5 Globulin 3.7 Albumin/Globulin Ratio 0.9 L Chemistry Comments Medical Decision Making Additional information obtaine: N/A Findings 54 year old female with bilateral lower extremity swelling. Labs were largely unremarkable and nonspecific for any cause of peripheral edema. Advised follow up with PCP. Differential Dx:Considerations: Include: Congestive heart failure, Compartment syndrome, Deep venous thrombosis, Liver failure, Malnutrition, Renal faliure, Venous insufficiency Departure Disposition: HOME / SELF CARE / HOMELESS Impression: Primary Impression: Edema of lower extremity Condition: Stable Discharge Instructions: Peripheral Edema Referrals: NO PRIMARY CARE PROVIDER (PCP) Education Educated: Patient Educated regarding: diagnosis, treatment, prognosis, need for follow up Signature Scribe Signature: . Attestation: . BOBBI ZUNIGA MD Mar 06, 2025 23:02
[2025-03-06 23:10] VITALS: BP 110/60; PULSE 93; RESP 16; O2SAT 98
== END 2025-03-06 23:15 | disposition home or self-care (01) ==
LOC: ER 19:04
DX: R60.0 Localized edema (principal); E11.9 Type 2 diabetes mellitus without complications; F31.9 Bipolar disorder, unspecified; I10 Essential (primary) hypertension; J44.9 Chronic obstructive pulmonary disease, unspecified; R06.02 Shortness of breath
CPT/HCPCS: 36415; 80053; 83880; 85025; 99283

== ENCOUNTER 2025-03-15 08:06 | Outpatient (CLI) | payer MEDICAID ==
[2025-03-15 09:00] VITALS: PULSE 96; RESP 18; O2SAT 94
--- NOTE | 2025-03-15 13:51 | PROCEDURE NOTE - Respiratory ---
Procedure Note-Respiratory Providers to CC Copies To 1: ALEXI ROSAS MD Procedure Name: This is a spirometry study dated March 15, 2025. Spirometry measurements: Both the forced vital capacity and the FEV1 measurements are in the lower range of normal. The FEV1 ratio is normal. Some of the flow rate measurements are somewhat reduced. Bronchodilator was not administered as part of the study. Conclusion: This study shows mild abnormality. There is evidence for obstructive ventilatory defect although it appears to be mild. Bronchodilator medication may prove to be useful for this patient. This patient should completely abstain from cigarette smoking. SOFIA VARGAS MD Mar 15, 2025 13:51
== END 2025-03-15 23:59 | disposition home or self-care (01) ==
LOC: RT 08:06
PROVIDERS: ATTEND Student in an Organized Health Care Education/Training Program
DX: J44.9 Chronic obstructive pulmonary disease, unspecified (principal)
CPT/HCPCS: 94010; 94760

== ENCOUNTER 2025-03-31 17:56 | Emergency (ER) | payer MEDICAID ==
[~2025-03-31] VITALS: Ht 160 cm; Wt 123.0 kg
[2025-03-31 20:43] LABS: MEAN PLATELET VOLUME 8.6 FL (7.4-10.4); RED CELL DISTRIBUTION WIDTH 16.5 % (11.5-14.5)
--- NOTE | 2025-03-31 20:52 | RADIOLOGY REPORT ---
CHEST RADIOGRAPH Indication: rule out infection Technique: Single frontal view of the chest was obtained Comparison: DI CHEST,SINGLE VIEW on DOS: 01/24/25, DI CHEST,SINGLE VIEW on DOS: 01/24/25, DI CHEST,SINGLE VIEW on DOS: 09/02/24 FINDINGS: Lines and Tubes: None Lungs: No focal consolidation. Pleura: No effusion. No pneumothorax. Cardiomediastinal contours: Unremarkable. 5 mm density overlying the midline lower mediastinum which may be external to the patient. Recommend clinical correlation. Bones: No acute osseous abnormality. IMPRESSION: No acute cardiopulmonary disease.
[2025-03-31 20:55] LABS: CREATININE 1.22 MG/DL (0.40-0.90); TOTAL CARBON DIOXIDE 32.1 MMOL/L (24-32); eCRCL 44 ML/MIN; eGFR 46 ML/MIN
[2025-03-31 21:04] LABS: PRO BRAIN NATRIURETIC PEPTIDE 75 PG/ML (0-125)
[2025-03-31 23:32] LABS: LEUKOCYTE ESTERASE ,URINE NEGATIVE (Neg); NITRITES, URINE NEGATIVE (Neg); OCCULT BLOOD,URINE NEGATIVE (Neg)
[2025-03-31 23:37] LABS: UA COLLECTION TYPE CLN CATCH MIDSTREAM
[2025-03-31 23:42] LABS: URINE AMPHETAMINE SCREEN NEGATIVE (Neg); URINE BARBITUATE SCREEN NEGATIVE (Neg); URINE BENZODIAZEPINES SCREEN NEGATIVE (Neg); URINE CANNABINOID SCREEN NEGATIVE (Neg); URINE COCAINE SCREEN NEGATIVE (Neg); URINE METHADONE SCREEN NEGATIVE (Neg); URINE OPIATE SCREEN NEGATIVE (Neg); URINE PHENCYCLIDINE SCREEN NEGATIVE (Neg)
--- NOTE | 2025-04-01 01:36 | Physician Documentation ---
History of Present Illness ~ Chief Complaint: Mental Health Eval Stated Complaint: SI Time Seen by MD: 18:55 OK to notify your PCP?: Yes Primary Medical Doctor: SOREN GARAY Source: patient, RN/, RN notes reviewed, old records Mode of Arrival: POV Exam Limitations: no limitations HPI Patient is a very pleasant 55-year-old female that presents to the emergency department for evaluation of suicidal ideation and significant depression. Patient is currently living at the crisis Center. She reports that her depression has increased significantly as of late and she would attempt suicide and has had several plans to do so but has not had the materials or availability to do so at the center. Patient reports that she has had several significant attempts of suicide in the past including hanging jumping out in front of a car overdosing on medications and multiple episodes of self-harm. The patient is very tearful today he reports that she feels significant emotional pain. Patient reports he has a history significant for hypothyroidism anxiety depression and high blood pressure. Patient denies any illicit drug use or alcohol use at this time. Patient denies desire to harm anyone else other than herself at this time. Patient denies any other symptoms at this time. Medication Reconciliation Allergies: Coded Allergies: No Known Drug Allergies (Verified Allergy, Unknown, 03/31/25) Scheduled Atorvastatin Calcium (Atorvastatin Calcium), 1 TAB PO DAILY Blood Sugar Diagnostic (Freestyle Lite Test Strips), 1 STRIP METER TID Clonidine HCl (Clonidine HCl), 1 TAB PO DAILY Clonidine HCl (Clonidine HCl), 1 TAB PO HS Divalproex Sodium (Divalproex Sodium ER), 2 TAB PO HS Levothyroxine Sodium (Levothyroxine Sodium), 100 MCG PO DAILY@07 Levothyroxine Sodium (Levothyroxine), 1 TAB PO DAILY Pramipexole Di-Hcl (Pramipexole Dihydrochloride), 1 TAB PO HS Pregabalin (LYRICA capsule), 150 MG PO BID Quetiapine Fumarate (Quetiapine Fumarate), 1 TAB PO HS Trazodone HCl (Trazodone HCl), 1 TAB PO HS Past Medical History Past Medical History: Hypertension, Anxiety, Bipolar, Depression Patient History: FH: bipolar disorder FATHER, Onset:Unknown FH: schizophrenia FATHER, Onset:Unknown FH: suicide GRANDFATHER OR GRANDMOTHER, Onset:Unknown Maternal grandfather Smoking Status: Never smoker Drug Use: other Review of Systems ROS As stated above in the HPI, otherwise all systems are reviewed and negative. Physical Exam Vital Signs: RN Vital Signs have been reviewed: Yes, Temperature: 97.8, Source: Temporal, Heart Rate: 100, Respiratory Rate: 18, BP: 120/94, Pulse Oximetry: 97, Weight: 123.000 Oxygen Flow Rate: 0 Physical Exam VITALS: Reviewed and as above. GENERAL: Alert, no apparent distress. HEENT: Normocephalic, atraumatic, PERRL, EOMI, dry mucosa, no erythema RESPIRATORY: Lungs clear, normal breath sounds, no respiratory distress. CHEST: No accessory muscle use, no retractions CV: Regular rate, rhythm, no edema, no murmur, No: JVD GI: Soft, non-tender, bowels sounds present, no rebound, guarding, or rigidity BACK: No CVA tenderness, or swelling MUSCULOSKELETAL No deformities, no edema SKIN: Warm and dry, no rash NEURO: Oriented x4, No motor or sensory deficit PSYCH: Normal mood and affect, no agitation suicidal Progress Results/Orders Reviewed/noted all lab results: Yes Results/Orders Orders - VÍCTOR JOSHUA MD Levothyroxine Tablet (Synthroid Tablet) (04/01/25 07:00) Levothyroxine Tablet (Synthroid Tablet) (04/01/25 01:30) Quetiapine Fumarate Tablet (Seroquel) (04/01/25 03:50) Completed Orders - VÍCTOR JOSHUA MD Chlordiazepoxide Capsule (Librium Capsul (04/01/25 03:50) Medications Received in ER Medications (Trade) Dose Ordered Sig/Melony Route PRN Reason Start Time Stop Time Status Last Admin Dose Admin (Synthroid tablet) 100 mcg ONCE PO 04/01/25 01:30 04/01/25 02:19 100 MCG (Librium capsule) 50 mg ONCE ONCE PO 04/01/25 03:50 04/01/25 04:03 DC 04/01/25 03:50 50 MG (Seroquel) 25 mg ONCE PO 04/01/25 03:50 04/01/25 03:58 25 MG Vital Signs 03/31/25 03/31/25 03/31/25 03/31/25 18:00 18:44 21:00 21:00 Temp 97.8 98.2 Pulse 100 80 Resp 18 18 16 B/P (MAP) 120/94 134/80 (98) Pulse Ox 97 99 O2 Flow Rate 0 04/01/25 04/01/25 03:50 05:30 Temp 98.2 Pulse 70 Resp 16 18 B/P (MAP) 134/80 (98) Pulse Ox 99 O2 Flow Rate 0 Laboratory Tests Test 03/31/25 19:10 03/31/25 20:05 03/31/25 20:35 Urine Specimen Description Cln catch midstream Urine Color Yellow Urine Clarity Clear Urine pH 7.5 Urine Specific [place] 1.015 Urine Protein Negative Urine Glucose (UA) Negative Urine Ketones Negative Urine Occult Blood Negative Urine Nitrite Negative Urine Bilirubin Negative Urine Urobilinogen 0.2 Urine Leukocyte Esterase Negative Urine Culture Indicated Not ind Volume Urine Centrifuged 10 ml Urine Comment Urine Opiates Screen Negative Urine Methadone Screen Negative Urine Fentanyl Screen Negative Urine Barbiturates Screen Negative Urine Phencyclidine Screen Negative Urine Amphetamines Screen Negative Urine Benzodiazepines Screen Negative Urine Cocaine Screen Negative Urine Cannabinoids Screen Negative Drug Screen Comment SARS-CoV-2 Antigen (Rapid) Negative White Blood Count 7.0 Red Blood Count 3.66 L Hemoglobin 11.2 L Hematocrit 33.1 L Mean Corpuscular Volume 90.3 Mean Corpuscular Hemoglobin 30.5 Mean Corpuscular Hemoglobin Concent 33.7 Red Cell Distribution Width 16.5 H Platelet Count 237 Mean Platelet Volume 8.6 Neutrophils (%) (Auto) 61.9 Lymphocytes (%) (Auto) 26.3 Monocytes (%) (Auto) 6.0 Eosinophils (%) (Auto) 4.7 Basophils (%) (Auto) 1.1 H Neutrophils # (Auto) 4.3 Lymphocytes # (Auto) 1.8 Monocytes # (Auto) 0.4 Eosinophils # (Auto) 0.3 Basophils # (Auto) 0.1 CBC Comment Sodium Level 146 H Potassium Level 3.9 Chloride Level 111 H Carbon Dioxide Level 32.1 H Anion Gap 3 L Blood Urea Nitrogen 23 H Creatinine 1.22 H Estimated GFR/1.73 m2 46 BUN/Creatinine Ratio 18.9 Glucose Level 95 Calcium Level 8.6 Total Bilirubin 0.4 Aspartate Amino Transf (AST/SGOT) 12 Alanine Aminotransferase (ALT/SGPT) 19 Alkaline Phosphatase 80 Pro-B-Type Natriuretic Peptide 75 Total Protein 6.9 Albumin 3.2 L Globulin 3.7 Albumin/Globulin Ratio 0.9 L Thyroid Stimulating Hormone (TSH) 23.08 H Free Thyroxine 0.48 L Chemistry Comments Re-Evaluation Re-Evaluation : Re-Evaluation: Unchanged Progress Patient was seen and examined. Patient was given reassurance. Patient was placed on a 1799. Patient also received some Librium for some agitation as well as Seroquel for sleep. Patient was found to have an abnormal thyroid function test no history of thyroid disorders. Patient's TSH was elevated at 23.08 free T4 is low at 0.48 patient received a loading dose of levothyroxine at 100 mcg and then prescribed 75 mcg daily and will need to follow up with the primary care physician or plating operator who were her thyroid functions. However patient is being treated. Other laboratory work shows a normal CBC some mild anemia with a hemoglobin 11 hematocrit of 33. Chemistry shows some mild dehydration with a sodium of 146 potassium 3.9 chloride 111 CO2 32 BUN 23 creatinine 1.22. Patient needs to drink some free water. LFTs are within normal limits. Patient's tox screen was negative urinalysis shows a specific gravity of 1.015. COVID was negative. Patient will be medically cleared for mental health. 6:30 a.m. Transfer orders for [facility]: At this time there is no evidence of an emergent medical condition that would preclude (admission/transfer) to a psychiatric unit via [facility] protocol for further psychiatric, as well as medical evaluation and treatment. At this time I have no reason to believe that transfer via [facility] protocol would have serious medical compromise in the patient's health. EKG/XRAY/CT/US/VASC/MRI Chest X-Ray : Additional Comments CHEST RADIOGRAPH Indication: rule out infection Technique: Single frontal view of the chest was obtained Comparison: DI CHEST,SINGLE VIEW on DOS: 01/24/25, DI CHEST,SINGLE VIEW on DOS: 01/24/25, DI CHEST,SINGLE VIEW on DOS: 09/02/24 FINDINGS: Lines and Tubes: None Lungs: No focal consolidation. Pleura: No effusion. No pneumothorax. Cardiomediastinal contours: Unremarkable. 5 mm density overlying the midline lower mediastinum which may be external to the patient. Recommend clinical correlation. Bones: No acute osseous abnormality. IMPRESSION: No acute cardiopulmonary disease. Medical Decision Making Additional information obtaine: other Findings Number of Diagnoses/Management Options: High Complexity This 55-year-old female presents to the emergency department with acute suicidal ideation and severe depression, currently under 1799 mental health hold. The patient reports worsening depression with multiple specific suicide plans, though currently without access to means. Her psychiatric history is significant for multiple serious suicide attempts including hanging, jumping in front of a car, medication overdose, and recurrent self-harm episodes. She is tearful and endorses significant emotional pain. She denies homicidal ideation, illicit drug use, or alcohol use. Risk Assessment: The patient is assessed to be at high acute risk for suicide based on multiple factors including active suicidal ideation with specific plans, history of multiple serious suicide attempts using lethal means, current severe depressive symptoms with emotional pain, and recent worsening of symptoms. Previous suicide attempts, particularly those involving high-lethality methods, are strong predictors of increased suicide risk. The patient's expressions of worthlessness, helplessness, and hopelessness are massey clinical indicators of heightened suicide risk. Assessment incorporated evaluation of predisposing and precipitating factors, recent life events, and current psychosocial stressors. The patient's current residence at a crisis center suggests ongoing instability and need for structured support. While she denies access to means, her history demonstrates capability and intent for lethal self-harm. Medical Considerations: Laboratory evaluation reveals TSH elevated at 23, indicating significant hypothyroidism. This medical condition is relevant to her psychiatric presentation, as hypothyroidism can contribute to or exacerbate depressive symptoms. While depression is seen in some overtly hypothyroid patients and usually resolves with treatment, the acute suicide risk requires immediate psychiatric intervention regardless of thyroid status. Additional laboratory and radiologic studies are pending to complete medical clearance. Medical history includes hypothyroidism (currently undertreated based on TSH), anxiety, depression, and hypertension. The elevated TSH suggests either medication non-adherence or inadequate levothyroxine dosing, which should be addressed as part of comprehensive treatment planning. Amount and Complexity of Data: Moderate Complexity Review of available medical records documenting history of multiple suicide attempts and psychiatric hospitalizations. Current laboratory data includes elevated TSH at 23. Additional pending laboratory and imaging studies to rule out other medical contributors to psychiatric symptoms. Collateral information obtained regarding current crisis center placement and recent clinical deterioration. Risk of Complications/Morbidity/Mortality: High The patient presents with imminent risk of suicide requiring immediate intervention and continuous observation. Given the high acute risk assessment, the patient requires direct observation in an environment with limited access to lethal means until transferred to a psychiatric facility. The [employer] guidelines for patients at high acute risk recommend keeping patients away from sharps, cords, tubing, and toxic substances until they are in a safe environment or no longer at high acute risk. Management Plan: Immediate Safety Measures: Patient will remain under 1799 mental health hold with continuous direct observation in the emergency department. Environment has been secured with removal of potential means of self-harm. Medical Clearance: Completing laboratory and radiologic evaluation to identify any contributory medical conditions prior to psychiatric evaluation. The elevated TSH will be communicated to the psychiatric team as a potentially modifiable risk factor requiring treatment. Psychiatric Disposition: Psychiatric hospitalization is indicated to maintain patient safety given high acute risk for suicide, multiple serious prior attempts, active suicidal ideation with plans, and severe depression. Involuntary hospitalization procedures will be followed per local protocols given the patient's current mental health hold status. Treatment Recommendations for Psychiatric Team: Initiate evidence-based treatment to reduce suicide risk, which may include cognitive behavioral therapy for suicide prevention. Address undertreated hypothyroidism with appropriate levothyroxine dose adjustment, targeting TSH normalization. Consider pharmacotherapy for depression with agents that are safe in overdose (e.g., SSRIs such as sertraline) given suicide risk. Develop comprehensive safety plan addressing suicide risk drivers and triggers. Ensure close follow-up after discharge, as recurrence of self-harm is most likely within 3-6 months of presentation. Family/Support Involvement: With patient consent, crisis center staff and any available family members should be involved in safety planning and ongoing treatment. The patient's risk assessment incorporated structured clinical judgment rather than reliance on risk-assessment tools alone, as current evidence does not support use of available tools in isolation to determine disposition. The comprehensive psychiatric assessment will be completed by the mental health team following medical clearance. Overall Medical Decision Making: High Complexity High complexity decision-making based on: (1) multiple diagnoses including severe major depression, acute suicidal ideation, and uncontrolled hypothyroidism; (2) extensive data review including laboratory evaluation and psychiatric history; and (3) high risk of morbidity and mortality requiring immediate psychiatric hospitalization and intensive safety interventions. Differential Dx:Considerations: Include: Alcohol abuse, Anxiety, Bipolar disorder, Conversion disorder, Depression, Encephaloathy, Homicidal, Panic disorder, Personality disorder, Schizophrenia, Substance abuse, Suicidal, Other Departure Disposition: 30 STILL A PATIENT Impression: Primary Impression: Suicidal ideation Additional Impression: Hypothyroid Qualified Codes: E03.9 - Hypothyroidism, unspecified Condition: Stable Discharge Instructions: Hypothyroidism, Suicidal Feelings: How to Help Yourself Referrals: NO PRIMARY CARE PROVIDER (PCP) Prescriptions Levothyroxine Sodium (Levothyroxine) 75 Mcg Capsule 1 TAB PO DAILY for 90 Days, #90 CAP 0 Refills Prov: VÍCTOR JOSHUA MD 04/01/25 Education Educated: Patient Educated regarding: diagnosis Signature Scribe Signature: The note accurately reflects work and decisions made by me.Víctor Joshua MD 04/01/25 06:44 Attestation: The note accurately reflects work and decisions made by me.Víctor Joshua MD 04/01/25 06:44 TRISTEN ALDANA Apr 01, 2025 01:36 VÍCTOR JOSHUA MD Apr 01, 2025 01:39
[2025-04-01] MEDS: levoTHYROXINE 100mcg tablet PO SCH (02:19)
[2025-04-01] MEDS ORDERED: LEVO75CA6 PO (06:39)
[2025-04-01] MEDS: levoTHYROXINE 75mcg tablet PO SCH (07:14)
[2025-04-01] MEDS: levoTHYROXINE 100mcg tablet PO ONE (11:04)
[2025-04-01] MEDS ORDERED: QUET-1 PO (19:22)
[2025-04-01] MEDS ORDERED: PRAM0.258 PO (19:22)
[2025-04-01] MEDS ORDERED: LEVO75TA7 PO (19:31)
[2025-04-02] MEDS ORDERED: MELO-102 PO (07:57)
[2025-04-02] MEDS ORDERED: PANT40TA54 PO (07:57)
[2025-04-02] MEDS ORDERED: LORA-268 PO (07:57)
[2025-04-02] MEDS ORDERED: DIVA500T9 PO (07:57)
[2025-04-02] MEDS ORDERED: FURO40TA4 PO (07:57)
[2025-04-02] MEDS ORDERED: levoTHYROXINE 75mcg tablet PO SCH (08:00)
[2025-04-02] MEDS ORDERED: CLON-478 PO (08:04)
[2025-04-02] MEDS ORDERED: ATOR-429 PO (08:06)
[2025-04-02] MEDS ORDERED: SYN0.088T PO (08:06)
[2025-04-02] MEDS ORDERED: TRAZ-256 PO (08:08)
[2025-04-02] MEDS ORDERED: PREG150C PO (08:08)
[2025-04-02] MEDS ORDERED: LEVO100C5 PO (08:11)
[2025-04-02 08:53] VITALS: RESP 16
[2025-04-02] MEDS ORDERED: CLON0.1T2 PO (08:57)
[2025-04-02] MEDS ORDERED: pantoprazole 40mg Tablet.DR PO SCH (21:00)
[2025-04-02] MEDS ORDERED: divalproex sod 250mg ER (24-hour) tablet PO SCH (21:00)
[2025-04-03 06:22] VITALS: BP 106/66; PULSE 72; TEMP 97.8; O2SAT 96
[2025-04-03] MEDS ORDERED: levoTHYROXINE 100mcg tablet PO SCH (07:30)
[2025-04-03] MEDS ORDERED: MELOXICAM 7.5 MG TABLET PO SCH (08:00)
== END 2025-04-02 14:44 ==
LOC: ER 17:56
DX: R45.851 Suicidal ideations (principal); E03.9 Hypothyroidism, unspecified; I10 Essential (primary) hypertension; F41.9 Anxiety disorder, unspecified; F31.9 Bipolar disorder, unspecified; Z79.899 Other long term (current) drug therapy; Z20.822 Contact with and (suspected) exposure to COVID-19
CPT/HCPCS: 36415; 71045; 80053; 80305; 81003; 82948; 83880; 84439; 84443; 85025; 87811; 99285